=== PATIENT | male | born 1975 | race Caucasian/White ===

== ENCOUNTER 2016-04-11 08:19 | Inpatient (IN) | payer MEDICARE, MEDICAID ==
[~2016-04-11] VITALS: Ht 182.9 cm; Wt 96.6 kg
[2016-04-11] VITALS (9 sets, daily range): BP systolic 110–162; BP diastolic 58–90; PULSE 90–109; RESP 16–22; TEMP 97.4–98.3; O2SAT 95–99
[~2016-04-11 08:19] MED LIST: ALPR.5 PO; AMBI10TA PO; AMIT50TA3 PO; AUGM500T7 PO; COMMODE PAIL WI1 MIS; CRAN125T PO; ENOX40IN SQ; FURO40TA PO; GABA800T PO; HYDR-3583 PO; LACTCAP8 PO; MULT1TAB84 PO; NITR50CA27 PO; OMEP40CA2 PO; PAXI20TA PO; TIZA4CAP3 PO; TRAZ150T75 PO
[2016-04-11] MEDS ORDERED: SODIUM CHLOR 0.9% 1000 ML INJ 1,000 ML IV SCH (08:31)
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
[2016-04-11] MEDS ORDERED: HYDROmorphone HCL PF 1 MG/ML VIAL IVS ONE (08:45)
[2016-04-11] MEDS ORDERED: PANTOPRAZOLE SODIUM 40 MG VIAL IV PUSH ONE (08:45)
[2016-04-11] MEDS ORDERED: ONDANSETRON HCL 4 MG/2 ML VIAL IVP ONE (08:45)
[2016-04-11] MEDS: SODIUM CHLORIDE 0.9% FLUSH 5 ML FLUSH IVF PRN ×2 (09:04→12:04)
[2016-04-11 09:38] LABS: AUTOMATED NEUTROPHIL # 9.9 TH/MM3 (1.8-7.7); BASOPHIL % 0.2 % (0.0-2.0); EOSINOPHIL % 0.4 % (0.0-4.0); HEMATOCRIT 39.3 % (39.0-51.0); LYMPH % 5.3 % (9.0-44.0); LYMPHOCYTE # 0.6 TH/MM3 (1.0-4.8); MEAN CELL VOLUME 77.5 FL (80.0-100.0); MEAN CORPUSCULAR HEMOGLOBIN 24.3 PG (27.0-34.0); MEAN CORPUSCULAR HGB CONC 31.4 % (32.0-36.0); MONO % 2.3 % (0.0-8.0); NEUT % 91.8 % (16.0-70.0); PLATELET COUNT 252 TH/MM3 (150-450); RED BLOOD COUNT 5.07 MIL/MM3 (4.50-5.90); RED CELL DISTRIBUTION WIDTH 14.6 % (11.6-17.2); WHITE BLOOD COUNT 10.7 TH/MM3 (4.0-11.0)
[2016-04-11 09:39] LABS: HEMO FLAGS AUTO DIFF
[2016-04-11 09:44] LABS: BLOOD, URINE NEG (NEG); GLUCOSE,URINE 500 mg/dL (NEG); KETONE, URINE NEG (NEG); NITRITE,URINE NEG (NEG)
[2016-04-11 09:46] LABS: METHOD OF COLLECTION CATH
[2016-04-11 09:46] LABS: BICARBONATE 32.5 MEQ/L (21.0-32.0)
[2016-04-11 09:47] LABS: URINE COLOR YELLOW (YELLW/STRAW)
[2016-04-11 09:49] LABS: COMMENT (UR) CATH; COMMENT2 (UR) MUCOUS PRESENT; SQUAMOUS EPITHELIAL CELL URINE 0-5 /hpf (0-5); TRANSITIONAL EPI CELLS, URINE 0-5 /hpf
[2016-04-11 09:49] LABS: ALT (GPT) 81 U/L (12-78); GLOMERULAR FILTRATION RATE 127 ML/MIN (>89)
[2016-04-11 09:51] LABS: TOTAL BILIRUBIN ADULT 0.7 MG/DL (0.2-1.0)
[2016-04-11 09:52] LABS: ALKALINE PHOSPHATASE 121 U/L (45-117)
[2016-04-11 09:54] LABS: ANION GAP 8 MEQ/L (5-15); CHLORIDE 102 MEQ/L (98-107); POTASSIUM 3.6 MEQ/L (3.5-5.1); SODIUM (NA) 142 MEQ/L (136-145)
[2016-04-11 10:06] LABS: BLOOD UREA NITROGEN 16 MG/DL (7-18)
[2016-04-11 10:07] LABS: AST (GOT) 150 U/L (15-37)
[2016-04-11 10:24] LABS: SCAN/DIFF AUTO DIFF CONFIRMED
[2016-04-11] MEDS ORDERED: IOHEXOL 300 MG/ML 100 ML BTL (for Rad CT) IV ONE (10:37)
--- NOTE | 2016-04-11 11:09 | RADHPO ---
EXAM DATE/TIME: 04/11/2016 10:20 [facility] COMPARISON: CT ABDOMEN & PELVIS W/O CONTRAST, September 26, 2015, 18:29. CT ABDOMEN & PELVIS W CONTRAST, May 08, 2012, 23:47. INDICATIONS: Epigastric pain. Elevated lipase. IV CONTRAST: 95 cc Omnipaque 300 (iohexol) IV ORAL CONTRAST: No oral contrast ingested. RADIATION DOSE: 24.19 CTDIvol (mGy) MEDICAL HISTORY: Gastroesophageal reflux disease. SURGICAL HISTORY: IVC filter. Bilateral thoracotomy. ENCOUNTER: Initial ACUITY: 1 day PAIN SCALE: 1/10 LOCATION: Upper quadrant TECHNIQUE: Volumetric scanning of the abdomen and pelvis was performed. Using automated exposure control and ad justment of the mA and/or kV according to patient size, radiation dose was kept as low as reasonably achievable to obtain optimal diagnostic quality images. FINDINGS: Bibasilar atelectasis and/or scarring is noted. The liver, spleen, pancreas, gallbladder, adrenal glands and kidneys are stable. There is minimal co rtical scarring involving the right posterior kidney. The abdominal aorta is stable. Inferior vena cava filter is noted. no bowel obstruction is noted. The patient is status post bowel surgery in th e region of the sigmoid colon which is stable. The urinary bladder is non-distended and its wall is diffusely thickened. No ascites is noted. There is subcutaneous fluid collection within the right g roin and upper thigh. Previously noted hypertrophic bone formation or possible myositis ossificans w ithin the right hip appears to have been resected. Some hypertrophic bone formation still remains. The collection of fluid in the region of the previously noted bone density measures 8.6 x 4.2 cm. A small calcific density is noted within the region of the left anterior hip also consistent with hyper trophic bone formation or myositis ossificans. Extensive fusion hardware extending from the lower th oracic spine to the lumbar spine is again noted with old severe compression deformities again noted a t T12 and L1. CONCLUSION: 1. Subcutaneous fluid collection within the right groin/upper thigh measuring 8.4 x 4.2 cm in the ex pected location of the previously noted hypertrophic bone or myositis ossificans which may have been resected. This collection likely represents postoperative seroma. 2. No acute intraabdominal process. Christopher Contreras MD on April 11, 2016 at 10:47 Board Certified Radiologist. This report was verified electronically.
[2016-04-11] MEDS ORDERED: PIPERACIL-TAZO 4.5 GM PREMIX 100 ML IV ONE (11:45)
[2016-04-11] MEDS: SODIUM CHLOR 0.9% 1000 ML INJ 1,000 ML IV SCH ×2 (11:52→20:28)
[2016-04-11] MEDS ORDERED: NALOXONE HCL 0.4 MG/ML AMP IV PRN (12:00)
[2016-04-11] MEDS ORDERED: BISACODYL 10 MG SUPP PR PRN (12:00)
[2016-04-11] MEDS ORDERED: SODIUM CHLORIDE 0.9% FLUSH 5 ML FLUSH FLUSH PRN (12:00)
[2016-04-11] MEDS ORDERED: ZOLPIDEM TARTRATE 10 MG TAB PO PRN (12:00)
[2016-04-11] MEDS ORDERED: ALPRAZolam 0.5 MG TAB PO PRN (13:00)
[2016-04-11] MEDS ORDERED: GABAPENTIN 400 MG CAP PO SCH (13:00)
[2016-04-11] MEDS ORDERED: ONDANSETRON HCL 4 MG/2 ML VIAL IVP PRN (13:00)
[2016-04-11] MEDS ORDERED: cefTRIAXone INJ 2,000 MG in SODIUM CHLORIDE 0.9% INJ 100 ML IV SCH (13:00)
[2016-04-11] MEDS ORDERED: ACETAMINOPHEN 325 MG TAB PO PRN (13:00)
[2016-04-11] MEDS ORDERED: PANTOPRAZOLE SOD 40 MG DELAYED RELEASE TAB PO SCH (13:00)
[2016-04-11] MEDS ORDERED: ENOXAPARIN SODIUM 40 MG/0.4 ML SYRINGE SQ SCH (14:00)
[2016-04-11] MEDS: GABAPENTIN 300 MG CAP PO SCH ×3 (14:48→20:43)
[2016-04-11] MEDS: DOCUSATE SODIUM 100 MG CAP PO SCH ×2 (14:56→20:34)
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
[2016-04-11] MEDS: SODIUM CHLORIDE 0.9% FLUSH 5 ML FLUSH FLUSH SCH (20:35)
[2016-04-11] MEDS ORDERED: traZODone HCL 50 MG TAB PO SCH (21:00)
[2016-04-11] MEDS ORDERED: MAGNESIUM HYDROXIDE SUSP 30 ML CUP PO PRN (21:00)
[2016-04-11] MEDS ORDERED: AMITRIPTYLINE HCL 50 MG TAB PO SCH (21:00)
[2016-04-12] VITALS: BP 127/78; PULSE 87; RESP 20; TEMP 98.7; O2SAT 98
[2016-04-12] MEDS: HYDROmorphone HCL PF 1 MG/ML VIAL IV PRN ×2 (01:03→04:40)
[2016-04-12 04:00] VITALS: BP 126/75; PULSE 78; RESP 20; TEMP 99; O2SAT 100
[2016-04-12] MEDS: SODIUM CHLOR 0.9% 1000 ML INJ 1,000 ML IV SCH (04:41)
[2016-04-12 05:42] LABS: AUTOMATED NEUTROPHIL # 3.2 TH/MM3 (1.8-7.7); BASOPHIL % 0.7 % (0.0-2.0); CHLORIDE 102 MEQ/L (98-107); EOSINOPHIL # 0.1 TH/MM3 (0-0.4); EOSINOPHIL % 2.3 % (0.0-4.0); HEMATOCRIT 37.6 % (39.0-51.0); LYMPHOCYTE # 1.8 TH/MM3 (1.0-4.8); MEAN CELL VOLUME 77.4 FL (80.0-100.0); MEAN CORPUSCULAR HEMOGLOBIN 24.2 PG (27.0-34.0); MEAN CORPUSCULAR HGB CONC 31.3 % (32.0-36.0); MONO % 5.6 % (0.0-8.0); NEUT % 58.4 % (16.0-70.0); PLATELET COUNT 237 TH/MM3 (150-450); POTASSIUM 3.7 MEQ/L (3.5-5.1); RED BLOOD COUNT 4.86 MIL/MM3 (4.50-5.90); RED CELL DISTRIBUTION WIDTH 15.1 % (11.6-17.2); SODIUM (NA) 141 MEQ/L (136-145); WHITE BLOOD COUNT 5.4 TH/MM3 (4.0-11.0)
[2016-04-12 05:46] LABS: ANION GAP 6 MEQ/L (5-15); BICARBONATE 32.9 MEQ/L (21.0-32.0)
[2016-04-12 05:57] LABS: ALKALINE PHOSPHATASE 172 U/L (45-117); ALT (GPT) 270 U/L (12-78); AST (GOT) 276 U/L (15-37); BLOOD UREA NITROGEN 5 MG/DL (7-18); GLOMERULAR FILTRATION RATE 149 ML/MIN (>89); TOTAL BILIRUBIN ADULT 1.2 MG/DL (0.2-1.0)
[2016-04-12 06:18] LABS: HEMO FLAGS AUTO DIFF
[2016-04-12 07:21] LABS: SCAN/DIFF AUTO DIFF CONFIRMED
[2016-04-12 08:00] VITALS: BP 111/76; PULSE 102; RESP 18; TEMP 98.1; O2SAT 95
[2016-04-12] MEDS: SODIUM CHLORIDE 0.9% FLUSH 5 ML FLUSH FLUSH SCH (08:14)
[2016-04-12] MEDS: GABAPENTIN 300 MG CAP PO SCH (08:15)
[2016-04-12] MEDS: DOCUSATE SODIUM 100 MG CAP PO SCH (08:16)
[2016-04-12] MEDS ORDERED: FUROSEMIDE 40 MG TAB PO SCH (09:00)
[2016-04-12] MEDS ORDERED: MULTIVITAMINS/MINERALS THERAPEUTIC TAB PO SCH (09:00)
[2016-04-12] MEDS ORDERED: PARoxetine HCL 20 MG TAB PO SCH (09:00)
[2016-04-12] MEDS ORDERED: PANTOPRAZOLE SOD 40 MG DELAYED RELEASE TAB PO SCH (09:00)
[2016-04-12] MEDS ORDERED: POLYETHYLENE GLYCOL 17 GM PKG PO SCH (11:03)
[2016-04-12] MEDS ORDERED: CIPR-9 PO (11:05)
[2016-04-12] MEDS ORDERED: MIRA33504 PO (11:05)
--- NOTE | 2016-04-12 11:06 | HHI.DCPOC ---
Discharge Care Plan Diagnosis: (1) Urinary tract infection (2) Pancreatitis Goals to Promote Your Health * To prevent worsening of your condition and complications * To maintain your health at the optimal level Directions to Meet Your Goals Take your medications as prescribed Follow your dietary instruction Follow activity as directed Keep your appointments as scheduled Take your immunizations and boosters as scheduled If your symptoms worsen call your PCP, if no PCP go to Urgent Care Center or Emergency Room Smoking is Dangerous to Your Health. Avoid second hand smoke Call the 24-hour hour crisis hotline for domestic abuse at Katherine Epperson MD Apr 12, 2016 11:06
--- NOTE | 2016-04-12 11:09 | HHI.DS ---
Discharge Summary Admission Date Apr 11, 2016 at 11:47 Discharge Date: Apr 12, 2016 Admitting Diagnosis ACUTE PANCREATITIS (1) Pancreatitis ICD Code: K85.90 (2) Alcohol abuse ICD Code: F10.10 Procedures None Brief History - From Admission This is a 40-year-old male with past medical history of T12 paraplegia who presented to the ER today complaining of epigastric pain. The patient states he is actually had intermittent epigastric pain ongoing since December of this year. He has been to our hospital several times and has had a CTA pulmonary angiogram which was negative, nuclear cardiac stress test which was negative. However today his lipase is elevated at 8000, however abdominal CT scan is without evidence of pancreatitis and there are no gallstones present. The patient states that the pain currently has resolved. Plans are made for him to undergo an ultrasound. The patient states that he has been drinking about 4-6 beers daily over the holidays. He admits to a past history of heavy drinking before he was paralyzed. The patient did have one episode of vomiting but none since. He has found no talkative factors. Most of the time the pain comes at night. He does take a PPI. He has never had an endoscopy. Alleviating factors are pain medicine. Pain described as severe and usually lasts about 25 minutes and then self resolves. He does get transiently short of breath during these episodes. The patient has UA indicative of infection but he denies fever or chills. CBC/BMP: 04/12/16 0507 04/12/16 0507 Significant Findings Laboratory Tests Test 04/11/16 04/11/16 04/12/16 09:20 09:35 05:07 Hemoglobin 12.3 GM/DL 11.8 GM/DL (13.0-17.0) (13.0-17.0) Mean Corpuscular Volume 77.5 FL 77.4 FL (80.0-100.0) (80.0-100.0) Mean Corpuscular Hemoglobin 24.3 PG 24.2 PG (27.0-34.0) (27.0-34.0) Mean Corpuscular Hemoglobin 31.4 % 31.3 % Concent (32.0-36.0) (32.0-36.0) Mean Platelet Volume 6.9 FL (7.0-11.0) Neutrophils (%) (Auto) 91.8 % (16.0-70.0) Lymphocytes (%) (Auto) 5.3 % (9.0-44.0) Neutrophils # (Auto) 9.9 TH/MM3 (1.8-7.7) Lymphocytes # (Auto) 0.6 TH/MM3 (1.0-4.8) Carbon Dioxide Level 32.5 MEQ/L 32.9 MEQ/L (21.0-32.0) (21.0-32.0) Random Glucose 195 MG/DL 115 MG/DL (74-106) (74-106) Aspartate Amino Transf 150 U/L (15-37) 276 U/L (15-37) (AST/SGOT) Alanine Aminotransferase 81 U/L (12-78) 270 U/L (12-78) (ALT/SGPT) Alkaline Phosphatase 121 U/L 172 U/L (45-117) (45-117) Lipase 8542 U/L (73-393) Urine Glucose (UA) 500 mg/dL (NEG) Urine Leukocyte Esterase TRACE (NEG) Urine WBC 20-24 /hpf (0-5) Urine WBC Clumps FEW (NONE) Hematocrit 37.6 % (39.0-51.0) Blood Urea Nitrogen 5 MG/DL (7-18) Calcium Level 8.1 MG/DL (8.5-10.1) Total Bilirubin 1.2 MG/DL (0.2-1.0) Albumin 3.3 GM/DL (3.4-5.0) Imaging Last Impressions Abdomen/Pelvis CT 04/11/16 1003 Signed Impressions: Service Date/Time: Monday, April 11, 2016 10:20 - CONCLUSION: 1. Subcutaneous fluid collection within the right groin/upper thigh measuring 8.4 x 4.2 cm in the expected location of the previously noted hypertrophic bone or myositis ossificans which may have been resected. This collection likely represents postoperative seroma. 2. No acute intraabdominal process. Christopher Contreras MD PE at Discharge GENERAL: This is a well-nourished, well-developed patient, in no apparent distress. CARDIOVASCULAR: Regular rate and rhythm without murmurs, gallops, or rubs. RESPIRATORY: Clear to auscultation. Breath sounds equal bilaterally. No wheezes , rales, or rhonchi. GASTROINTESTINAL: Abdomen soft, non-tender, nondistended. Normal active bowel sounds MUSCULOSKELETAL: Extremities without clubbing, cyanosis, or edema. NEURO: Alert & Oriented x4 to person, place, time, situation. Moves all ext x4 Pt update on day of discharge Patient seen today in follow-up for abdominal pain which is resolved. Patient pancreatic enzymes are resolved. Patient reports intermittent constipation which is aggravated by his narcotics. Hospital Course This patient is a 40-year-old gentleman with known history of paraplegia. He had elevated lipase with associated abdominal discomfort on arrival and seemed to resolve. Patient has had this intermittently over the last several months. This time patient is doing well. Pain is resolved and patient has no nausea and vomiting. Tolerating his diet. Does have evidence of urinary tract self catheter due to neurogenic bladder. He'll follow-up with his urologist and will follow with visualizer. Patient may need follow-up as an outpatient for gallstones Pt Condition on Discharge: Good Discharge Disposition: Discharge Home Discharge Time: > 30 minutes Discharge Instructions DIET: Follow Instructions for: As Tolerated, No Restrictions Activities you can perform: Regular-No Restrictions Follow up Referrals: PCP Follow-up New Medications: Ciprofloxacin (Cipro) 500 Mg Tab 500 MG PO BID Infection #14 Ref 0 TAB Polyethylene Glycol 3350 Powder (Miralax Powder) 17 Gm Powd 17 GM PO DAILY Mix and dissolve one measuring cap-ful (17 grams) in water or juice. Constipation #1 Ref 0 BOTTLE Continued Medications: Alprazolam (Xanax) 0.5 Mg Tab 0.5 MG PO QID PRN ANXIETY Ref 0 TAB Amitriptyline (Amitriptyline) 50 Mg Tab 50 MG PO HS Control Depression #30 Ref 0 TAB Cranberry (Vaccinium Macrocarpon) (Cranberry) 125 Mg Tab 8400 MG PO DAILY Furosemide (Furosemide) 40 Mg Tab 40 MG PO DAILY #30 Ref 0 TAB Gabapentin (Gabapentin) 800 Mg Tab 900 MG PO QID #90 Ref 0 TAB Hydrocodone-Acetaminophen (Hydrocodone-Acetaminophen) 10-325 mg Tab 1 TAB PO Q6H PRN PAIN Ref 0 TAB Multiple Vitamins W/ Minerals (Multivitamin Adults) 1 Tab 0.5 TAB PO DAILY Nutritional Supplement Ref 0 TAB Omeprazole (Omeprazole) 40 Mg Cap 40 MG PO DAILY #30 Ref 0 CAP Paroxetine (Paxil) 20 Mg Tab 20 MG PO DAILY #30 Ref 0 TAB Tizanidine (Tizanidine) 4 Mg Cap 4 MG PO BID Muscle Spasm Ref 0 CAP Trazodone (Trazodone) 150 Mg Tab 150 MG PO HS Control Depression #30 Ref 0 TAB Zolpidem (Ambien) 10 Mg Tab 10 MG PO HS PRN INSOMNIA Ref 0 TAB Katherine Epperson MD Apr 12, 2016 11:09
[2016-04-12 12:00] VITALS: BP 118/77; PULSE 98; RESP 18; TEMP 98; O2SAT 94
--- NOTE | 2016-04-12 14:11 | EKG ---
Date Performed: 04/11/2016 Time Performed: 08:34:34 PTAGE: 40 years EKG: Sinus rhythm with PAC(s) Anteroseptal T wave changes are nonspecific Since previous tracing, no significant vargas e noted Borderline ECG PREVIOUS TRACING : 12/10/2015 04.25 DOCTOR: Orville Low Interpretating Date/Time 04/12/2016 14:01:54
[2016-05-20] MEDS ORDERED: MIRA33504 PO (11:26)
[2016-05-20] MEDS ORDERED: shower chair (11:27)
[2016-05-20] MEDS ORDERED: BEDSIDE COMMODE1 MI1 (11:27)
[2016-05-23] MEDS ORDERED: BACT800T5 PO (17:00)
[2016-06-28] MEDS ORDERED: BACT800T5 PO (13:24)
== END 2016-04-12 12:54 | disposition home or self-care (01) | DRG 439 ==
LOC: PHED 08:19 → PHEDA 11:47 → PH3B 12:55
PROVIDERS: ADMIT Hospitalist; ATTEND Hospitalist
DX: K85.90 Acute pancreatitis without necrosis or infection, unspecified (principal); N30.00 Acute cystitis without hematuria; G82.20 Paraplegia, unspecified; L89.319 Pressure ulcer of right buttock, unspecified stage; L89.329 Pressure ulcer of left buttock, unspecified stage; Z87.440 Personal history of urinary (tract) infections; G89.29 Other chronic pain; K21.9 Gastro-esophageal reflux disease without esophagitis; F10.10 Alcohol abuse, uncomplicated; N31.9 Neuromuscular dysfunction of bladder, unspecified; F41.9 Anxiety disorder, unspecified; F32.9 Major depressive disorder, single episode, unspecified; G47.00 Insomnia, unspecified; Z87.891 Personal history of nicotine dependence; Z87.820 Personal history of traumatic brain injury
CPT/HCPCS: 74177; 80053; 81001; 83690; 85025; 93005; 96361; 96374; 96375; C9113; J0696; J1170; J1650; J2405; J2543; J7030; Q9967

== ENCOUNTER → 2016-05-20 | Outpatient (CLI) | payer MEDICARE, MEDICAID ==
[~2016-05-20] MED LIST changes: +ADDE20 PO; -AUGM500T7 PO; +BACT800T5 PO; +BEDSIDE COMMODE1 MI1; -COMMODE PAIL WI1 MIS; +CRAN600T PO; -ENOX40IN SQ; +GABA300C5 PO; -LACTCAP8 PO; +MIRA33504 PO; -NITR50CA27 PO; +shower chair
[2016-05-20 12:59] LABS: AUTOMATED NEUTROPHIL # 3.4 TH/MM3 (1.8-7.7); BASOPHIL % 0.9 % (0.0-2.0); EOSINOPHIL # 0.1 TH/MM3 (0-0.4); EOSINOPHIL % 1.9 % (0.0-4.0); LYMPH % 21.8 % (9.0-44.0); LYMPHOCYTE # 1.1 TH/MM3 (1.0-4.8); MEAN CELL VOLUME 76.7 FL (80.0-100.0); MEAN CORPUSCULAR HEMOGLOBIN 24.3 PG (27.0-34.0); MEAN CORPUSCULAR HGB CONC 31.7 % (32.0-36.0); MONO % 8.2 % (0.0-8.0); NEUT % 67.2 % (16.0-70.0); PLATELET COUNT 265 TH/MM3 (150-450); RED BLOOD COUNT 5.35 MIL/MM3 (4.50-5.90); RED CELL DISTRIBUTION WIDTH 16.6 % (11.6-17.2); WHITE BLOOD COUNT 5.1 TH/MM3 (4.0-11.0)
[2016-05-20 13:09] LABS: HEMO FLAGS AUTO DIFF
[2016-05-20 13:50] LABS: SCAN/DIFF AUTO DIFF CONFIRMED
== END ==
LOC: CPRE 10:55
PROVIDERS: ATTEND Urology
DX: Z01.812 Encounter for preprocedural laboratory examination (principal); N52.9 Male erectile dysfunction, unspecified
CPT/HCPCS: 36415; 85025

== ENCOUNTER 2016-05-31 07:33 | Observation (INO) | payer MEDICARE, MEDICAID ==
[~2016-05-31] VITALS: Ht 177.8 cm; Wt 120.0 kg
[~2016-05-31 07:33] MED LIST changes: -ADDE20 PO; -CRAN600T PO; -GABA300C5 PO; -GENTAMICIN INJ 240 MG in SODIUM CHLORIDE 0.9% INJ 100 ML IV SCH; -INSULIN HUMAN REGULAR 1,000 UNITS/10 ML VIAL SQ PRN; -LACTATED RINGER'S 1000 ML IV SCH; -METOPROLOL TARTRATE 25 MG TAB PO PRN; -SODIUM CHLORID 0.9% 500 ML IV SCH; -VANCOMYCIN HCL 1000 MG ON-CALL/NS 250 ML IV SCH
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
[2016-05-31] MEDS ORDERED: AMPICILLIN-SULBACTAM INJ 3 GM in SODIUM CHLORIDE 0.9% INJ 100 ML IV ONE (07:45)
[2016-05-31 07:53] VITALS: BP 139/78; PULSE 78; RESP 18; O2SAT 98
--- NOTE | 2016-05-31 08:22 | PD ---
Data Data Last Documented VS Vital Signs Date Time Temp Pulse Resp B/P Pulse Ox O2 Delivery O2 Flow Rate FiO2 05/31/16 07:53 78 18 139/78 98 Orders Complete Blood Count With Diff (05/31/16 07:36) Blood Culture (05/31/16 07:36) Comprehensive Metabolic Panel (05/31/16 07:36) Lactic Acid Sepsis Protocol (05/31/16 07:36) Urinalysis - C+S If Indicated (05/31/16 07:36) Ampicillin-Sulbactam Inj (Unasyn Inj) (05/31/16 07:45) Pressure Ulcer Assessment/Mia PARAS.QSHIFT (05/31/16 07:59) MDM Supervised Visit with KEVIN: Yes Narrative Course The history, exam, and medical decision-making in the associated mid-level provider note were completed with my assistance. I reviewed and agree with the findings presented. I attest that I had a [id number] encounter with the patient on the same day, and personally performed and documented my assessment and findings in the medical record. *My assessment and Findings: This is a 40-year-old man with a history of paraplegia who presents to the emergency department sent from the OR where he was scheduled to have an urologic procedure when they noted that he had 3 days of worsening pain redness swelling and edema and warmth to his legs after he got bit and scratched by a new cat. He has no sensation in his legs. He also apparently had some fevers. He has multiple puncture wounds and scrapes on the legs without obvious evidence of cellulitis. No tachycardia fever evidence of sepsis here. We'll check labs, IV antibiotics, admission for observation. Diagnosis Primary Impression: Bilateral lower leg cellulitis Lucho Cat MD May 31, 2016 08:22
[2016-05-31 08:34] LABS: AUTOMATED NEUTROPHIL # 2.8 TH/MM3 (1.8-7.7); BASOPHIL % 0.6 % (0.0-2.0); EOSINOPHIL # 0.2 TH/MM3 (0-0.4); EOSINOPHIL % 4.4 % (0.0-4.0); HEMATOCRIT 36.2 % (39.0-51.0); LYMPH % 24.5 % (9.0-44.0); LYMPHOCYTE # 1.1 TH/MM3 (1.0-4.8); MEAN CELL VOLUME 75.3 FL (80.0-100.0); MEAN CORPUSCULAR HEMOGLOBIN 24.8 PG (27.0-34.0); MEAN CORPUSCULAR HGB CONC 32.9 % (32.0-36.0); MONO % 7.9 % (0.0-8.0); NEUT % 62.6 % (16.0-70.0); PLATELET COUNT 276 TH/MM3 (150-450); WHITE BLOOD COUNT 4.5 TH/MM3 (4.0-11.0)
[2016-05-31 08:37] LABS: HEMO FLAGS AUTO DIFF
[2016-05-31 08:38] LABS: BLOOD, URINE NEG (NEG); COMMENT (UR) CATH-CULT NOT IND; CULTURE IF INDICATED CATH CULTURE NOT IND; GLUCOSE,URINE NEG (NEG); KETONE, URINE NEG (NEG); MUCUS URINE FEW /lpf (OCC); NITRITE,URINE NEG (NEG); SQUAMOUS EPITHELIAL CELL URINE <1 /hpf (0-5); URINE COLOR YELLOW (YELLW/STRAW)
[2016-05-31 09:07] LABS: SCAN/DIFF AUTO DIFF CONFIRMED
[2016-05-31 09:11] LABS: ALKALINE PHOSPHATASE 85 U/L (45-117); ALT (GPT) 23 U/L (12-78); ANION GAP 5 MEQ/L (5-15); BICARBONATE 34.6 MEQ/L (21.0-32.0); BLOOD UREA NITROGEN 8 MG/DL (7-18); CHLORIDE 97 MEQ/L (98-107); GLOMERULAR FILTRATION RATE 119 ML/MIN (>89); SODIUM (NA) 137 MEQ/L (136-145); TOTAL BILIRUBIN ADULT 0.3 MG/DL (0.2-1.0)
[2016-05-31 09:17] LABS: AST (GOT) 40 U/L (15-37); POTASSIUM 4.3 MEQ/L (3.5-5.1)
[2016-05-31] MEDS ORDERED: ADDE20 PO (09:24)
[2016-05-31] MEDS ORDERED: GABA300C5 PO (09:24)
[2016-05-31] MEDS ORDERED: CRAN600T PO (09:24)
[2016-05-31] MEDS ORDERED: SODIUM CHLORIDE 0.9% FLUSH 5 ML FLUSH FLUSH PRN (09:45)
[2016-05-31] MEDS ORDERED: ACETAMINOPHEN 325 MG TAB PO PRN ×2 (09:45)
[2016-05-31] MEDS ORDERED: ONDANSETRON HCL 4 MG/2 ML VIAL IVP PRN (09:45)
[2016-05-31] MEDS ORDERED: NALOXONE HCL 0.4 MG/ML AMP IV PRN (09:45)
[2016-05-31] MEDS ORDERED: HEPARIN SODIUM - SQ 10,000 UNITS/ML VIAL SQ SCH (10:00)
[2016-05-31 10:30] VITALS: BP 130/66; PULSE 76; RESP 17; TEMP 97; O2SAT 99
[2016-05-31 12:03] VITALS: BP 128/73; PULSE 91; RESP 20; TEMP 97.7; O2SAT 94
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
[2016-05-31] MEDS ORDERED: ALPRAZolam 0.5 MG TAB PO PRN (14:30)
[2016-05-31] MEDS ORDERED: POVIDONE IODINE 10% SOLN 480 ML BTL TOPICAL ONE (14:30)
[2016-05-31] MEDS ORDERED: ACETAMINOPHEN/HYDROcodone 325 MG/10 MG TAB PO PRN (14:30)
[2016-05-31] MEDS ORDERED: DOCUSATE SODIUM 50 MG/SENNA 8.6 MG TAB PO PRN (14:30)
[2016-05-31] MEDS ORDERED: ZOLPIDEM TARTRATE 10 MG TAB PO PRN (14:30)
[2016-05-31 15:47] VITALS: BP 111/68; PULSE 82; RESP 20; TEMP 98.2; O2SAT 94
[2016-05-31] MEDS ORDERED: AMPICILLIN-SULBACTAM INJ 3 GM in SODIUM CHLORIDE 0.9% INJ 100 ML IV SCH (16:00)
[2016-05-31] MEDS ORDERED: GABAPENTIN 300 MG CAP PO SCH (18:00)
[2016-05-31 19:23] VITALS: BP 137/62; PULSE 104; RESP 18; TEMP 97.1; O2SAT 93
[2016-05-31] MEDS ORDERED: AMITRIPTYLINE HCL 50 MG TAB PO SCH (21:00)
[2016-05-31] MEDS ORDERED: LACTOBACILLUS ACIDOPHILUS TAB PO SCH (21:00)
[2016-05-31] MEDS ORDERED: SODIUM CHLORIDE 0.9% FLUSH 5 ML FLUSH FLUSH SCH (21:00)
[2016-05-31] MEDS ORDERED: traZODone HCL 50 MG TAB PO SCH (21:00)
[2016-06-01] MEDS ORDERED: PARoxetine HCL 20 MG TAB PO SCH (09:00)
[2016-06-01] MEDS ORDERED: FUROSEMIDE 40 MG TAB PO SCH (09:00)
[2016-06-01] MEDS ORDERED: PANTOPRAZOLE SOD 40 MG DELAYED RELEASE TAB PO SCH (09:00)
[2016-06-01] MEDS ORDERED: DEXTROAMPHETAMINE/AMPHETAMINE 20 MG TAB PO SCH (09:00)
[2016-06-01] MEDS ORDERED: COLLAGENASE OINT 30 GM TUBE TOP SCH (09:00)
[2016-06-28] MEDS ORDERED: BACT800T5 PO (13:24)
== END 2016-06-01 00:50 | disposition left against medical advice (07) ==
LOC: NEPC 07:33 → NEDA 09:45 → NEPFCDU 11:44
PROVIDERS: ADMIT Hospitalist; ATTEND Hospitalist
DX: L03.115 Cellulitis of right lower limb (principal); L03.116 Cellulitis of left lower limb; G82.20 Paraplegia, unspecified; G89.29 Other chronic pain; R00.0 Tachycardia, unspecified; R07.9 Chest pain, unspecified; K21.9 Gastro-esophageal reflux disease without esophagitis; Z87.891 Personal history of nicotine dependence; Z79.899 Other long term (current) drug therapy; W55.01XA Bitten by cat, initial encounter; L89.629 Pressure ulcer of left heel, unspecified stage; L89.619 Pressure ulcer of right heel, unspecified stage; N52.9 Male erectile dysfunction, unspecified
CPT/HCPCS: 80053; 81001; 83605; 85025; 87040; 96365; 99285; G0378; G0463; J0295; J1644; 99211

== ENCOUNTER → 2016-05-31 | Day surgery (SDC) | payer MEDICARE, MEDICAID ==
[~2016-05-31] VITALS: Ht 182.9 cm; Wt 90.5 kg
[~2016-05-31] MED LIST changes: +GENTAMICIN INJ 240 MG in SODIUM CHLORIDE 0.9% INJ 100 ML IV SCH; +INSULIN HUMAN REGULAR 1,000 UNITS/10 ML VIAL SQ PRN; +LACTATED RINGER'S 1000 ML IV SCH; +METOPROLOL TARTRATE 25 MG TAB PO PRN; +SODIUM CHLORID 0.9% 500 ML IV SCH; +VANCOMYCIN HCL 1000 MG ON-CALL/NS 250 ML IV SCH; -shower chair
[2016-05-31 07:34] VITALS: BP 127/71; PULSE 89; RESP 20; TEMP 98; O2SAT 99
== END | disposition home or self-care (01) ==
LOC: HSDC 05:36
PROVIDERS: ATTEND Urology
DX: N52.9 Male erectile dysfunction, unspecified (principal); Z53.09 Procedure and treatment not carried out because of other contraindication
CPT/HCPCS: 99211; G0463

== ENCOUNTER 2016-11-10 00:29 | Inpatient (IN) | payer MEDICARE, MEDICAID ==
[2016-11-10] VITALS (9 sets, daily range): BP systolic 110–148; BP diastolic 58–88; PULSE 94–130; RESP 16–20; TEMP 98.1–102.4; O2SAT 95–99
[~2016-11-10] VITALS: Ht 182.9 cm; Wt 98.0 kg
[~2016-11-10 00:29] MED LIST changes: +ADDE20 PO; -BEDSIDE COMMODE1 MI1; -CRAN125T PO; +CRAN600T PO; +GABA300C5 PO; -GABA800T PO; -MIRA33504 PO
[2016-11-10] MEDS ORDERED: SODIUM CHLOR 0.9% 1000 ML INJ 800 ML IV ONE (00:49)
[2016-11-10] MEDS ORDERED: SODIUM CHLOR 0.9% 1000 ML INJ 1,000 ML IV ONE (00:49)
[2016-11-10] MEDS ORDERED: VANCOMYCIN INJ 1,000 MG in SODIUM CHLOR 0.9% 250 ML INJ 250 ML IV ONE (01:00)
[2016-11-10] MEDS ORDERED: MORPHINE SULFATE 4 MG/ML INJ IV PUSH ONE (01:00)
[2016-11-10] MEDS ORDERED: PIPERACIL-TAZO 4.5 GM PREMIX 100 ML IV ONE (01:00)
[2016-11-10] MEDS ORDERED: ACETAMINOPHEN 325 MG TAB PO ONE (01:00)
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
[2016-11-10] MEDS ORDERED: TRAZ1TAB45 PO (01:08)
[2016-11-10] MEDS ORDERED: PARO20TA2 PO (01:08)
[2016-11-10 01:31] LABS: AUTOMATED NEUTROPHIL # 9.4 TH/MM3 (1.8-7.7); BASOPHIL # 0.1 TH/MM3 (0-0.2); BASOPHIL % 0.5 % (0.0-2.0); EOSINOPHIL # 0.1 TH/MM3 (0-0.4); HEMATOCRIT 33.6 % (39.0-51.0); HEMO FLAGS DIFF FINAL; LYMPH % 11.2 % (9.0-44.0); LYMPHOCYTE # 1.3 TH/MM3 (1.0-4.8); MEAN CELL VOLUME 71.6 FL (80.0-100.0); MEAN CORPUSCULAR HEMOGLOBIN 23.4 PG (27.0-34.0); MEAN CORPUSCULAR HGB CONC 32.8 % (32.0-36.0); MONO % 5.4 % (0.0-8.0); NEUT % 81.9 % (16.0-70.0); PLATELET COUNT 401 TH/MM3 (150-450); RED CELL DISTRIBUTION WIDTH 17.8 % (11.6-17.2); WHITE BLOOD COUNT 11.4 TH/MM3 (4.0-11.0)
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
[2016-11-10 01:59] LABS: ALT (GPT) 58 U/L (12-78); ANION GAP 12 MEQ/L (5-15); AST (GOT) 40 U/L (15-37); BLOOD UREA NITROGEN 5 MG/DL (7-18); CHLORIDE 96 MEQ/L (98-107); GLOMERULAR FILTRATION RATE 169 ML/MIN (>89); POTASSIUM 3.6 MEQ/L (3.5-5.1); SODIUM (NA) 134 MEQ/L (136-145)
[2016-11-10 01:59] LABS: BLOOD, URINE NEG (NEG); GLUCOSE,URINE NEG (NEG); KETONE, URINE NEG (NEG); NITRITE,URINE NEG (NEG); SQUAMOUS EPITHELIAL CELL URINE 2 /hpf (0-5); URINE COLOR COLORLESS (YELLW/STRAW)
[2016-11-10 02:00] LABS: ALKALINE PHOSPHATASE 243 U/L (45-117); TOTAL BILIRUBIN ADULT 0.3 MG/DL (0.2-1.0)
[2016-11-10 02:00] LABS: COMMENT (UR) CATH-CULT NOT IND; CULTURE IF INDICATED CATH CULTURE NOT IND
[2016-11-10] MEDS ORDERED: HYDROmorphone HCL PF 1 MG/ML VIAL IV PUSH ONE (02:15)
[2016-11-10] MEDS ORDERED: KETOROLAC TROMETHAMINE 30 MG/ML (IVP) VIAL IV PUSH ONE (02:15)
[2016-11-10] MEDS ORDERED: SODIUM CHLORIDE 0.9% FLUSH 10 ML FLUSH IV FLUSH PRN (02:30)
[2016-11-10] MEDS ORDERED: NALOXONE HCL 0.4 MG/ML AMP IV PRN (02:30)
[2016-11-10] MEDS ORDERED: Vancomycin Consult Pharmacy 1 EA OTHER SCH (02:30)
[2016-11-10] MEDS ORDERED: VANCOMYCIN 1,000 MG/NS 250 ML IV ONE ×2 (03:00)
[2016-11-10 03:22] LABS: LACTIC ACID GHOST NOT REPORTABLE
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
[2016-11-10] MEDS: ACETAMINOPHEN/HYDROcodone 325 MG/10 MG TAB PO PRN ×4 (04:46→22:59)
[2016-11-10] MEDS: DEXTROAMPHETAMINE/AMPHETAMINE 20 MG TAB PO SCH (09:00)
[2016-11-10] MEDS: PARoxetine HCL 20 MG TAB PO SCH (09:04)
[2016-11-10] MEDS: GABAPENTIN 300 MG CAP PO SCH ×4 (09:04→22:59)
[2016-11-10] MEDS: FUROSEMIDE 40 MG TAB PO SCH (09:04)
[2016-11-10] MEDS: ENOXAPARIN SODIUM 40 MG/0.4 ML SYRINGE SQ SCH (09:04)
[2016-11-10] MEDS: PANTOPRAZOLE SOD 40 MG DELAYED RELEASE TAB PO SCH (09:04)
[2016-11-10] MEDS: PIPERACIL-TAZO 4.5 GM PREMIX 100 ML IV SCH ×3 (09:05→23:01)
[2016-11-10] MEDS: SODIUM CHLORIDE 0.9% FLUSH 10 ML FLUSH IV FLUSH SCH ×2 (09:06→23:00)
--- NOTE | 2016-11-10 09:52 | HHI.PR ---
Subjective Remarks in no acute distress. Tmax 102.4. has some pain to the sacral decubiti. Objective Vitals Vital Signs Date Time Temp Pulse Resp B/P Pulse Ox O2 Delivery O2 Flow Rate FiO2 11/10/16 09:08 98.1 94 16 136/71 97 11/10/16 03:32 18 11/10/16 03:32 18 11/10/16 03:30 105 18 110/69 97 Room Air 11/10/16 02:25 99.5 11/10/16 02:19 18 11/10/16 02:19 18 11/10/16 02:00 106 18 126/66 96 Room Air 11/10/16 01:00 96 Room Air 11/10/16 00:49 102.1 128 18 134/77 95 Room Air 11/10/16 00:31 101.6 130 20 124/58 98 Room Air 11/10/16 00:30 102.4 124 18 134/77 97 Room Air I/O 11/09/16 11/09/16 11/09/16 11/10/16 11/10/16 11/10/16 07:00 15:00 23:00 07:00 15:00 23:00 Intake Total 240 ml Balance 240 ml Intake Oral 240 ml Result Diagram: 11/10/160 11/10/1699 Imaging Last Impressions Chest X-Ray 11/10/16 0049 Signed Impressions: Service Date/Time: November 01:09 - CONCLUSION: No acute disease. Dorian Bernardo MD Objective Remarks GENERAL: This is a well-nourished, well-developed patient, in no apparent distress. CARDIOVASCULAR: Regular rate and regular rhythm without murmurs, gallops, or rubs. RESPIRATORY: Clear to auscultation. Breath sounds equal bilaterally. No wheezes , rales, or rhonchi. GASTROINTESTINAL: Abdomen soft, non-tender, nondistended. colostomy in place. Normal, active bowel sounds MUSCULOSKELETAL: Extremities without clubbing, cyanosis, or edema. NEURO: Alert & Oriented x4 to person, place, time, situation. Moves all ext x4 skin; sacral decubiti noted with wound vac in place. Medications and IVs Current Medications Acetaminophen 650 mg 650 mg ONCE ONCE PO Last administered on 11/10/16t 01:20 ; Start 11/10/16 at 01:00; Stop 11/10/16 at 01:01; Status DC Sodium Chloride 1,000 ml @ 1,000 mls/hr Q1H ONCE IV Last administered on 01:21; Start 11/10/16 at 00:49; Stop 11/10/16 at 01:48; Status DC Sodium Chloride 800 ml @ 1,000 mls/hr Q48M ONCE IV Last administered on 01:22; Start 11/10/16 at 00:49; Stop 11/10/16 at 01:36; Status DC Vancomycin HCl 1000 mg/Sodium Chloride 250 ml @ 250 mls/hr ONCE ONCE IV Last administered on 11/10/16 01:26; Start 11/10/16 at 01:00; Stop 11/10/16 at 01:59 ; Status DC Piperacillin Sod/ Tazobactam Sod (Zosyn 4.5 Gm Premix) 100 ml @ 200 mls/hr ONCE ONCE IV Last administered on 11/10/16 01:26; Start 11/10/16 at 01:00; Stop 11/10/16 at 01:29; Status DC Morphine Sulfate (Morphine Inj) 4 mg ONCE ONCE IV PUSH Last administered on 01:20; Start 11/10/16 at 01:00; Stop 11/10/16 at 01:01; Status DC Hydromorphone HCl (Dilaudid Pf Inj) 0.5 mg ONCE ONCE IV PUSH Last administered on 11/10/16 02:21; Start 11/10/16 at 02:15; Stop 11/10/16 at 02:16 ; Status DC Ketorolac Tromethamine (Toradol Inj) 30 mg ONCE ONCE IV PUSH Last administered on 11/10/16 02:35; Start 11/10/16 at 02:15; Stop 11/10/16 at 02:16 ; Status DC Sodium Chloride (NS Flush) 2 ml UNSCH PRN IV FLUSH FLUSH AFTER USING IV ACCESS ; Start 11/10/16 at 02:30 Sodium Chloride (NS Flush) 2 ml BID IV FLUSH Last administered on 11/10/16 09: 06; Start 11/10/16 at 09:00 Naloxone HCl 0.4 mg 0.4 mg UNSCH PRN IV SEE LABEL COMMENTS; Start 11/10/16 at 02:30 Pharmacy Profile Note 0 ml @ 0 mls/hr UNSCH OTHER ; Start 11/10/16 at 02:30 Piperacillin Sod/ Tazobactam Sod 100 ml @ 200 mls/hr Q6H IV Last administered on 11/10/16 09:05; Start 11/10/16 at 08:00 Vancomycin HCl/ Sodium Chloride (Vancomycin Inj/ NS 250 ml Inj) 250 ml @ 250 mls/hr ONCE ONCE IV Last administered on 11/10/16 03:19; Start 11/10/16 at 03 :00; Stop 11/10/16 at 03:59; Status DC Alprazolam (Xanax) 1 mg QID PRN PO ANXIETY; Start 11/10/16 at 04:30 Amitriptyline HCl (Elavil) 50 mg HS PO ; Start 11/10/16 at 21:00 Amphetamine/ Dextroamphetamine (Adderall) 20 mg DAILY PO ; Start 11/10/16 at 09: 00 Furosemide (Lasix) 40 mg DAILY PO Last administered on 11/10/16 09:04; Start 11/10/16 at 09:00 Gabapentin (Neurontin) 900 mg QID PO Last administered on 11/10/16 09:04; Start 11/10/16 at 09:00 Acetaminophen/ Hydrocodone Bitart ([place] 10-325 Mg) 1 tab Q6H PRN PO PAIN Last administered on 11/10/16 04:46; Start 11/10/16 at 04:30 Paroxetine HCl (Paxil) 20 mg DAILY PO Last administered on 11/10/16 09:04; Start 11/10/16 at 09:00 Tizanidine HCl (Zanaflex) 4 mg BID PO ; Start 11/10/16 at 09:00 Pantoprazole Sodium (Protonix) 40 mg DAILY PO Last administered on 11/10/16 09 :04; Start 11/10/16 at 09:00 Trazodone HCl (Desyrel) 150 mg HS PO ; Start 11/10/16 at 21:00 Enoxaparin Sodium 40 mg 40 mg Q24H SQ Last administered on 11/10/16 09:04; Start 11/10/16 at 09:00 Vancomycin HCl/ Sodium Chloride (Vancomycin Inj/ NS 500 ml Inj) 515 ml @ 250 mls/hr Q8H IV ; Start 11/10/16 at 12:00 Miscellaneous Information SPECIFIC LAB TO BE DRAWN:VANCOMYCIN TROUGH DATE TO... ONCE ONCE .XX ; Start 11/11/16 at 03:45; Stop 11/11/16 at 03:46 A/P Assessment and Plan A/P Sepsis - tachycardia, leukocytosis with neutrophilia (WBC 11.4), lactic acidosis ( lactic acid 3) - Antibiotics: IV Zosyn and Vancomycin - wound cultures pending and blood cultures pending - -consult ID ( he's being followed up by as outpatient and he says that he was supposed to start taking po antibiotics today). Sacral decubitus ulcer - consult wound care nurse - consult ID -obtain the record from the [facility] - Pain medication: resume home [place] 10 DVT prophylaxis - Lovenox 40 mg subq q24h Souleymane Lew MD Nov 10, 2016 09:52
[2016-11-10] MEDS: VANCOMYCIN INJ 1,500 MG in SODIUM CHLORID 0.9% 500 ML INJ 500 ML IV SCH ×2 (13:12→23:00)
--- NOTE | 2016-11-10 14:40 | PD.WCN.NOT ---
Wound Consult Description: Sacral decub per Dr Prasad Communicated with: AUBREY Warner Dr Recommendation: 1. Left buttock UNSTAGEABLE: Cleanse daily with Normal Saline. Apply Santyl with light packing of 4x4 gauze and secure with dry cover. 2. Wound VAC to left ischial STAGE 4: Change M-W-F settings @ 125mmHg low continuous suction beginning Monday11/14/16. Additional Information: Patient seen on for wound VAC change to left ischium, current home VAC in use without power. Patient left buttock was also assessed at this time. Left buttock measures 3.8cm x 2.8cm x 2cm of ~80% yellow adherent slough and ~20% red non granulation tissue without odor, without active drainage indicating an unstageable wound of pressure etiology. Wound was cleansed with wound cleanser and gauze and yellow exudate noted to gauze after cleansing. Dressing of NS moistened gauze (wet to dry dressing) applied into wound bed and secured with 4x4 and paper tape until orders for Santyl could be obtained. Left ischium wound vac removed to reveal 100% dark pink, moist, bumpy tissue, no active drainage and no odor present. Wound is likely 100% muscle given the depth and location, with palpable bone not visualized, indicating a stage 4 pressure injury. Supplies obtained from [facility] to replace non working wound VAC patient brought in from home. Left ischium was cleansed with wound cleanser and gauze before placing new wound VAC. Neg Pressure Wound Therapy Wound Location Wound Location: Left ischium Wound Description Length: 5.3cm Width: 5.3cm Depth: 5.6cm Underminin.5cm from 11-12 o'clock Wound bed appearance: 100% pink bumpy moist tissue with open wound margins Periwound appearance: Other (discolored blanching erythema) Settings Suction: 125 mmHg, Continuous Intensity: Low Other Information: Bridged Foam type: Black Number of pieces: 1 Additonal Information Hospital wound VAC obtained from [facility], plugged in, and turned on. Patient home wound VAC was removed from left ischium with AUBREY Warner at bedside during wound VAC change. Wound was cleansed with wound cleanser and gauze. Wound was measured above and noted with no active drainage and no odor. Periwound was skin prepped with Cavilon skin barrier spray from wound to left lateral upper thigh before covering with drape. 1 piece black foam was cut and coiled into wound bed and brought up over drape protecting intact skin to left lateral thigh for trac pad placement (bridging). Black foam was secured with VAC drape.Wound VAC started with settings @125mmHg low continuous suction, working properly without leaks after applying stoma paste to periwound to obtain seal. Next wound VAC change would be Monday11/14/16. If seal is lost and can not be obtained with reinforcement of drape, a wet to dry dressing would be appropriate until new dressing is obtained and placed. Kasey Barba [facility] Nov 10, 2016 14:40
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
--- NOTE | 2016-11-10 20:01 | HHI.PR ---
Addendum to Inpatient Note Additional Information Pt seen and examined chart reviewd Full note to follow Anisa Low MD Nov 10, 2016 20:01
[2016-11-10] MEDS: AMITRIPTYLINE HCL 50 MG TAB PO SCH (22:58)
[2016-11-10] MEDS: traZODone HCL 50 MG TAB PO SCH (22:58)
[2016-11-10] MEDS: ALPRAZolam 0.5 MG TAB PO PRN (23:00)
[2016-11-11] MEDS ORDERED: ZOLPIDEM TARTRATE 10 MG TAB PO ONE (01:15)
[2016-11-11] MEDS: PIPERACIL-TAZO 4.5 GM PREMIX 100 ML IV SCH ×4 (01:44→22:48)
[2016-11-11 02:32] VITALS: BP 110/42; PULSE 97; RESP 17; TEMP 98.2; O2SAT 96
[2016-11-11] MEDS ORDERED: PHARMACY ORDERED LAB ONE (03:45)
[2016-11-11] MEDS: VANCOMYCIN INJ 1,500 MG in SODIUM CHLORID 0.9% 500 ML INJ 500 ML IV SCH (04:05)
[2016-11-11 04:30] VITALS: BP 113/55; PULSE 103; RESP 17; TEMP 98; O2SAT 96
[2016-11-11] MEDS: ACETAMINOPHEN/HYDROcodone 325 MG/10 MG TAB PO PRN ×3 (07:14→17:34)
[2016-11-11 08:00] VITALS: BP 116/67; PULSE 108; RESP 18; TEMP 99; O2SAT 95
[2016-11-11] MEDS: DEXTROAMPHETAMINE/AMPHETAMINE 20 MG TAB PO SCH (09:00)
--- NOTE | 2016-11-11 09:42 | HHI.PR ---
Subjective Remarks overall feels better. no further fever spike. pain is controlled. Objective Vitals Vital Signs Date Time Temp Pulse Resp B/P Pulse Ox O2 Delivery O2 Flow Rate FiO2 11/11/16 08:00 99.0 108 18 116/67 95 11/11/16 04:30 98.0 103 17 113/55 96 11/11/16 02:32 98.2 97 17 110/42 96 11/11/16 00:04 18 11/10/16 16:00 99.2 103 18 148/88 99 I/O 11/10/16 11/10/16 11/10/16 11/11/16 11/11/16 11/11/16 07:00 15:00 23:00 07:00 15:00 23:00 Intake Total 240 ml 852 ml Output Total 1100 ml Balance 240 ml -248 ml Intake Oral 240 ml 152 ml IV Total 700 ml Output Urine Total 1100 ml Result Diagram: 11/10/16 0100 11/10/16 0100 Imaging Last Impressions Chest X-Ray 11/10/16 0049 Signed Impressions: Service Date/Time: November 01:09 - CONCLUSION: No acute disease. Dorian Bernardo MD Objective Remarks GENERAL: This is a well-nourished, well-developed patient, in no apparent distress. CARDIOVASCULAR: Regular rate and regular rhythm without murmurs, gallops, or rubs. RESPIRATORY: Clear to auscultation. Breath sounds equal bilaterally. No wheezes , rales, or rhonchi. GASTROINTESTINAL: Abdomen soft, non-tender, nondistended. colostomy in place. Normal, active bowel sounds MUSCULOSKELETAL: Extremities without clubbing, cyanosis, or edema. NEURO: Alert & Oriented x4 to person, place, time, situation. Moves all ext x4 skin; sacral decubiti noted with wound vac in place. Medications and IVs Current Medications Acetaminophen 650 mg 650 mg ONCE ONCE PO Last administered on 11/10/16 01:20 ; Start 11/10/16 at 01:00; Stop 11/10/16 at 01:01; Status DC Sodium Chloride 1,000 ml @ 1,000 mls/hr Q1H ONCE IV Last administered on 01:21; Start 11/10/16 at 00:49; Stop 11/10/16 at 01:48; Status DC Sodium Chloride 800 ml @ 1,000 mls/hr Q48M ONCE IV Last administered on 01:22; Start 11/10/16 at 00:49; Stop 11/10/16 at 01:36; Status DC Vancomycin HCl 1000 mg/Sodium Chloride 250 ml @ 250 mls/hr ONCE ONCE IV Last administered on 11/10/16 01:26; Start 11/10/16 at 01:00; Stop 11/10/16 at 01:59 ; Status DC Piperacillin Sod/ Tazobactam Sod (Zosyn 4.5 Gm Premix) 100 ml @ 200 mls/hr ONCE ONCE IV Last administered on 11/10/16 01:26; Start 11/10/16 at 01:00; Stop 11/10/16 at 01:29; Status DC Morphine Sulfate (Morphine Inj) 4 mg ONCE ONCE IV PUSH Last administered on 01:20; Start 11/10/16 at 01:00; Stop 11/10/16 at 01:01; Status DC Hydromorphone HCl (Dilaudid Pf Inj) 0.5 mg ONCE ONCE IV PUSH Last administered on 11/10/16 02:21; Start 11/10/16 at 02:15; Stop 11/10/16 at 02:16 ; Status DC Ketorolac Tromethamine (Toradol Inj) 30 mg ONCE ONCE IV PUSH Last administered on 11/10/16 02:35; Start 11/10/16 at 02:15; Stop 11/10/16 at 02:16 ; Status DC Sodium Chloride (NS Flush) 2 ml UNSCH PRN IV FLUSH FLUSH AFTER USING IV ACCESS ; Start 11/10/16 at 02:30 Sodium Chloride (NS Flush) 2 ml BID IV FLUSH Last administered on 11/10/16 23: 00; Start 11/10/16 at 09:00 Naloxone HCl 0.4 mg 0.4 mg UNSCH PRN IV SEE LABEL COMMENTS; Start 11/10/16 at 02:30 Pharmacy Profile Note 0 ml @ 0 mls/hr UNSCH OTHER ; Start 11/10/16 at 02:30 Piperacillin Sod/ Tazobactam Sod 100 ml @ 200 mls/hr Q6H IV Last administered on 11/11/16 01:44; Start 11/10/16 at 08:00 Vancomycin HCl/ Sodium Chloride (Vancomycin Inj/ NS 250 ml Inj) 250 ml @ 250 mls/hr ONCE ONCE IV Last administered on 11/10/16 03:19; Start 11/10/16 at 03 :00; Stop 11/10/16 at 03:59; Status DC Alprazolam (Xanax) 1 mg QID PRN PO ANXIETY Last administered on 11/10/16 23:00 ; Start 11/10/16 at 04:30 Amitriptyline HCl (Elavil) 50 mg HS PO Last administered on 11/10/16 22:58; Start 11/10/16 at 21:00 Amphetamine/ Dextroamphetamine (Adderall) 20 mg DAILY PO ; Start 11/10/16 at 09: 00 Furosemide (Lasix) 40 mg DAILY PO Last administered on 11/10/16 09:04; Start 11/10/16 at 09:00 Gabapentin (Neurontin) 900 mg QID PO Last administered on 11/10/16 22:59; Start 11/10/16 at 09:00 Acetaminophen/ Hydrocodone Bitart ([place] 10-325 Mg) 1 tab Q6H PRN PO PAIN Last administered on 11/11/16 07:14; Start 11/10/16 at 04:30 Paroxetine HCl (Paxil) 20 mg DAILY PO Last administered on 11/10/16 09:04; Start 11/10/16 at 09:00 Tizanidine HCl (Zanaflex) 4 mg BID PO Last administered on 11/10/16 22:59; Start 11/10/16 at 09:00 Pantoprazole Sodium (Protonix) 40 mg DAILY PO Last administered on 11/10/16 09 :04; Start 11/10/16 at 09:00 Trazodone HCl (Desyrel) 150 mg HS PO Last administered on 11/10/16 22:58; Start 11/10/16 at 21:00 Enoxaparin Sodium 40 mg 40 mg Q24H SQ Last administered on 11/10/16 09:04; Start 11/10/16 at 09:00 Vancomycin HCl/ Sodium Chloride (Vancomycin Inj/ NS 500 ml Inj) 515 ml @ 250 mls/hr Q8H IV Last administered on 11/11/16 04:05; Start 11/10/16 at 12:00 Miscellaneous Information SPECIFIC LAB TO BE DRAWN:VANCOMYCIN TROUGH DATE TO... ONCE ONCE .XX Last administered on 11/11/16 03:45; Start 11/11/16 at 03:45; Stop 11/11/16 at 03:46; Status DC Zolpidem Tartrate (Ambien) 10 mg HS PRN PO INSOMNIA; Start 11/11/16 at 01:15 Zolpidem Tartrate (Ambien) 10 mg ONCE ONCE PO Last administered on 11/11/16 01:44; Start 11/11/16 at 01:15; Stop 11/11/16 at 01:16; Status DC A/P Assessment and Plan A/P Sepsis with sacral decubiti - tachycardia, leukocytosis with neutrophilia (WBC 11.4), lactic acidosis ( lactic acid 3) - Antibiotics: IV Zosyn and Vancomycin - wound cultures and blood cultures pending - -ID consult appreciated. Sacral decubitus ulcer - wound care evaluation appreciated. - consulted ID - continue pain control DVT prophylaxis - Lovenox 40 mg subq q24h Souleymane Lew MD Nov 11, 2016 09:42
[2016-11-11] MEDS: SODIUM CHLORIDE 0.9% FLUSH 10 ML FLUSH IV FLUSH SCH ×2 (10:05→22:48)
[2016-11-11] MEDS: PANTOPRAZOLE SOD 40 MG DELAYED RELEASE TAB PO SCH (10:06)
[2016-11-11] MEDS: PARoxetine HCL 20 MG TAB PO SCH (10:06)
[2016-11-11] MEDS: GABAPENTIN 300 MG CAP PO SCH ×4 (10:06→22:48)
[2016-11-11] MEDS: FUROSEMIDE 40 MG TAB PO SCH (10:06)
[2016-11-11] MEDS: ENOXAPARIN SODIUM 40 MG/0.4 ML SYRINGE SQ SCH (10:07)
[2016-11-11 10:24] LABS: AUTOMATED NEUTROPHIL # 5.1 TH/MM3 (1.8-7.7); BASOPHIL # 0.1 TH/MM3 (0-0.2); EOSINOPHIL # 0.3 TH/MM3 (0-0.4); EOSINOPHIL % 3.8 % (0.0-4.0); HEMATOCRIT 29.9 % (39.0-51.0); HEMO FLAGS DIFF FINAL; LYMPH % 18.5 % (9.0-44.0); LYMPHOCYTE # 1.4 TH/MM3 (1.0-4.8); MEAN CELL VOLUME 72.4 FL (80.0-100.0); MEAN CORPUSCULAR HGB CONC 31.8 % (32.0-36.0); MONO % 7.1 % (0.0-8.0); NEUT % 69.6 % (16.0-70.0); PLATELET COUNT 371 TH/MM3 (150-450); RED BLOOD COUNT 4.13 MIL/MM3 (4.50-5.90); RED CELL DISTRIBUTION WIDTH 17.9 % (11.6-17.2); WHITE BLOOD COUNT 7.3 TH/MM3 (4.0-11.0)
[2016-11-11 11:03] LABS: BICARBONATE 29.4 MEQ/L (21.0-32.0); POTASSIUM 3.4 MEQ/L (3.5-5.1)
[2016-11-11] MEDS: ALPRAZolam 0.5 MG TAB PO PRN ×2 (11:43→22:49)
[2016-11-11 12:00] VITALS: BP 136/78; PULSE 105; RESP 16; TEMP 99; O2SAT 93
[2016-11-11] MEDS ORDERED: POTASSIUM CHLORIDE 10 MEQ CAP PO ONE (13:00)
[2016-11-11 16:00] VITALS: BP 112/78; PULSE 96; RESP 18; TEMP 98.4; O2SAT 97
[2016-11-11 20:00] VITALS: BP 141/87; PULSE 105; RESP 20; TEMP 98.2; O2SAT 100
[2016-11-11] MEDS: traZODone HCL 50 MG TAB PO SCH (22:49)
[2016-11-11] MEDS: AMITRIPTYLINE HCL 50 MG TAB PO SCH (22:49)
[2016-11-12] VITALS: BP 112/59; PULSE 101; RESP 18; TEMP 99; O2SAT 96
[2016-11-12] MEDS: PIPERACIL-TAZO 4.5 GM PREMIX 100 ML IV SCH ×4 (02:00→23:52)
[2016-11-12 06:47] VITALS: PULSE 108
[2016-11-12 08:00] VITALS: BP_SYST 123; BP_SYST 143; BP_DIAS 58; BP_DIAS 66; PULSE 107; PULSE 79; PULSE 98; RESP 16; RESP 17; TEMP 97.5; TEMP 98.8; O2SAT 94; O2SAT 97
[2016-11-12] MEDS: FUROSEMIDE 40 MG TAB PO SCH (08:14)
[2016-11-12] MEDS: GABAPENTIN 300 MG CAP PO SCH ×4 (08:14→23:50)
[2016-11-12 08:15] LABS: AUTOMATED NEUTROPHIL # 7.4 TH/MM3 (1.8-7.7); BASOPHIL # 0.1 TH/MM3 (0-0.2); BASOPHIL % 0.8 % (0.0-2.0); EOSINOPHIL # 0.2 TH/MM3 (0-0.4); EOSINOPHIL % 2.6 % (0.0-4.0); HEMATOCRIT 33.7 % (39.0-51.0); HEMO FLAGS DIFF FINAL; LYMPH % 12.9 % (9.0-44.0); LYMPHOCYTE # 1.2 TH/MM3 (1.0-4.8); MEAN CELL VOLUME 72.2 FL (80.0-100.0); MEAN CORPUSCULAR HGB CONC 31.8 % (32.0-36.0); MONO % 5.4 % (0.0-8.0); NEUT % 78.3 % (16.0-70.0); PLATELET COUNT 368 TH/MM3 (150-450); RED BLOOD COUNT 4.66 MIL/MM3 (4.50-5.90); RED CELL DISTRIBUTION WIDTH 17.7 % (11.6-17.2); WHITE BLOOD COUNT 9.5 TH/MM3 (4.0-11.0)
[2016-11-12] MEDS: PARoxetine HCL 20 MG TAB PO SCH (08:15)
[2016-11-12] MEDS: PANTOPRAZOLE SOD 40 MG DELAYED RELEASE TAB PO SCH (08:15)
[2016-11-12] MEDS: ALPRAZolam 0.5 MG TAB PO PRN ×2 (08:15→23:51)
[2016-11-12] MEDS: SODIUM CHLORIDE 0.9% FLUSH 10 ML FLUSH IV FLUSH SCH ×2 (08:16→23:50)
[2016-11-12] MEDS: DEXTROAMPHETAMINE/AMPHETAMINE 20 MG TAB PO SCH (08:16)
[2016-11-12] MEDS: ACETAMINOPHEN/HYDROcodone 325 MG/10 MG TAB PO PRN ×3 (08:16→23:51)
[2016-11-12] MEDS: ENOXAPARIN SODIUM 40 MG/0.4 ML SYRINGE SQ SCH (08:17)
--- NOTE | 2016-11-12 10:09 | HHI.PR ---
Subjective Remarks resting comfortably with no distress. pain seems to be fairly controlled. no fever. d/w the RN. Objective Vitals Vital Signs Date Time Temp Pulse Resp B/P Pulse Ox O2 Delivery O2 Flow Rate FiO2 11/12/16 08:00 98.8 98 17 143/66 97 11/12/16 08:00 107 11/12/16 06:47 108 11/12/16 00:00 99.0 101 18 112/59 96 11/11/16 20:00 98.2 105 20 141/87 100 11/11/16 16:00 98.4 96 18 112/78 97 11/11/16 12:00 99.0 105 16 136/78 93 I/O 11/11/16 11/11/16 11/11/16 11/12/16 11/12/16 11/12/16 07:00 15:00 23:00 07:00 15:00 23:00 Intake Total 852 ml 520 ml Output Total 1100 ml 925 ml 1900 ml Balance -248 ml -925 ml -1380 ml Intake Oral 152 ml 120 ml IV Total 700 ml 400 ml Output Urine Total 1100 ml 925 ml 1900 ml # Bowel Movements 0 Result Diagram: 11/12/16 0733 11/11/16 0920 Imaging Last Impressions Chest X-Ray 11/10/16 0049 Signed Impressions: Service Date/Time: November 01:09 - CONCLUSION: No acute disease. Dorian Bernardo MD Objective Remarks GENERAL: This is a well-nourished, well-developed patient, in no apparent distress. CARDIOVASCULAR: Regular rate and regular rhythm without murmurs, gallops, or rubs. RESPIRATORY: Clear to auscultation. Breath sounds equal bilaterally. No wheezes , rales, or rhonchi. GASTROINTESTINAL: Abdomen soft, non-tender, nondistended. colostomy in place. Normal, active bowel sounds MUSCULOSKELETAL: Extremities without clubbing, cyanosis, or edema. NEURO: awake and alert skin; sacral decubiti noted with wound vac in place. Medications and IVs Current Medications Acetaminophen 650 mg 650 mg ONCE ONCE PO Last administered on 11/10/16t 01:20 ; Start 11/10/16 at 01:00; Stop 11/10/16 at 01:01; Status DC Sodium Chloride 1,000 ml @ 1,000 mls/hr Q1H ONCE IV Last administered on 01:21; Start 11/10/16 at 00:49; Stop 11/10/16 at 01:48; Status DC Sodium Chloride 800 ml @ 1,000 mls/hr Q48M ONCE IV Last administered on 01:22; Start 11/10/16 at 00:49; Stop 11/10/16 at 01:36; Status DC Vancomycin HCl 1000 mg/Sodium Chloride 250 ml @ 250 mls/hr ONCE ONCE IV Last administered on 11/10/16 01:26; Start 11/10/16 at 01:00; Stop 11/10/16 at 01:59 ; Status DC Piperacillin Sod/ Tazobactam Sod (Zosyn 4.5 Gm Premix) 100 ml @ 200 mls/hr ONCE ONCE IV Last administered on 11/10/16 01:26; Start 11/10/16 at 01:00; Stop 11/10/16 at 01:29; Status DC Morphine Sulfate (Morphine Inj) 4 mg ONCE ONCE IV PUSH Last administered on 01:20; Start 11/10/16 at 01:00; Stop 11/10/16 at 01:01; Status DC Hydromorphone HCl (Dilaudid Pf Inj) 0.5 mg ONCE ONCE IV PUSH Last administered on 11/10/16 02:21; Start 11/10/16 at 02:15; Stop 11/10/16 at 02:16 ; Status DC Ketorolac Tromethamine (Toradol Inj) 30 mg ONCE ONCE IV PUSH Last administered on 11/10/16 02:35; Start 11/10/16 at 02:15; Stop 11/10/16 at 02:16 ; Status DC Sodium Chloride (NS Flush) 2 ml UNSCH PRN IV FLUSH FLUSH AFTER USING IV ACCESS ; Start 11/10/16 at 02:30 Sodium Chloride (NS Flush) 2 ml BID IV FLUSH Last administered on 11/12/16 08: 16; Start 11/10/16 at 09:00 Naloxone HCl 0.4 mg 0.4 mg UNSCH PRN IV SEE LABEL COMMENTS; Start 11/10/16 at 02:30 Pharmacy Profile Note 0 ml @ 0 mls/hr UNSCH OTHER ; Start 11/10/16 at 02:30 Piperacillin Sod/ Tazobactam Sod 100 ml @ 200 mls/hr Q6H IV Last administered on 11/12/16 08:16; Start 11/10/16 at 08:00 Vancomycin HCl/ Sodium Chloride (Vancomycin Inj/ NS 250 ml Inj) 250 ml @ 250 mls/hr ONCE ONCE IV Last administered on 11/10/16 03:19; Start 11/10/16 at 03 :00; Stop 11/10/16 at 03:59; Status DC Alprazolam (Xanax) 1 mg QID PRN PO ANXIETY Last administered on 11/12/16 08:15 ; Start 11/10/16 at 04:30 Amitriptyline HCl (Elavil) 50 mg HS PO Last administered on 11/11/16 22:49; Start 11/10/16 at 21:00 Amphetamine/ Dextroamphetamine (Adderall) 20 mg DAILY PO ; Start 11/10/16 at 09: 00 Furosemide (Lasix) 40 mg DAILY PO Last administered on 11/12/16 08:14; Start 11/10/16 at 09:00 Gabapentin (Neurontin) 900 mg QID PO Last administered on 11/12/16 08:14; Start 11/10/16 at 09:00 Acetaminophen/ Hydrocodone Bitart ([place] 10-325 Mg) 1 tab Q6H PRN PO PAIN Last administered on 11/12/16 08:16; Start 11/10/16 at 04:30 Paroxetine HCl (Paxil) 20 mg DAILY PO Last administered on 11/12/16 08:15; Start 11/10/16 at 09:00 Tizanidine HCl (Zanaflex) 4 mg BID PO Last administered on 11/12/16 08:15; Start 11/10/16 at 09:00 Pantoprazole Sodium (Protonix) 40 mg DAILY PO Last administered on 11/12/16 08 :15; Start 11/10/16 at 09:00 Trazodone HCl (Desyrel) 150 mg HS PO Last administered on 11/11/16 22:49; Start 11/10/16 at 21:00 Enoxaparin Sodium 40 mg 40 mg Q24H SQ Last administered on 11/12/16 08:17; Start 11/10/16 at 09:00 Vancomycin HCl/ Sodium Chloride (Vancomycin Inj/ NS 500 ml Inj) 515 ml @ 250 mls/hr Q8H IV Last administered on 11/11/16 04:05; Start 11/10/16 at 12:00; Status Hold Miscellaneous Information SPECIFIC LAB TO BE DRAWN:VANCOMYCIN TROUGH DATE TO... ONCE ONCE .XX Last administered on 11/11/16 03:45; Start 11/11/16 at 03:45; Stop 11/11/16 at 03:46; Status DC Zolpidem Tartrate (Ambien) 10 mg HS PRN PO INSOMNIA; Start 11/11/16 at 01:15 Zolpidem Tartrate (Ambien) 10 mg ONCE ONCE PO Last administered on 11/11/16 01:44; Start 11/11/16 at 01:15; Stop 11/11/16 at 01:16; Status DC Potassium Chloride (KCl) 10 meq ONCE ONCE PO Last administered on 11/11/16 16 :28; Start 11/11/16 at 13:00; Stop 11/11/16 at 13:01; Status DC A/P Assessment and Plan A/P Sepsis with sacral decubiti - tachycardia, leukocytosis with neutrophilia (WBC 11.4), lactic acidosis ( lactic acid 3) - Antibiotics: IV Zosyn and Vancomycin - blood cultures negative and wound culture with MRSA and strep. -ID following. Sacral decubitus ulcer - wound care evaluation appreciated. - consulted ID - continue pain control DVT prophylaxis - Lovenox 40 mg subq q24h Souleymane Lew MD Nov 12, 2016 10:09
[2016-11-12 12:00] VITALS: BP 104/58; PULSE 91; RESP 20; TEMP 98; O2SAT 96
[2016-11-12] MEDS ORDERED: ALUMINUM/MAGNESIUM/SIMETH 30 ML CUP PO ONE (23:15)
[2016-11-12] MEDS: traZODone HCL 50 MG TAB PO SCH (23:50)
[2016-11-12] MEDS: AMITRIPTYLINE HCL 50 MG TAB PO SCH (23:50)
[2016-11-12] MEDS: ZOLPIDEM TARTRATE 10 MG TAB PO PRN (23:51)
[2016-11-13 01:47] VITALS: BP 138/76; PULSE 97; RESP 18; TEMP 99.4; O2SAT 100
[2016-11-13] MEDS: PIPERACIL-TAZO 4.5 GM PREMIX 100 ML IV SCH ×2 (02:11→09:51)
[2016-11-13 04:09] VITALS: PULSE 94
[2016-11-13] MEDS: ACETAMINOPHEN/HYDROcodone 325 MG/10 MG TAB PO PRN ×4 (04:32→23:24)
[2016-11-13 08:54] VITALS: BP 127/78; PULSE 94; RESP 18; TEMP 98.1; O2SAT 95
[2016-11-13] MEDS: SODIUM CHLORIDE 0.9% FLUSH 10 ML FLUSH IV FLUSH SCH ×2 (09:00→21:00)
--- NOTE | 2016-11-13 09:03 | HHI.PR ---
Subjective Remarks resting comfortably with no distress. pain is controlled. no fever. no new complaints. Objective Vitals Vital Signs Date Time Temp Pulse Resp B/P Pulse Ox O2 Delivery O2 Flow Rate FiO2 11/13/16 04:09 94 11/13/16 01:47 99.4 97 18 138/76 100 11/12/16 15:55 18 11/12/16 12:00 98.0 91 20 104/58 96 I/O 11/12/16 11/12/16 11/12/16 11/13/16 11/13/16 11/13/16 07:00 15:00 23:00 07:00 15:00 23:00 Intake Total 520 ml 2800 ml Output Total 1900 ml 1500 ml 1000 ml Balance -1380 ml 1300 ml -1000 ml Intake Oral 120 ml 2800 ml IV Total 400 ml Output Urine Total 1900 ml 1500 ml 1000 ml Result Diagram: 11/12/16 0733 11/11/16 0920 Imaging Last Impressions Chest X-Ray 11/10/16 0049 Signed Impressions: Service Date/Time: November 01:09 - CONCLUSION: No acute disease. Dorian Bernardo MD Objective Remarks GENERAL: This is a well-nourished, well-developed patient, in no apparent distress. CARDIOVASCULAR: Regular rate and regular rhythm without murmurs, gallops, or rubs. RESPIRATORY: Clear to auscultation. Breath sounds equal bilaterally. No wheezes , rales, or rhonchi. GASTROINTESTINAL: Abdomen soft, non-tender, nondistended. colostomy in place. Normal, active bowel sounds MUSCULOSKELETAL: Extremities without clubbing, cyanosis, or edema. NEURO: awake and alert skin; sacral decubiti noted with wound vac in place. Medications and IVs Current Medications Acetaminophen 650 mg 650 mg ONCE ONCE PO Last administered on 11/10/16 01:20 ; Start 11/10/16 at 01:00; Stop 11/10/16 at 01:01; Status DC Sodium Chloride 1,000 ml @ 1,000 mls/hr Q1H ONCE IV Last administered on 01:21; Start 11/10/16 at 00:49; Stop 11/10/16 at 01:48; Status DC Sodium Chloride 800 ml @ 1,000 mls/hr Q48M ONCE IV Last administered on 01:22; Start 11/10/16 at 00:49; Stop 11/10/16 at 01:36; Status DC Vancomycin HCl 1000 mg/Sodium Chloride 250 ml @ 250 mls/hr ONCE ONCE IV Last administered on 11/10/16 01:26; Start 11/10/16 at 01:00; Stop 11/10/16 at 01:59 ; Status DC Piperacillin Sod/ Tazobactam Sod (Zosyn 4.5 Gm Premix) 100 ml @ 200 mls/hr ONCE ONCE IV Last administered on 11/10/16 01:26; Start 11/10/16 at 01:00; Stop 11/10/16 at 01:29; Status DC Morphine Sulfate (Morphine Inj) 4 mg ONCE ONCE IV PUSH Last administered on 01:20; Start 11/10/16 at 01:00; Stop 11/10/16 at 01:01; Status DC Hydromorphone HCl (Dilaudid Pf Inj) 0.5 mg ONCE ONCE IV PUSH Last administered on 11/10/16 02:21; Start 11/10/16 at 02:15; Stop 11/10/16 at 02:16 ; Status DC Ketorolac Tromethamine (Toradol Inj) 30 mg ONCE ONCE IV PUSH Last administered on 11/10/16 02:35; Start 11/10/16 at 02:15; Stop 11/10/16 at 02:16 ; Status DC Sodium Chloride (NS Flush) 2 ml UNSCH PRN IV FLUSH FLUSH AFTER USING IV ACCESS ; Start 11/10/16 at 02:30 Sodium Chloride (NS Flush) 2 ml BID IV FLUSH Last administered on 11/12/16 23: 50; Start 11/10/16 at 09:00 Naloxone HCl 0.4 mg 0.4 mg UNSCH PRN IV SEE LABEL COMMENTS; Start 11/10/16 at 02:30 Pharmacy Profile Note 0 ml @ 0 mls/hr UNSCH OTHER ; Start 11/10/16 at 02:30 Piperacillin Sod/ Tazobactam Sod 100 ml @ 200 mls/hr Q6H IV Last administered on 11/13/16 02:11; Start 11/10/16 at 08:00 Vancomycin HCl/ Sodium Chloride (Vancomycin Inj/ NS 250 ml Inj) 250 ml @ 250 mls/hr ONCE ONCE IV Last administered on 11/10/16 03:19; Start 11/10/16 at 03 :00; Stop 11/10/16 at 03:59; Status DC Alprazolam (Xanax) 1 mg QID PRN PO ANXIETY Last administered on 11/12/16 23:51 ; Start 11/10/16 at 04:30 Amitriptyline HCl (Elavil) 50 mg HS PO Last administered on 11/12/16 23:50; Start 11/10/16 at 21:00 Amphetamine/ Dextroamphetamine (Adderall) 20 mg DAILY PO ; Start 11/10/16 at 09: 00; Stop 11/12/16 at 23:09; Status DC Furosemide (Lasix) 40 mg DAILY PO Last administered on 11/12/16 08:14; Start 11/10/16 at 09:00 Gabapentin (Neurontin) 900 mg QID PO Last administered on 11/12/16 23:50; Start 11/10/16 at 09:00 Acetaminophen/ Hydrocodone Bitart ([place] 10-325 Mg) 1 tab Q6H PRN PO PAIN Last administered on 11/13/16 04:32; Start 11/10/16 at 04:30 Paroxetine HCl (Paxil) 20 mg DAILY PO Last administered on 11/12/16 08:15; Start 11/10/16 at 09:00 Tizanidine HCl (Zanaflex) 4 mg BID PO Last administered on 11/12/16 23:50; Start 11/10/16 at 09:00 Pantoprazole Sodium (Protonix) 40 mg DAILY PO Last administered on 11/12/16 08 :15; Start 11/10/16 at 09:00 Trazodone HCl (Desyrel) 150 mg HS PO Last administered on 11/12/16 23:50; Start 11/10/16 at 21:00 Enoxaparin Sodium 40 mg 40 mg Q24H SQ Last administered on 11/12/16 08:17; Start 11/10/16 at 09:00 Vancomycin HCl/ Sodium Chloride (Vancomycin Inj/ NS 500 ml Inj) 515 ml @ 250 mls/hr Q8H IV Last administered on 11/11/16 04:05; Start 11/10/16 at 12:00; Stop 11/12/16 at 10:31; Status DC Miscellaneous Information SPECIFIC LAB TO BE DRAWN:VANCOMYCIN TROUGH DATE TO... ONCE ONCE .XX Last administered on 11/11/16 03:45; Start 11/11/16 at 03:45; Stop 11/11/16 at 03:46; Status DC Zolpidem Tartrate (Ambien) 10 mg HS PRN PO INSOMNIA Last administered on 23:51; Start 11/11/16 at 01:15 Zolpidem Tartrate (Ambien) 10 mg ONCE ONCE PO Last administered on 11/11/16 01:44; Start 11/11/16 at 01:15; Stop 11/11/16 at 01:16; Status DC Potassium Chloride (KCl) 10 meq ONCE ONCE PO Last administered on 11/11/16 16 :28; Start 11/11/16 at 13:00; Stop 11/11/16 at 13:01; Status DC Al Hydrox/Mg Hydrox/Simethicone (Mag-Al Plus Susp Liq) 30 ml ONCE ONCE PO Last administered on 11/12/16 23:23; Start 11/12/16 at 23:15; Stop 11/12/16 at 23:16; Status DC A/P Assessment and Plan A/P Sepsis with sacral decubiti - Antibiotics: IV Zosyn and Vancomycin - blood cultures negative and wound culture with MRSA and strep. -ID following. Sacral decubitus ulcer - wound care evaluation appreciated. - consulted ID - continue pain control DVT prophylaxis - Lovenox 40 mg subq q24h Discharge Planning when cleared by ID. Souleymane Lew MD Nov 13, 2016 09:02
[2016-11-13] MEDS: PANTOPRAZOLE SOD 40 MG DELAYED RELEASE TAB PO SCH (09:52)
[2016-11-13] MEDS: FUROSEMIDE 40 MG TAB PO SCH (09:52)
[2016-11-13] MEDS: PARoxetine HCL 20 MG TAB PO SCH (09:52)
[2016-11-13] MEDS: ENOXAPARIN SODIUM 40 MG/0.4 ML SYRINGE SQ SCH (09:52)
[2016-11-13] MEDS: GABAPENTIN 300 MG CAP PO SCH ×4 (09:52→23:23)
[2016-11-13] MEDS: ALPRAZolam 0.5 MG TAB PO PRN ×2 (10:06→23:24)
[2016-11-13 12:10] VITALS: BP 111/59; PULSE 88; RESP 18; TEMP 99; O2SAT 93
--- NOTE | 2016-11-13 16:17 | HHI.IDPN ---
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 Vital Signs Date Time Temp Pulse Resp B/P Pulse Ox O2 Delivery O2 Flow Rate FiO2 11/13/16 12:10 99.0 88 18 111/59 93 11/13/16 08:54 98.1 94 18 127/78 95 11/13/16 04:09 94 11/13/16 01:47 99.4 97 18 138/76 100 11/12/16 11/12/16 11/13/16 15:00 23:00 07:00 Intake Total 2800 ml Output Total 1500 ml 1000 ml Balance 1300 ml -1000 ml Intake Oral 2800 ml Output Urine Total 1500 ml 1000 ml . Laboratory Tests Test 11/12/16 07:33 White Blood Count 9.5 TH/MM3 Red Blood Count 4.66 MIL/MM3 Hemoglobin 10.7 GM/DL Hematocrit 33.7 % Mean Corpuscular Volume 72.2 FL Mean Corpuscular Hemoglobin 23.0 PG Mean Corpuscular Hemoglobin 31.8 % Concent Red Cell Distribution Width 17.7 % Platelet Count 368 TH/MM3 Mean Platelet Volume 6.4 FL Neutrophils (%) (Auto) 78.3 % Lymphocytes (%) (Auto) 12.9 % Monocytes (%) (Auto) 5.4 % Eosinophils (%) (Auto) 2.6 % Basophils (%) (Auto) 0.8 % Neutrophils # (Auto) 7.4 TH/MM3 Lymphocytes # (Auto) 1.2 TH/MM3 Monocytes # (Auto) 0.5 TH/MM3 Eosinophils # (Auto) 0.2 TH/MM3 Basophils # (Auto) 0.1 TH/MM3 CBC Comment DIFF FINAL Differential Comment Laboratory Tests Test 11/13/16 12:58 Creatinine 2.03 MG/DL Estimat Glomerular Filtration 36 ML/MIN Rate Imaging Last Impressions Chest X-Ray 11/10/16 0049 Signed Impressions: Service Date/Time: November 01:09 - CONCLUSION: No acute disease. Dorian Bernardo MD Physical Exam CONSTITUTIONAL/GENERAL: This is an adequately nourished patient, in no apparent distress. TUBES/LINES/DRAINS: SKIN: No jaundice, rashes, or lesions. . Skin temperature appropriate. Not diaphoretic. STATUS LOCALIS L ischial wound with VAC in place (just placed) with serosanfg d/c, no odor L buttock ulcer with 50% alatorre necrotic eschar EYES: Pupils equal and round and reactive. Extraocular motions intact. No scleral icterus. No injection or drainage. Fundi not examined. ENT: Hearing grossly normal. CARDIOVASCULAR: Regular rate and rhythm without murmurs, gallops, or rubs. No JVD. Peripheral pulses symmetric. RESPIRATORY/CHEST: Symmetric, unlabored respirations. Clear to auscultation. GASTROINTESTINAL: Abdomen soft, non-tender, nondistended. COlostomy in place LLQ GENITOURINARY: Without palpable bladder distension. Wise catheter in place with clear yellow urine MUSCULOSKELETAL: Extremities without clubbing, cyanosis, or edema. NEUROLOGICAL: Awake and alert. Motor with stable paraplegia; UE within normal limits. Follows commands with BUE. Clear speech PSYCHIATRIC: No obvious anxiety/depression. no apparent hallucinations or other psychotic thought process. Assessment & Plan Remarks Assessment and Plan Assessment and Plan Sepsis on presentation (fever, lactic aicdosis,leukocytosis) thought o be from decubitus Chronic L buttock decubitus ulcer, sp recent reconstuction surgery - growing MRSA along with strep Indwelling wise, no e/o UTI New issue: ARF ? vancomycin ? interstital nephritis dc vanco, switch t daptomycin dc zosyn monito clinically fu WBC monitor creatinine, consult renal if worse MRI pelvis (preferably with contrast, will see if creatininte is better to [place]) Discussed Condition With pharmacist Anisa Low MD Nov 13, 2016 16:17
[2016-11-13 16:21] VITALS: BP 115/80; PULSE 90; RESP 18; TEMP 98.1; O2SAT 97
--- NOTE | 2016-11-13 17:44 | HHI.PR ---
Addendum To [facility] Progress Not Reason for addendum: Additonal documentation (result of BUN/Cr was noted. Vanco was discontinued- will hold lasix and start IV fluid with the impression of acute kidney injury. BMP will be repeated tomorrow and will cosnider nephrology evaluation if the renal function gets worse. ) Souleymane Lew MD Nov 13, 2016 17:44
[2016-11-13] MEDS ORDERED: DAPTOmycin INJ 600 MG in SODIUM CHLORIDE 0.9% INJ 100 ML IV SCH (18:00)
[2016-11-13] MEDS: SODIUM CHLOR 0.9% 1000 ML INJ 1,000 ML IV SCH (18:13)
[2016-11-13 19:30] VITALS: BP 140/74; PULSE 85; RESP 18; TEMP 98.3; O2SAT 99
[2016-11-13] MEDS: traZODone HCL 50 MG TAB PO SCH (23:24)
[2016-11-13] MEDS: AMITRIPTYLINE HCL 50 MG TAB PO SCH (23:24)
[2016-11-13] MEDS: ZOLPIDEM TARTRATE 10 MG TAB PO PRN (23:24)
[2016-11-14] VITALS: BP 136/72; PULSE 80; RESP 18; TEMP 98.1; O2SAT 99
[2016-11-14 04:00] VITALS: BP 123/57; PULSE 88; RESP 18; TEMP 98.1; O2SAT 94
[2016-11-14] MEDS: SODIUM CHLOR 0.9% 1000 ML INJ 1,000 ML IV SCH ×2 (04:54→15:27)
[2016-11-14] MEDS: ACETAMINOPHEN/HYDROcodone 325 MG/10 MG TAB PO PRN ×2 (04:55→11:33)
[2016-11-14 06:31] VITALS: PULSE 97
[2016-11-14 08:00] VITALS: BP 103/53; PULSE 83; PULSE 88; RESP 12; TEMP 98.6; O2SAT 95
[2016-11-14] MEDS: SODIUM CHLORIDE 0.9% FLUSH 10 ML FLUSH IV FLUSH SCH (09:00)
--- NOTE | 2016-11-14 09:03 | HHI.PR ---
Subjective Remarks resting comfortably with no distress. remains afebrile. no new complaints. Objective Vitals Vital Signs Date Time Temp Pulse Resp B/P Pulse Ox O2 Delivery O2 Flow Rate FiO2 11/14/16 08:00 98.6 88 12 103/53 95 11/14/16 06:31 97 11/14/16 04:00 98.1 88 18 123/57 94 11/14/16 00:00 98.1 80 18 136/72 99 11/13/16 19:30 98.3 85 18 140/74 99 11/13/16 18:19 18 11/13/16 16:21 98.1 90 18 115/80 97 11/13/16 12:10 99.0 88 18 111/59 93 I/O 11/13/16 11/13/16 11/13/16 11/14/16 11/14/16 11/14/16 07:00 15:00 23:00 07:00 15:00 23:00 Output Total 1000 ml 2800 ml 1800 ml Balance -1000 ml -2800 ml -1800 ml Output Urine Total 1000 ml 2800 ml 1800 ml Result Diagram: 11/12/16 0733 11/13/16 1258 Imaging Last Impressions Chest X-Ray 11/10/16 0049 Signed Impressions: Service Date/Time: November 01:09 - CONCLUSION: No acute disease. Dorian Bernardo MD Objective Remarks GENERAL: This is a well-nourished, well-developed patient, in no apparent distress. CARDIOVASCULAR: Regular rate and regular rhythm without murmurs, gallops, or rubs. RESPIRATORY: Clear to auscultation. Breath sounds equal bilaterally. No wheezes , rales, or rhonchi. GASTROINTESTINAL: Abdomen soft, non-tender, nondistended. colostomy in place. Normal, active bowel sounds MUSCULOSKELETAL: Extremities without clubbing, cyanosis, or edema. NEURO: awake and alert skin; sacral decubiti noted with wound vac in place. Medications and IVs Current Medications Acetaminophen 650 mg 650 mg ONCE ONCE PO Last administered on 11/10/16t 01:20 ; Start 11/10/16 at 01:00; Stop 11/10/16 at 01:01; Status DC Sodium Chloride 1,000 ml @ 1,000 mls/hr Q1H ONCE IV Last administered on 01:21; Start 11/10/16 at 00:49; Stop 11/10/16 at 01:48; Status DC Sodium Chloride 800 ml @ 1,000 mls/hr Q48M ONCE IV Last administered on 01:22; Start 11/10/16 at 00:49; Stop 11/10/16 at 01:36; Status DC Vancomycin HCl 1000 mg/Sodium Chloride 250 ml @ 250 mls/hr ONCE ONCE IV Last administered on 11/10/16 01:26; Start 11/10/16 at 01:00; Stop 11/10/16 at 01:59 ; Status DC Piperacillin Sod/ Tazobactam Sod (Zosyn 4.5 Gm Premix) 100 ml @ 200 mls/hr ONCE ONCE IV Last administered on 11/10/16 01:26; Start 11/10/16 at 01:00; Stop 11/10/16 at 01:29; Status DC Morphine Sulfate (Morphine Inj) 4 mg ONCE ONCE IV PUSH Last administered on 01:20; Start 11/10/16 at 01:00; Stop 11/10/16 at 01:01; Status DC Hydromorphone HCl (Dilaudid Pf Inj) 0.5 mg ONCE ONCE IV PUSH Last administered on 11/10/16 02:21; Start 11/10/16 at 02:15; Stop 11/10/16 at 02:16 ; Status DC Ketorolac Tromethamine (Toradol Inj) 30 mg ONCE ONCE IV PUSH Last administered on 11/10/16 02:35; Start 11/10/16 at 02:15; Stop 11/10/16 at 02:16 ; Status DC Sodium Chloride (NS Flush) 2 ml UNSCH PRN IV FLUSH FLUSH AFTER USING IV ACCESS ; Start 11/10/16 at 02:30 Sodium Chloride (NS Flush) 2 ml BID IV FLUSH Last administered on 11/13/16 21: 00; Start 11/10/16 at 09:00 Naloxone HCl 0.4 mg 0.4 mg UNSCH PRN IV SEE LABEL COMMENTS; Start 11/10/16 at 02:30 Pharmacy Profile Note 0 ml @ 0 mls/hr UNSCH OTHER ; Start 11/10/16 at 02:30; Stop 11/13/16 at 16:22; Status DC Piperacillin Sod/ Tazobactam Sod 100 ml @ 200 mls/hr Q6H IV Last administered on 11/13/16 09:51; Start 11/10/16 at 08:00; Stop 11/13/16 at 12:12; Status DC Vancomycin HCl/ Sodium Chloride (Vancomycin Inj/ NS 250 ml Inj) 250 ml @ 250 mls/hr ONCE ONCE IV Last administered on 11/10/16 03:19; Start 11/10/16 at 03 :00; Stop 11/10/16 at 03:59; Status DC Alprazolam (Xanax) 1 mg QID PRN PO ANXIETY Last administered on 11/13/16 23:24 ; Start 11/10/16 at 04:30 Amitriptyline HCl (Elavil) 50 mg HS PO Last administered on 11/13/16 23:24; Start 11/10/16 at 21:00 Amphetamine/ Dextroamphetamine (Adderall) 20 mg DAILY PO ; Start 11/10/16 at 09: 00; Stop 11/12/16 at 23:09; Status DC Furosemide (Lasix) 40 mg DAILY PO Last administered on 11/13/16 09:52; Start 11/10/16 at 09:00; Status Hold Gabapentin (Neurontin) 900 mg QID PO Last administered on 11/13/16 23:23; Start 11/10/16 at 09:00 Acetaminophen/ Hydrocodone Bitart (Lenox 10-325 Mg) 1 tab Q6H PRN PO PAIN Last administered on 11/14/16 04:55; Start 11/10/16 at 04:30 Paroxetine HCl (Paxil) 20 mg DAILY PO Last administered on 11/13/16 09:52; Start 11/10/16 at 09:00 Tizanidine HCl (Zanaflex) 4 mg BID PO Last administered on 11/13/16 23:24; Start 11/10/16 at 09:00 Pantoprazole Sodium (Protonix) 40 mg DAILY PO Last administered on 11/13/16 09 :52; Start 11/10/16 at 09:00 Trazodone HCl (Desyrel) 150 mg HS PO Last administered on 11/13/16 23:24; Start 11/10/16 at 21:00 Enoxaparin Sodium 40 mg 40 mg Q24H SQ Last administered on 11/13/16 09:52; Start 11/10/16 at 09:00 Vancomycin HCl/ Sodium Chloride (Vancomycin Inj/ NS 500 ml Inj) 515 ml @ 250 mls/hr Q8H IV Last administered on 11/11/16 04:05; Start 11/10/16 at 12:00; Stop 11/12/16 at 10:31; Status DC Miscellaneous Information SPECIFIC LAB TO BE DRAWN:VANCOMYCIN TROUGH DATE TO... ONCE ONCE .XX Last administered on 11/11/16 03:45; Start 11/11/16 at 03:45; Stop 11/11/16 at 03:46; Status DC Zolpidem Tartrate (Ambien) 10 mg HS PRN PO INSOMNIA Last administered on 23:24; Start 11/11/16 at 01:15 Zolpidem Tartrate (Ambien) 10 mg ONCE ONCE PO Last administered on 11/11/16 01:44; Start 11/11/16 at 01:15; Stop 11/11/16 at 01:16; Status DC Potassium Chloride (KCl) 10 meq ONCE ONCE PO Last administered on 11/11/16 16 :28; Start 11/11/16 at 13:00; Stop 11/11/16 at 13:01; Status DC Al Hydrox/Mg Hydrox/ Simethicone 30 ml 30 ml ONCE ONCE PO Last administered on 11/12/16 23:23; Start 11/12/16 at 23:15; Stop 11/12/16 at 23:16; Status DC Daptomycin 600 mg/ Sodium Chloride 100 ml @ 200 mls/hr Q24H IV Last administered on 11/13/16 18:10; Start 11/13/16 at 18:00 Sodium Chloride (NS 1000 ml Inj) 1,000 ml @ 100 mls/hr Q10H IV Last administered on 11/14/16 04:54; Start 11/13/16 at 18:00 A/P Assessment and Plan A/P Sepsis with sacral decubiti - Antibiotics: started on Daptomycin - blood cultures negative and wound culture with MRSA and strep. -ID following. Sacral decubitus ulcer - wound care evaluation appreciated. - consulted ID - continue pain control acute kidney injury Vancomycin was stopped. started on IV fluid will monitor I/O will monitor renal function closely- will consider nephrology evaluation if no improvement. DVT prophylaxis - Lovenox 40 mg subq q24h Discharge Planning when cleared by Souleymane Molina MD Nov 14, 2016 09:03
[2016-11-14] MEDS: GABAPENTIN 300 MG CAP PO SCH ×2 (09:29→14:32)
[2016-11-14] MEDS: PARoxetine HCL 20 MG TAB PO SCH (09:29)
[2016-11-14] MEDS: PANTOPRAZOLE SOD 40 MG DELAYED RELEASE TAB PO SCH (09:29)
[2016-11-14] MEDS: ENOXAPARIN SODIUM 40 MG/0.4 ML SYRINGE SQ SCH (09:29)
[2016-11-14] MEDS: ALPRAZolam 0.5 MG TAB PO PRN (11:34)
[2016-11-14 12:00] VITALS: BP 118/66; PULSE 86; RESP 18; TEMP 98.4; O2SAT 98
--- NOTE | 2016-11-14 12:01 | HHI.FF ---
Face to Face Verification Diagnosis: (1) Sacral decubitus ulcer Home Health Nursing Order: Wound care and dressing changes I have seen patient Dima Daniels Jr Bertrand on 11/14/16. My clinical findings support the need for the requested home health care services because: Ltd mobility - disease progression I certify that my clinical findings support that this patient is homebound because: [id number] bed/chair Souleymane Lew MD Nov 14, 2016 12:01
--- NOTE | 2016-11-14 12:04 | HHI.FF ---
Face to Face Verification Diagnosis: (1) Pressure ulcer Home Health Nursing Order: Wound care and dressing changes Instructions: 1. Left buttock UNSTAGEABLE: Cleanse daily with Normal Saline. Apply Santyl with light packing of 4x4 gauze and secure with dry cover. 2. Wound VAC to left ischial STAGE 4: Change M-W-F settings @ 125mmHg low continuous suction . I have seen patient Dima Daniels Jr Bertrand on 11/14/16. My clinical findings support the need for the requested home health care services because: Ltd mobility - disease progression I certify that my clinical findings support that this patient is homebound because: [id number] bed/chair Souleymane Lew MD Nov 14, 2016 12:04
[2016-11-14] MEDS ORDERED: COLLAGENASE OINT 30 GM TUBE TOPICAL SCH (12:15)
[2016-11-14 12:33] LABS: BICARBONATE 29.2 MEQ/L (21.0-32.0); POTASSIUM 3.3 MEQ/L (3.5-5.1)
--- NOTE | 2016-11-14 13:18 | PD.WCN.NOT ---
Wound Consult Description: Left ischium Communicated with: AUBREY Starr Dr Recommendation: 1. Left buttock UNSTAGEABLE: Cleanse daily with Normal Saline. Apply Santyl with light packing of 4x4 gauze and secure with dry cover. 2. 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 Dressing change was done on left buttock without Santyl, Dr Lew contacted for orders. Neg Pressure Wound Therapy Wound Location Wound Location: Left ischium Wound Description Length: Width: Wound bed appearance: ~60% pink bumpy moist tissue ~40% red vascular granulation tissue Open wound margins Blanchable erythema noted to periwound Settings Suction: 125 mmHg, Continuous Intensity: Low Other Information: Bridged Foam type: Black Number of pieces: 1 Additonal Information Patient seen on [address] for wound VAC change to left ischium. Patient positioned himself to his right side for assessment and dressing change. 1 piece black foam removed to reveal a stage IV pressure injury to left ischium that appears improved now with granulating vascular tissue and open wound margins. Wound was cleansed with wound cleanser and gauze. Culture obtained and given to AUBREY Starr as requested by patient that states I.D. asked for a culture with the next VAC dressing change. Periwound was skin prepped from wound to left upper leg with cavilon spray and protected with VAC drape. 1 piece of black foam was cut into a coil fashion and placed into wound bed and bridged up to left hip/thigh where trac pad was placed. Wound VAC settings @125mmHg low continuous suction working properly without leaks. Patient remained on his right side after dressing change stating that it was comfortable. Next dressing change scheduled for Monday. Left buttock wound dressing of gauze was removed to reveal an unstageable wound that was recommended to have santyl daily on last assessment. Dr Lew was contacted again today for the medication to be ordered. Wound was cleansed with wound cleanser and a new gauze dressing was placed until santyl could be obtained from pharmacy. AUBREY Starr was notified of this. Kasey Barba [facility] Nov 14, 2016 13:18
== END 2016-11-14 16:37 | disposition left against medical advice (07) | DRG 871 ==
LOC: NEPE 00:29 → NEDA 02:24 → NEDH 06:38 → N05B 11:06
PROVIDERS: ADMIT Internal Medicine; ATTEND Internal Medicine
DX: A41.9 Sepsis, unspecified organism (principal); L89.154 Pressure ulcer of sacral region, stage 4; N17.9 Acute kidney failure, unspecified; E87.2 Acidosis; L89.329 Pressure ulcer of left buttock, unspecified stage; G82.20 Paraplegia, unspecified; R00.0 Tachycardia, unspecified; K21.9 Gastro-esophageal reflux disease without esophagitis; K59.00 Constipation, unspecified; F17.210 Nicotine dependence, cigarettes, uncomplicated; Z86.14 Personal history of Methicillin resistant Staphylococcus aureus infection; Z93.3 Colostomy status; Z98.1 Arthrodesis status; R50.9 Fever, unspecified; F41.9 Anxiety disorder, unspecified; B95.62 Methicillin resistant Staphylococcus aureus infection as the cause of diseases classified elsewhere
CPT/HCPCS: 71010; 76937; 80048; 80053; 80202; 81001; 82565; 83605; 85025; 86403; 87040; 87070; 87147; 87186; 87205; 96365; 96368; 96375; J0878; J1170; J1650; J1885; J2270; J2543; J3370; J7030; J7040; J7050

== ENCOUNTER 2017-01-21 15:47 | Inpatient (IN) | payer MEDICARE, MEDICAID ==
[~2017-01-21] VITALS: Ht 182.9 cm; Wt 91.3 kg
[~2017-01-21 15:47] MED LIST changes: -CRAN600T PO; -MULT1TAB84 PO; +NITR1CAP37 PO; +PARO20TA2 PO; -PAXI20TA PO; -TRAZ150T75 PO; +TRAZ1TAB45 PO
[2017-01-21 15:53] VITALS: BP_SYST 139; PULSE 122; RESP 20; TEMP 100; O2SAT 97
[2017-01-21] MEDS ORDERED: PERC10TA27 PO (16:18)
[2017-01-21] MEDS ORDERED: MINO100 PO (16:18)
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
[2017-01-21] MEDS: SODIUM CHLOR 0.9% 1000 ML INJ 1,000 ML IV SCH (17:14)
[2017-01-21] MEDS ORDERED: HYDROmorphone HCL PF 1 MG/ML VIAL IV PUSH ONE (17:15)
[2017-01-21] MEDS ORDERED: ONDANSETRON HCL 4 MG/2 ML VIAL IV PUSH ONE (17:15)
[2017-01-21] MEDS ORDERED: DAPTOmycin INJ 600 MG in SODIUM CHLORIDE 0.9% INJ 100 ML IV ONE (17:15)
[2017-01-21 17:20] LABS: AUTOMATED NEUTROPHIL # 10.1 TH/MM3 (1.8-7.7); BASOPHIL # 0.3 TH/MM3 (0-0.2); BASOPHIL % 2.6 % (0.0-2.0); EOSINOPHIL # 0.1 TH/MM3 (0-0.4); EOSINOPHIL % 0.7 % (0.0-4.0); HEMOGLOBIN 10.7 GM/DL (13.0-17.0); LYMPH % 12.2 % (9.0-44.0); LYMPHOCYTE # 1.5 TH/MM3 (1.0-4.8); MEAN CORPUSCULAR HEMOGLOBIN 22.3 PG (27.0-34.0); MEAN CORPUSCULAR HGB CONC 31.5 % (32.0-36.0); MEAN PLATELET VOLUME 6.1 FL (7.0-11.0); MONOCYTE # 0.6 TH/MM3 (0-0.9); NEUT % 79.5 % (16.0-70.0); PLATELET COUNT 518 TH/MM3 (150-450); RED BLOOD COUNT 4.79 MIL/MM3 (4.50-5.90); RED CELL DISTRIBUTION WIDTH 16.5 % (11.6-17.2); WHITE BLOOD COUNT 12.6 TH/MM3 (4.0-11.0)
[2017-01-21 17:26] VITALS: BP 93/70; PULSE 115; RESP 16; TEMP 101.5; O2SAT 97
[2017-01-21 17:28] VITALS: RESP 16; O2SAT 97
[2017-01-21 17:31] LABS: CHLORIDE 93 MEQ/L (98-107); SODIUM (NA) 132 MEQ/L (136-145)
[2017-01-21 17:33] VITALS: BP 109/65; PULSE 115; RESP 18; TEMP 101.5; O2SAT 100
[2017-01-21 17:34] LABS: ALBUMIN 2.5 GM/DL (3.4-5.0); BICARBONATE 33.1 MEQ/L (21.0-32.0); BLOOD UREA NITROGEN 6 MG/DL (7-18); CALCIUM 8.5 MG/DL (8.5-10.1); GLUCOSE,RANDOM 84 MG/DL (74-106)
[2017-01-21 17:37] VITALS: BP 109/57; PULSE 115; RESP 18; O2SAT 100
[2017-01-21 17:37] LABS: ALT (GPT) 30 U/L (12-78); AST (GOT) 19 U/L (15-37); CREATININE 0.75 MG/DL (0.60-1.30); GLOMERULAR FILTRATION RATE 115 ML/MIN (>89); PROTHROMBIN TIME - PATIENT 11.5 SEC (9.8-11.6)
[2017-01-21 17:39] LABS: TOTAL BILIRUBIN ADULT 0.2 MG/DL (0.2-1.0); TOTAL PROTEIN 7.8 GM/DL (6.4-8.2)
[2017-01-21 17:40] LABS: ALKALINE PHOSPHATASE 287 U/L (45-117)
[2017-01-21 18:19] LABS: STOMATOCYTES 1+ (NORMAL)
[2017-01-21] MEDS ORDERED: SODIUM CHLORIDE 0.9% FLUSH 10 ML FLUSH IV FLUSH PRN (19:00)
[2017-01-21] MEDS ORDERED: NALOXONE HCL 0.4 MG/ML AMP IV PUSH PRN (19:00)
[2017-01-21] MEDS ORDERED: ONDANSETRON HCL 4 MG/2 ML VIAL IVP PRN (19:00)
[2017-01-21] MEDS ORDERED: ACETAMINOPHEN 325 MG TAB PO PRN (19:00)
[2017-01-21 21:00] VITALS: BP 112/56; PULSE 113; RESP 20; TEMP 100.7; O2SAT 94
[2017-01-21] MEDS: HEPARIN SODIUM - SQ 10,000 UNITS/ML VIAL SQ SCH (22:38)
[2017-01-21] MEDS: SODIUM CHLORIDE 0.9% FLUSH 10 ML FLUSH IV FLUSH SCH (22:38)
[2017-01-21] MEDS: GABAPENTIN 400 MG CAP PO SCH (22:39)
[2017-01-21] MEDS: AMITRIPTYLINE HCL 50 MG TAB PO SCH (22:39)
[2017-01-21] MEDS: ALPRAZolam 0.5 MG TAB PO PRN (22:39)
[2017-01-21] MEDS: oxyCODONE/ACETAMINOPHEN 10 MG/325 MG TAB PO PRN (22:40)
[2017-01-21] MEDS: ZOLPIDEM TARTRATE 10 MG TAB PO PRN (22:51)
[2017-01-22 01:19] VITALS: BP 107/61; PULSE 106; RESP 20; TEMP 98.2; O2SAT 96
[2017-01-22] MEDS: SODIUM CHLOR 0.9% 1000 ML INJ 1,000 ML IV SCH ×3 (03:12→23:14)
[2017-01-22 04:00] VITALS: BP 112/65; PULSE 102; RESP 18; TEMP 98.8; O2SAT 97
[2017-01-22] MEDS: HEPARIN SODIUM - SQ 10,000 UNITS/ML VIAL SQ SCH (06:00)
[2017-01-22] MEDS: ALPRAZolam 0.5 MG TAB PO PRN ×2 (06:22→23:14)
[2017-01-22] MEDS: oxyCODONE/ACETAMINOPHEN 10 MG/325 MG TAB PO PRN ×4 (06:22→23:15)
[2017-01-22 08:00] VITALS: BP 104/65; PULSE 116; RESP 16; TEMP 97.1; O2SAT 97
[2017-01-22] MEDS ORDERED: DAPTOmycin INJ 600 MG in SODIUM CHLORIDE 0.9% INJ 100 ML IV SCH (08:00)
[2017-01-22 08:28] LABS: AUTOMATED NEUTROPHIL # 5.4 TH/MM3 (1.8-7.7); BASOPHIL # 0.1 TH/MM3 (0-0.2); BASOPHIL % 0.8 % (0.0-2.0); EOSINOPHIL # 0.2 TH/MM3 (0-0.4); EOSINOPHIL % 2.5 % (0.0-4.0); HEMATOCRIT 31.5 % (39.0-51.0); HEMOGLOBIN 9.8 GM/DL (13.0-17.0); LYMPH % 22.2 % (9.0-44.0); LYMPHOCYTE # 1.7 TH/MM3 (1.0-4.8); MEAN CELL VOLUME 72.8 FL (80.0-100.0); MEAN CORPUSCULAR HEMOGLOBIN 22.5 PG (27.0-34.0); MEAN PLATELET VOLUME 6.6 FL (7.0-11.0); MONO % 5.7 % (0.0-8.0); MONOCYTE # 0.4 TH/MM3 (0-0.9); NEUT % 68.8 % (16.0-70.0); PLATELET COUNT 454 TH/MM3 (150-450); RED BLOOD COUNT 4.33 MIL/MM3 (4.50-5.90); RED CELL DISTRIBUTION WIDTH 16.7 % (11.6-17.2); WHITE BLOOD COUNT 7.8 TH/MM3 (4.0-11.0)
[2017-01-22] MEDS: GABAPENTIN 400 MG CAP PO SCH ×4 (08:37→23:15)
[2017-01-22] MEDS: DEXTROAMPHETAMINE/AMPHETAMINE 30 MG TAB PO SCH (08:37)
[2017-01-22] MEDS: FUROSEMIDE 40 MG TAB PO SCH (08:37)
[2017-01-22] MEDS: PARoxetine HCL 20 MG TAB PO SCH (08:37)
[2017-01-22] MEDS: SODIUM CHLORIDE 0.9% FLUSH 10 ML FLUSH IV FLUSH SCH ×2 (08:38→23:16)
[2017-01-22 09:00] LABS: BICARBONATE 32.7 MEQ/L (21.0-32.0); CALCIUM 8.4 MG/DL (8.5-10.1); CREATININE 0.5 MG/DL (0.60-1.30)
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
--- NOTE | 2017-01-22 09:56 | RADRPT ---
EXAM DATE/TIME: 01/22/2017 09:23 [place] COMPARISON: CHEST SINGLE AP, November 10, 2016, 1:09. INDICATIONS : Cough, short of breath MEDICAL HISTORY : None. SURGICAL HISTORY : spinal ENCOUNTER: Subsequent ACUITY: 2 days PAIN SCORE: 0/10 LOCATION: Bilateral chest FINDINGS: The heart size is normal. There is linear density at the lower lungs bilaterally. There is elevation of the lateral left hemidiaphragm. Some degree of subpulmonic fluid may be present. Stabilization venkat s are seen in the lower thoracic and upper lumbar spine. There are old healed fractures. CONCLUSION: 1. Bibasilar areas of suspected atelectasis or consolidation. These appear worse. 2. Increased density at the lateral left base with elevation of the apparent lateral left hemidiaphra gm which can be seen with a subpulmonic effusion. Shmuel Jason MD on January 22, 2017 at 9:53 Board Certified Radiologist. This report was verified electronically.
[2017-01-22] MEDS: ENOXAPARIN SODIUM 40 MG/0.4 ML SYRINGE SQ SCH (10:00)
[2017-01-22 10:17] LABS: BILIRUBIN, URINE NEG (NEG); GLUCOSE,URINE NEG (NEG); KETONE, URINE NEG (NEG); NITRITE,URINE NEG (NEG); PH, URINE 8.5 (5.0-8.5); URINE LEUKOCYTE ESTERASE MOD (NEG)
[2017-01-22 10:21] LABS: BLOOD, URINE TRACE (NEG)
[2017-01-22 10:22] LABS: URINE COLOR YELLOW (YELLW/STRAW)
[2017-01-22 10:24] LABS: BACTERIA, URINE MOD /hpf; RBC, URINE 0-3 /hpf (0-3)
[2017-01-22 12:00] VITALS: BP 106/64; PULSE 82; RESP 16; TEMP 97; O2SAT 97
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
[2017-01-22 16:00] VITALS: BP 110/66; PULSE 82; RESP 16; TEMP 97; O2SAT 97
[2017-01-22] MEDS: CIPROFLOXACIN/DEXT 400 MG/200 ML IV SCH (17:00)
[2017-01-22] MEDS: DAPTOmycin INJ 600 MG in SODIUM CHLORIDE 0.9% INJ 100 ML IV SCH (18:19)
[2017-01-22 20:55] VITALS: BP 127/70; PULSE 96; RESP 16; TEMP 98.9; O2SAT 96
[2017-01-22] MEDS: ZOLPIDEM TARTRATE 10 MG TAB PO PRN (23:14)
[2017-01-22] MEDS: AMITRIPTYLINE HCL 50 MG TAB PO SCH (23:14)
[2017-01-23 00:39] VITALS: BP 114/65; PULSE 92; RESP 20; TEMP 98.2; O2SAT 97
[2017-01-23] MEDS: CIPROFLOXACIN/DEXT 400 MG/200 ML IV SCH ×2 (05:23→16:48)
[2017-01-23] MEDS: oxyCODONE/ACETAMINOPHEN 10 MG/325 MG TAB PO PRN ×4 (05:33→23:36)
[2017-01-23 08:16] VITALS: BP 101/59; PULSE 84; RESP 15; TEMP 97.1; O2SAT 95
[2017-01-23] MEDS: GABAPENTIN 400 MG CAP PO SCH ×4 (08:49→20:23)
[2017-01-23] MEDS: SODIUM CHLORIDE 0.9% FLUSH 10 ML FLUSH IV FLUSH SCH ×2 (08:50→20:23)
[2017-01-23] MEDS: FUROSEMIDE 40 MG TAB PO SCH (08:50)
[2017-01-23] MEDS: DEXTROAMPHETAMINE/AMPHETAMINE 30 MG TAB PO SCH (08:50)
[2017-01-23] MEDS: PARoxetine HCL 20 MG TAB PO SCH (08:50)
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
[2017-01-23] MEDS: SODIUM CHLOR 0.9% 1000 ML INJ 1,000 ML IV SCH ×2 (09:36→18:45)
--- NOTE | 2017-01-23 10:50 | HHI.PR ---
Subjective Remarks patient seen and evaluated today in follow-up for decubitus. Cultures positive for MRSA again. Patient continues on daptomycin and Cipro has been added per ID team. Overall patient feels well and has no new complaints Objective Vitals Vital Signs Date Time Temp Pulse Resp B/P (MAP) Pulse Ox O2 Delivery O2 Flow Rate FiO2 01/23/17 08:16 97.1 84 15 101/59 (73) 95 01/23/17 06:33 20 01/23/17 04:13 01/23/17 00:39 98.2 92 20 114/65 (81) 97 01/22/17 20:55 98.9 96 16 127/70 (89) 96 01/22/17 16:00 97.0 82 16 110/66 (81) 97 01/22/17 12:00 97.0 82 16 106/64 (78) 97 I/O 01/22/17 01/22/17 01/22/17 01/23/17 01/23/17 01/23/17 07:00 15:00 23:00 07:00 15:00 23:00 Intake Total 1190 ml 710 ml 1260 ml 1099 ml Output Total 2050 ml 2500 ml Balance 1190 ml -1340 ml 1260 ml -1401 ml Intake Oral 960 ml IV Total 1190 ml 710 ml 300 ml 1099 ml Output Urine Total 2050 ml 2500 ml Result Diagram: 01/22/17 0556 01/22/17 0556 Objective Remarks GENERAL: This is a well-nourished, paraplegic male who is otherwise well- developed patient, in no apparent distress. CARDIOVASCULAR: Regular rate and rhythm without murmurs, gallops, or rubs. RESPIRATORY: Clear to auscultation. Breath sounds equal bilaterally. No wheezes , rales, or rhonchi. GASTROINTESTINAL: Hilton, Abdomen soft, non-tender, nondistended. Normal active bowel sounds MUSCULOSKELETAL: Sacral wound with VAC, Extremities without clubbing, cyanosis, or edema. NEURO: Alert & Oriented x4 to person, place, time, situation. Moves her pressure meds without difficulty A/P Problem List: (1) Sepsis ICD Code: A41.9 - Sepsis, unspecified organism Status: Acute Plan: Resolving tachycardia, leukocytosis and temperature Surgical cultures positive for MRSA/Klebsiella, continue with daptomycin (2) Sacral decubitus ulcer ICD Code: L89.159 - Pressure ulcer of sacral region, unspecified stage Status: Acute Plan: MRSA positive again Continue daptomycin for now, patient follows up with the wound care team as outpatient wound care eval for wound VAC management Patient did have some renal abnormalities related to vancomycin Continue daptomycin (3) Neurogenic bladder ICD Code: N31.9 - Neurogenic bladder Status: Acute Plan: Patient with chronic Hilton (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
[2017-01-23] MEDS: ENOXAPARIN SODIUM 40 MG/0.4 ML SYRINGE SQ SCH (11:02)
[2017-01-23 12:00] VITALS: BP 145/65; PULSE 97; RESP 18; TEMP 98.2; O2SAT 95
[2017-01-23] MEDS: HYDROmorphone HCL PF 1 MG/ML VIAL IV PUSH PRN ×2 (15:32→20:24)
--- NOTE | 2017-01-23 16:22 | RADRPT ---
EXAM DATE/TIME: 01/23/2017 14:07 [place] COMPARISON: No previous studies available for comparison. INDICATIONS : Abscess. CONTRAST: 20 cc Omniscan (gadodiamide) IV MEDICAL HISTORY : Methicillin-resistant Staphylococcus aureus. Paraplegia. SURGICAL HISTORY : Fusion, lumbar. Fusion, thoracic. Phelps rods. ENCOUNTER: Initial ACUITY: 1 week PAIN SCORE: 4/10 LOCATION: pelvis TECHNIQUE: Multiplanar, multisequence magnetic resonance imaging of the pelvis was performed. FINDINGS: There is a soft tissue abnormality in the left parasagittal posterior gluteal region with discontinui ty of the skin to the left of the tip of the sacrum and signal abnormality extending to the subcutane ous tissues and into the medial gluteal muscle and surrounding the tip of the sacrum. There is progr essive moderately intense contrast enhancement throughout this area. Enhancing area measures 5.9 x 3 .6 cm. There is also some signal abnormality within the marrow of the tip of the sacrum suggesting a ssociated osteomyelitis. There is a 2nd soft tissue abnormality located lateral to the right inguinal region which does not de monstrate enhancement, but has a central area of T1 prolongation which extends from the skin surface to the anterior surface of the hip joint and there is some mild surrounding T2 prolongation. No foca l enhancement seen. The anterior lesion measures 7.8 x 4.8 cm. There is T2 prolongation in the soft tissues adjacent to the greater trochanter of the right proximal hip with mild progressive enhancement of the thickened tissue. There is a faint central area which demonstrates an T2 prolongation. The appearance of this area is characteristic of greater trochanter bursitis. CONCLUSION: There are 3 soft tissue abnormalities about the pelvis a. Left para-sacral enhancing subcutaneous area extending into the medial gluteal muscle and surroun ding the tip of the sacrum characteristic of a decubitus ulcer with associated osteomyelitis. b. Nonenhancing signal abnormality in the anterior musculature of the proximal thigh extending from skin to anterior hip joint capsule. c. Greater trochanteric bursitis. Syed Tamayo MD on January 23, 2017 at 16:12 Board Certified Radiologist. This report was verified electronically.
[2017-01-23] MEDS ORDERED: GADODIAMIDE PF 287 MG/ML 20 ML VIAL (for RAD MRI) IV PUSH ONE (16:34)
[2017-01-23 16:51] VITALS: BP 116/67; PULSE 93; RESP 15; TEMP 98.1; O2SAT 98
[2017-01-23] MEDS: DAPTOmycin INJ 600 MG in SODIUM CHLORIDE 0.9% INJ 100 ML IV SCH (17:41)
[2017-01-23 20:00] VITALS: BP 136/82; PULSE 92; RESP 18; TEMP 97.8; O2SAT 97
[2017-01-23] MEDS: AMITRIPTYLINE HCL 50 MG TAB PO SCH (20:23)
[2017-01-23] MEDS: ALPRAZolam 0.5 MG TAB PO PRN (23:34)
[2017-01-23] MEDS: ZOLPIDEM TARTRATE 10 MG TAB PO PRN (23:34)
[2017-01-24] VITALS: BP 144/93; PULSE 91; RESP 20; TEMP 98.4; O2SAT 100
[2017-01-24] MEDS: SODIUM CHLOR 0.9% 1000 ML INJ 1,000 ML IV SCH ×3 (00:51→22:57)
[2017-01-24] MEDS: HYDROmorphone HCL PF 1 MG/ML VIAL IV PUSH PRN ×4 (00:56→18:57)
[2017-01-24] MEDS: CIPROFLOXACIN/DEXT 400 MG/200 ML IV SCH ×2 (05:47→17:04)
[2017-01-24] MEDS: ALPRAZolam 0.5 MG TAB PO PRN (06:08)
[2017-01-24] MEDS: oxyCODONE/ACETAMINOPHEN 10 MG/325 MG TAB PO PRN ×4 (06:09→22:53)
[2017-01-24] MEDS: GABAPENTIN 400 MG CAP PO SCH ×4 (07:55→22:54)
[2017-01-24] MEDS: FUROSEMIDE 40 MG TAB PO SCH (07:55)
[2017-01-24] MEDS: SODIUM CHLORIDE 0.9% FLUSH 10 ML FLUSH IV FLUSH SCH ×2 (07:56→21:00)
[2017-01-24] MEDS: ENOXAPARIN SODIUM 40 MG/0.4 ML SYRINGE SQ SCH (07:56)
[2017-01-24] MEDS: PARoxetine HCL 20 MG TAB PO SCH (07:56)
[2017-01-24] MEDS: DEXTROAMPHETAMINE/AMPHETAMINE 30 MG TAB PO SCH (07:56)
[2017-01-24 08:00] VITALS: BP 132/92; PULSE 95; RESP 19; TEMP 97.5; O2SAT 98
--- NOTE | 2017-01-24 10:15 | PD.WCN.NOT ---
Wound Consult Description: Received consult for wound to L buttock and gluteal fold from Doctor Zhou. Communicated with: AUBREY Orozco charge nurse, AUBREY GIRARD 3rd floor, and Reece Eduardo Recommendation: Please cleanse wounds to L Buttock and L Ischium with wound cleanser or normal saline and apply wound VAC dressing Monday-Monday and Monday with settings at 125 mm/hg continuous low suction, please use white foam in tunneled areas Apply moist to dry dressings until wound VAC application and change as needed. Additional Information: Patient seen on third floor [facility] for wound to L buttock and gluteal fold. Patient was assessed with the assistance of Lilian GIRARD. Patient is laying on K-4 specialty bed from [facility].Turned patient with minimal assistance from AUBREY Quintana and movie writer to R side for wound assessment. Home wound VAC was on. Stopped home wound VAC machine. Removed VAC dressing in place to reveal wounds to L buttock and L ischium. L buttock wound measures 2.2cm x 2cm x 1.4cm tunneling is noted at 1o'clock measuring 3.1cm. Wound bed presents with ~50% red granulation tissue and ~50% muscle tissue. 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 Periwound is noted with scar tissue that is thickened.Wound has well defined wound margins that appear open.Cleansed wound with wound cleanser and packed wound with normal saline moistened rolled gauze. Sprayed periwound with skin prep before applying ABD pad and tape L ischium wound measures 3cm x 8cm x4.3cm tunneling is assessed at 11o'clock 6.8 cm, minimal sero-sanguinous drainage is noted without foul odor. 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 Sprayed periwound with skin prep before securing dressing with paper tape. M[facility] Ramirez [facility] Jan 24, 2017 10:15
--- NOTE | 2017-01-24 10:15 | PD.WCN.NOT ---
Wound Consult Description: Received consult for wound to L buttock and gluteal fold from Doctor Zhou. Communicated with: AUBREY Orozco charge nurse, AUBREY GIRARD 3rd floor, and Reece Eduardo Recommendation: Please cleanse wounds to L Buttock and L Ischium with wound cleanser or normal saline and apply wound VAC dressing Monday-Monday and Monday with settings at 125 mm/hg continuous low suction, please use white foam in tunneled areas Apply moist to dry dressings until wound VAC application and change as needed. Additional Information: Patient seen on third floor [facility] for wound to L buttock and gluteal fold. Patient was assessed with the assistance of Lilian GIRARD. Patient is laying on K-4 specialty bed from [facility].Turned patient with minimal assistance from AUBREY Quintana and engineering writer to R side for wound assessment. Home wound VAC was on. Stopped home wound VAC machine. Removed VAC dressing in place to reveal wounds to L buttock and L ischium. L buttock wound measures 2.2cm x 2cm x 1.4cm tunneling is noted at 1o'clock measuring 3.1cm. Wound bed presents with ~50% red granulation tissue and ~50% muscle tissue. 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 Periwound is noted with scar tissue that is thickened.Wound has well defined wound margins that appear open.Cleansed wound with wound cleanser and packed wound with normal saline moistened rolled gauze. Sprayed periwound with skin prep before applying ABD pad and tape L ischium wound measures 3cm x 8cm x4.3cm tunneling is assessed at 11o'clock 6.8 cm, minimal sero-sanguinous drainage is noted without foul odor. 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 Sprayed periwound with skin prep before securing dressing with paper tape. Muna Ramirez [facility] Jan 24, 2017 10:15
--- NOTE | 2017-01-24 10:15 | PD.WCN.NOT ---
Wound Consult Description: Received consult for wound to L buttock and gluteal fold from Doctor Zhou. Communicated with: AUBREY Orozco charge nurse, AUBREY GIRARD 3rd floor, and Reece Eduardo Recommendation: Please cleanse wounds to L Buttock and L Ischium with wound cleanser or normal saline and apply wound VAC dressing Monday-Monday and Monday with settings at 125 mm/hg continuous low suction, please use white foam in tunneled areas Apply moist to dry dressings until wound VAC application and change as needed. Additional Information: Patient seen on third floor [facility] for wound to L buttock and gluteal fold. Patient was assessed with the assistance of Lilian GIRARD. Patient is laying on K-4 specialty bed from [facility].Turned patient with minimal assistance from AUBREY Quintana and job specification writer to R side for wound assessment. Home wound VAC was on. Stopped home wound VAC machine. Removed VAC dressing in place to reveal wounds to L buttock and L ischium. L buttock wound measures 2.2cm x 2cm x 1.4cm tunneling is noted at 1o'clock measuring 3.1cm. Wound bed presents with ~50% red granulation tissue and ~50% muscle tissue. 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 Periwound is noted with scar tissue that is thickened.Wound has well defined wound margins that appear open.Cleansed wound with wound cleanser and packed wound with normal saline moistened rolled gauze. Sprayed periwound with skin prep before applying ABD pad and tape L ischium wound measures 3cm x 8cm x4.3cm tunneling is assessed at 11o'clock 6.8 cm, minimal sero-sanguinous drainage is noted without foul odor. 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 Sprayed periwound with skin prep before securing dressing with paper tape. Muna Ramirez [facility] Jan 24, 2017 10:15
[2017-01-24 12:00] VITALS: BP 120/74; PULSE 88; RESP 19; TEMP 97.6; O2SAT 98
--- NOTE | 2017-01-24 14:23 | HHI.PR ---
Subjective Remarks The patient was resting comfortably in bed. No acute complaints. Discussed with wound care nurse. Objective Vitals Vital Signs Date Time Temp Pulse Resp B/P (MAP) Pulse Ox O2 Delivery O2 Flow Rate FiO2 01/24/17 13:51 17 01/24/17 12:39 17 01/24/17 12:00 97.6 88 19 120/74 (89) 98 01/24/17 08:00 97.5 95 19 132/92 (105) 98 01/24/17 00:00 98.4 91 20 144/93 (110) 100 01/23/17 20:00 97.8 92 18 136/82 (100) 97 01/23/17 16:51 98.1 93 15 116/67 (83) 98 I/O 01/23/17 01/23/17 01/23/17 01/24/17 01/24/17 01/24/17 07:00 15:00 23:00 07:00 15:00 23:00 Intake Total 1099 ml 2400 ml 50 ml Output Total 2500 ml 900 ml 2500 ml Balance -1401 ml -900 ml -100 ml 50 ml Intake Oral 1000 ml 50 ml IV Total 1099 ml 1400 ml Output Urine Total 2500 ml 900 ml 2500 ml Result Diagram: 01/22/17 0556 01/22/17 0556 Imaging Last Impressions Pelvis MRI 01/23/17 0000 Signed Impressions: Service Date/Time: Monday, January 23, 2017 14:07 - CONCLUSION: There are 3 soft tissue abnormalities about the pelvis a. Left para-sacral enhancing subcutaneous area extending into the medial gluteal muscle and surrounding the tip of the sacrum characteristic of a decubitus ulcer with associated osteomyelitis. b. Nonenhancing signal abnormality in the anterior musculature of the proximal thigh extending from skin to anterior hip joint capsule. c. Greater trochanteric bursitis. Syed Tamayo MD Chest X-Ray 01/22/17 0000 Signed Impressions: Service Date/Time: Sunday, January 22, 2017 09:23 - CONCLUSION: 1. Bibasilar areas of suspected atelectasis or consolidation. These appear worse. 2. Increased density at the lateral left base with elevation of the apparent lateral left hemidiaphragm which can be seen with a subpulmonic effusion. Shmuel Jason MD Objective Remarks GENERAL: This is a well-nourished, paraplegic male who is otherwise well- developed patient, in no apparent distress. CARDIOVASCULAR: Regular rate and rhythm without murmurs, gallops, or rubs. RESPIRATORY: Clear to auscultation. Breath sounds equal bilaterally. No wheezes , rales, or rhonchi. GASTROINTESTINAL: Hilton, Abdomen soft, non-tender, nondistended. Normal active bowel sounds MUSCULOSKELETAL: Sacral wound with VAC, Extremities without clubbing, cyanosis, or edema. NEURO: Alert & Oriented x4 to person, place, time, situation. Medications and IVs Current Medications Medications (Trade) Dose Ordered Sig/Jennifer Route Start Time Stop Time Status Last Admin Sodium Chloride 1,000 ml @ 100 mls/hr Q10H IV 01/21/17 16:45 01/23/17 09:36 (NS Flush) 2 ml UNSCH PRN IV FLUSH 01/21/17 19:00 (NS Flush) 2 ml BID IV FLUSH 01/21/17 21:00 01/24/17 07:56 (Tylenol) 650 mg Q4H PRN PO 01/21/17 19:00 01/21/17 20:45 (Zofran Inj) 4 mg Q6H PRN IVP 01/21/17 19:00 (Narcan Inj) 0.4 mg UNSCH PRN IV PUSH 01/21/17 19:00 (Xanax) 1 mg QID PRN PO 01/21/17 19:00 01/24/17 06:08 (Elavil) 50 mg HS PO 01/21/17 21:00 01/23/17 20:23 (Adderall) 30 mg DAILY PO 01/22/17 09:00 (Lasix) 40 mg DAILY PO 01/22/17 09:00 01/24/17 07:55 (Neurontin) 800 mg QID PO 01/21/17 21:00 01/24/17 13:13 (Paxil) 20 mg DAILY PO 01/22/17 09:00 01/24/17 07:56 (Ambien) 10 mg HS PRN PO 01/21/17 19:00 01/23/17 23:34 Daptomycin 600 mg/ Sodium Chloride 100 ml @ 200 mls/hr DAILY@1800 IV 01/22/17 18:00 01/23/17 17:41 (Lovenox Inj) 40 mg Q24H SQ 01/22/17 10:00 Ciprofloxacin/ Dextrose 200 ml @ 200 mls/hr Q12H IV 01/22/17 17:00 01/24/17 05:47 (Percocet 10-325 Mg) 1 tab Q4H PRN PO 01/23/17 15:00 01/24/17 11:34 (Dilaudid Pf Inj) 1 mg Q4H PRN IV PUSH 01/23/17 15:00 01/24/17 13:21 A/P Problem List: (1) Sepsis ICD Code: A41.9 - Sepsis, unspecified organism Status: Acute (2) Sacral decubitus ulcer ICD Code: L89.159 - Pressure ulcer of sacral region, unspecified stage Status: Acute (3) Neurogenic bladder ICD Code: N31.9 - Neurogenic bladder Status: Acute (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 Sacral decubitus ulcer Pressure ulcer of sacral region. - Continue daptomycin for now, patient follows up with the wound care team as outpatient wound care eval for wound VAC management. Recs appreciated. Neurogenic bladder Patient with chronic Hilton. - continue Hilton. Paraplegia Following spinal cord injury. - Continue with supportive care and specialty mattress, Multi-Podus boots. Fever Recent UTI, pseudomonal per patient. Chest x-ray with possible infiltrates. - continue current daptomycin and Cipro. PPx: Lovenox Problem Qualifiers (1) Sacral decubitus ulcer: Qualified Codes: L89.159 - Pressure ulcer of sacral region, unspecified stage (2) Fever: Jaiden Meza DO Jan 24, 2017 14:23
[2017-01-24 16:00] VITALS: BP 125/82; PULSE 90; RESP 19; TEMP 97.6; O2SAT 98
[2017-01-24] MEDS: DAPTOmycin INJ 600 MG in SODIUM CHLORIDE 0.9% INJ 100 ML IV SCH (18:22)
[2017-01-24 20:00] VITALS: BP 128/79; PULSE 90; RESP 20; TEMP 98.6; O2SAT 100
[2017-01-24] MEDS: AMITRIPTYLINE HCL 50 MG TAB PO SCH (22:53)
[2017-01-24] MEDS: ZOLPIDEM TARTRATE 10 MG TAB PO PRN (22:54)
[2017-01-25] VITALS: BP 150/96; PULSE 95; RESP 20; TEMP 99; O2SAT 97
[2017-01-25] MEDS: HYDROmorphone HCL PF 1 MG/ML VIAL IV PUSH PRN ×3 (01:31→17:00)
[2017-01-25] MEDS: oxyCODONE/ACETAMINOPHEN 10 MG/325 MG TAB PO PRN ×3 (05:09→22:29)
[2017-01-25] MEDS: CIPROFLOXACIN/DEXT 400 MG/200 ML IV SCH ×2 (05:10→16:47)
[2017-01-25 08:00] VITALS: BP 121/82; PULSE 96; RESP 18; TEMP 98.1; O2SAT 97
[2017-01-25] MEDS: PARoxetine HCL 20 MG TAB PO SCH (08:26)
[2017-01-25] MEDS: FUROSEMIDE 40 MG TAB PO SCH (08:26)
[2017-01-25] MEDS: DEXTROAMPHETAMINE/AMPHETAMINE 30 MG TAB PO SCH (08:26)
[2017-01-25] MEDS: GABAPENTIN 400 MG CAP PO SCH ×4 (08:26→22:28)
[2017-01-25] MEDS: ENOXAPARIN SODIUM 40 MG/0.4 ML SYRINGE SQ SCH (08:28)
[2017-01-25] MEDS: SODIUM CHLORIDE 0.9% FLUSH 10 ML FLUSH IV FLUSH SCH ×2 (09:00→21:00)
[2017-01-25] MEDS: SODIUM CHLOR 0.9% 1000 ML INJ 1,000 ML IV SCH ×2 (10:01→22:28)
--- NOTE | 2017-01-25 11:22 | PD.WCN.NOT ---
Wound Consult Description: Patient seen for wound VAC application to L buttock and L ischium Communicated with: Tasia Day 3rd floor [facility] Recommendation: Please cleanse wounds to L Buttock and L Ischium with wound cleanser or normal saline and apply wound VAC dressing Monday-Monday and Monday with settings at 125 mm/hg continuous low suction, please use white foam in tunneled areas Apply moist to dry dressings until wound VAC application and change as needed. Neg Pressure Wound Therapy Wound Location Wound Location: L buttock Wound Description Length: 2.2cm Width: 2cm Depth: 1.4cm Tunneling: tunneling is noted at 1o'clock measuring 3.1cm. Wound bed appearance: Wound bed presents with ~50% red granulation tissue and ~50% muscle tissue.Wound has minimal sero-sanguinous drainage that is without foul odor. Periwound appearance: Other (thickened scar tissue) Settings Suction: 125 mmHg, Continuous Intensity: Low Other Information: Bridged, Windowpaned Foam type: Black, White Number of pieces: 2 Additonal Information See additional information below Wound Location Wound Location: L ischium Wound Description Length: 3cm Width: 8cm Depth: 4.3cm Tunneling: tunneling is assessed at 11o'clock 6.8 cm Wound bed appearance: Minimal sero-sanguinous drainage is noted without foul odor. Wound bed presents with ~30% pale red granulation tissue and ~70% muscle tissue. Periwound appearance: Other (Thickened scar tissue) Settings Suction: 125 mmHg, Continuous Intensity: Low Other Information: Bridged, Windowpaned Foam type: Black, White Number of pieces: 3 Additonal Information Patient seen around 0930 01/25/2017 for wound VAC application.Cleansed wounds to L buttock and L ischium with wound cleanser and pat dry. Sprayed periwound up to L hip with skin prep before window paning wound with VAC drape. White granufoam was then cut into single strips and first packed into L buttock tunneled area. White foam was then packed in to ischial wound. White foam was pulled out ~1cm to allow for granulation. Applied black granufoam in single strip to L buttock that was then bridged over VAC drape to L hip area. Applied one strip of black granufoam coiled into wound bed of L ischial wound in a cinnamon roll fashion. Applied 1 additional smaller, thinner strip of black granufoam to L ischial.wound and secured with VAC drape. Hole was then cut to expose granufoam and black granufoam was then bridged to L hip over VAC drape. Mushroom cap of black granufoam was cut and applied over bridged granufoam from both wounds to L hip with Sensi trac pad. Wound VAC is suctioning at 125 mm/hg low continuous suction, without leaks. Next wound VAC dressing change is due on Monday01/27/2017. Muna Ramirez [facility] Jan 25, 2017 11:22
[2017-01-25 12:00] VITALS: BP 147/79; PULSE 98; RESP 18; TEMP 98.9; O2SAT 100
--- NOTE | 2017-01-25 12:03 | HHI.PR ---
Subjective Remarks The patient was resting in bed comfortably. He was anxious to go home. He had no acute complaints. He said he was just a little cold. Objective Vitals Vital Signs Date Time Temp Pulse Resp B/P (MAP) Pulse Ox O2 Delivery O2 Flow Rate FiO2 01/25/17 09:24 20 01/25/17 08:00 98.1 96 18 121/82 (95) 97 01/25/17 00:00 99.0 95 20 150/96 (114) 97 01/24/17 20:00 98.6 90 20 128/79 (95) 100 01/24/17 18:04 18 01/24/17 16:00 97.6 90 19 125/82 (96) 98 01/24/17 12:00 97.6 88 19 120/74 (89) 98 I/O 01/24/17 01/24/17 01/24/17 01/25/17 01/25/17 01/25/17 07:00 15:00 23:00 07:00 15:00 23:00 Intake Total 250 ml 1730 ml 60 ml Output Total 3101 ml 1150 ml Balance 250 ml -1371 ml -1090 ml Intake Oral 50 ml 1480 ml 60 ml IV Total 200 ml 250 ml Output Urine Total 3100 ml 1150 ml Stool Total 1 ml 0 ml # Voids 6 # Bowel Movements 0 Result Diagram: 01/22/17 0556 01/22/17 0556 Imaging Last Impressions Pelvis MRI 01/23/17 0000 Signed Impressions: Service Date/Time: Monday, January 23, 2017 14:07 - CONCLUSION: There are 3 soft tissue abnormalities about the pelvis a. Left para-sacral enhancing subcutaneous area extending into the medial gluteal muscle and surrounding the tip of the sacrum characteristic of a decubitus ulcer with associated osteomyelitis. b. Nonenhancing signal abnormality in the anterior musculature of the proximal thigh extending from skin to anterior hip joint capsule. c. Greater trochanteric bursitis. Syed Tamayo MD Chest X-Ray 01/22/17 0000 Signed Impressions: Service Date/Time: Sunday, January 22, 2017 09:23 - CONCLUSION: 1. Bibasilar areas of suspected atelectasis or consolidation. These appear worse. 2. Increased density at the lateral left base with elevation of the apparent lateral left hemidiaphragm which can be seen with a subpulmonic effusion. Shmuel Jason MD Objective Remarks GENERAL: This is a well-nourished, paraplegic male who is otherwise well- developed patient, in no apparent distress. CARDIOVASCULAR: Regular rate and rhythm without murmurs, gallops, or rubs. RESPIRATORY: Clear to auscultation. Breath sounds equal bilaterally. No wheezes , rales, or rhonchi. GASTROINTESTINAL: Hilton, Abdomen soft, non-tender, nondistended. Normal active bowel sounds MUSCULOSKELETAL: Sacral wound with VAC, Extremities without clubbing, cyanosis, or edema. NEURO: Alert & Oriented x4 to person, place, time, situation. PSYCH: Mood and affect appropriate. Medications and IVs Current Medications Medications (Trade) Dose Ordered Sig/Jennifer Route Start Time Stop Time Status Last Admin Sodium Chloride 1,000 ml @ 100 mls/hr Q10H IV 01/21/17 16:45 01/25/17 10:01 (NS Flush) 2 ml UNSCH PRN IV FLUSH 01/21/17 19:00 (NS Flush) 2 ml BID IV FLUSH 01/21/17 21:00 01/25/17 09:00 (Tylenol) 650 mg Q4H PRN PO 01/21/17 19:00 01/21/17 20:45 (Zofran Inj) 4 mg Q6H PRN IVP 01/21/17 19:00 (Narcan Inj) 0.4 mg UNSCH PRN IV PUSH 01/21/17 19:00 (Xanax) 1 mg QID PRN PO 01/21/17 19:00 01/24/17 06:08 (Elavil) 50 mg HS PO 01/21/17 21:00 01/24/17 22:53 (Adderall) 30 mg DAILY PO 01/22/17 09:00 01/25/17 08:26 (Lasix) 40 mg DAILY PO 01/22/17 09:00 01/25/17 08:26 (Neurontin) 800 mg QID PO 01/21/17 21:00 01/25/17 11:19 (Paxil) 20 mg DAILY PO 01/22/17 09:00 01/25/17 08:26 (Ambien) 10 mg HS PRN PO 01/21/17 19:00 01/24/17 22:54 Daptomycin 600 mg/ Sodium Chloride 100 ml @ 200 mls/hr DAILY@1800 IV 01/22/17 18:00 01/24/17 18:22 (Lovenox Inj) 40 mg Q24H SQ 01/22/17 10:00 Ciprofloxacin/ Dextrose 200 ml @ 200 mls/hr Q12H IV 01/22/17 17:00 01/25/17 05:10 (Percocet 10-325 Mg) 1 tab Q4H PRN PO 01/23/17 15:00 01/25/17 11:20 (Dilaudid Pf Inj) 1 mg Q4H PRN IV PUSH 01/23/17 15:00 01/25/17 08:54 A/P Problem List: (1) Sepsis ICD Code: A41.9 - Sepsis, unspecified organism Status: Acute (2) Sacral decubitus ulcer ICD Code: L89.159 - Pressure ulcer of sacral region, unspecified stage Status: Acute (3) Neurogenic bladder ICD Code: N31.9 - Neurogenic bladder Status: Acute (4) 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 CXR with possible consolidation. MRI with OM. - Cultures positive for MRSA/Klebsiella. Continue with daptomycin and Cipro. Sacral decubitus ulcer/ Osteomyelitis Pressure ulcer of sacral region. MRI showed: There are 3 soft tissue abnormalities about the pelvis; Left para-sacral enhancing subcutaneous area extending into the medial gluteal muscle and surrounding the tip of the sacrum characteristic of a decubitus ulcer with associated osteomyelitis; Nonenhancing signal abnormality in the anterior musculature of the proximal thigh extending from skin to anterior hip joint capsule; Greater trochanteric bursitis. - Continue daptomycin and Cipro per ID. - wound care eval for wound VAC management. Recs appreciated. Neurogenic bladder Patient with chronic Hilton. Has UTI. - continue Hilton. - antibiotics per ID. Paraplegia Following spinal cord injury. - Continue with supportive care and specialty mattress, Multi-Podus boots. - PT/ OT. PPx: Lovenox Discharge Planning Awaiting ID clearance and final antibiotic recommendations Problem Qualifiers (1) Sacral decubitus ulcer: Qualified Codes: L89.159 - Pressure ulcer of sacral region, unspecified stage (2) Fever: Jaiden Meza DO Jan 25, 2017 12:03
--- NOTE | 2017-01-25 16:16 | HHI.FF ---
Face to Face Verification Diagnosis: (1) Osteomyelitis of sacrum (2) Pressure ulcer Physical Therapy Order: Evaluate and Treat, Improve ambulation, Strength and gait training Home Health Nursing Order: Medical education Signs/symptoms of disease process Wound care and dressing changes Nursing assessment with vital signs IV medication administration Instructions: Wound VAC management, wound care please cleanse wound to left buttocks and left ilium with wound cleanser or normal saline and apply wound VAC dressing Monday, Monday, Monday with settings at 125 mm/hg continuous low suction, please use white foam in tunneling areas, apply moist to dry dressings until wound VAC application and change as needed I have seen patient Dima Daniels Jr Bertrand on 01/25/17. My clinical findings support the need for the requested home health care services because: Ltd mobility - disease progression Deconditioned w/ increased weakness Limited ability to care for self I certify that my clinical findings support that this patient is homebound because: Unsteady gait/balance Unsafe to leave home unassisted Reece Pérez Jan 25, 2017 16:16 Jaiden Meza DO Jan 26, 2017 18:11
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
--- NOTE | 2017-01-25 16:43 | HHI.FF ---
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 [] May leave port accessed during therapy. [] May leave peripheral site accessed for duration of therapy. [x] If patient has SOB or respiratory distress, check oxygen saturation. If less than 90% or clinical signs of respiratory distress, administer oxygen at 2 L/min. via nasal cannula and notify physician. [x] Anaphylaxis/Reaction orders: * Stop infusion. * Keep IV line open with saline flush. * Notify physician. * Monitor vital signs every 15 minutes until symptoms resolve. * Check Oxygen saturation; Oxygen at 2 L/min. via nasal cannula if less than 90% or clinical signs of respiratory distress. * Administer diphenhydramine (Benadryl) 25 mg IV STAT, (unless patient has received as pre-med). May repeat once, if necessary. * Solu-Cortef 250 mg IVP over 30-60 seconds, use 100 mg vials for each dissolution. * Epinephrine (1mg/1 ml) 0.3 mg subcutaneously or IVP now with any signs of respiratory distress. * Check with physician for new additional pre-med orders if patient is re- challenged or re-treated. [x] May remove PICC line when treatment complete, after confirming with Physician. [x] If the patient is admitted to the hospital, the ED, or transferred via [facility] , complete transfer form including medication reconciliation order sheet. Laboratory Tests Weekly Labs: BMP, SED Rate, Serum CK Levels Additional Information Follow up with Dr Kimmy Kwong ID in 1 week. Please send lab results to Dr. Kwong. Pérez Veras MD Jan 25, 2017 16:43
[2017-01-25] MEDS: DAPTOmycin INJ 600 MG in SODIUM CHLORIDE 0.9% INJ 100 ML IV SCH (16:47)
[2017-01-25 19:56] LABS: BASOPHIL # 0.2 TH/MM3 (0-0.2); BASOPHIL % 2.7 % (0.0-2.0); EOSINOPHIL # 0.1 TH/MM3 (0-0.4); HEMATOCRIT 36.5 % (39.0-51.0); HEMOGLOBIN 11.6 GM/DL (13.0-17.0); LYMPH % 20.4 % (9.0-44.0); LYMPHOCYTE # 1.2 TH/MM3 (1.0-4.8); MEAN CELL VOLUME 69.9 FL (80.0-100.0); MEAN CORPUSCULAR HEMOGLOBIN 22.2 PG (27.0-34.0); MEAN CORPUSCULAR HGB CONC 31.7 % (32.0-36.0); MEAN PLATELET VOLUME 5.9 FL (7.0-11.0); MONO % 6.2 % (0.0-8.0); MONOCYTE # 0.4 TH/MM3 (0-0.9); NEUT % 69.7 % (16.0-70.0); PLATELET COUNT 563 TH/MM3 (150-450); RED BLOOD COUNT 5.22 MIL/MM3 (4.50-5.90); RED CELL DISTRIBUTION WIDTH 16.3 % (11.6-17.2); WHITE BLOOD COUNT 5.9 TH/MM3 (4.0-11.0)
[2017-01-25 20:00] VITALS: BP 136/86; PULSE 93; RESP 20; TEMP 99.8; O2SAT 97
[2017-01-25 20:15] LABS: BICARBONATE 31.1 MEQ/L (21.0-32.0); CREATININE 0.53 MG/DL (0.60-1.30)
[2017-01-25] MEDS: ZOLPIDEM TARTRATE 10 MG TAB PO PRN (22:28)
[2017-01-25] MEDS: AMITRIPTYLINE HCL 50 MG TAB PO SCH (22:29)
[2017-01-26] MEDS: HYDROmorphone HCL PF 1 MG/ML VIAL IV PUSH PRN ×2 (00:05→08:32)
[2017-01-26 00:06] VITALS: BP 150/90; PULSE 115; RESP 18; TEMP 99.9; O2SAT 95
[2017-01-26] MEDS: CIPROFLOXACIN/DEXT 400 MG/200 ML IV SCH (05:58)
[2017-01-26] MEDS: oxyCODONE/ACETAMINOPHEN 10 MG/325 MG TAB PO PRN ×2 (05:58→11:02)
[2017-01-26] MEDS: SODIUM CHLOR 0.9% 1000 ML INJ 1,000 ML IV SCH (06:45)
[2017-01-26 08:00] VITALS: BP 136/82; PULSE 102; RESP 18; TEMP 97.7; O2SAT 99
[2017-01-26] MEDS: ENOXAPARIN SODIUM 40 MG/0.4 ML SYRINGE SQ SCH (08:31)
[2017-01-26] MEDS: PARoxetine HCL 20 MG TAB PO SCH (08:31)
[2017-01-26] MEDS: GABAPENTIN 400 MG CAP PO SCH ×2 (08:31→13:45)
[2017-01-26] MEDS: FUROSEMIDE 40 MG TAB PO SCH (08:31)
[2017-01-26] MEDS: DEXTROAMPHETAMINE/AMPHETAMINE 30 MG TAB PO SCH (08:39)
[2017-01-26] MEDS: SODIUM CHLORIDE 0.9% FLUSH 10 ML FLUSH IV FLUSH SCH (09:33)
[2017-01-26] MEDS ORDERED: DAPT250I IV (10:54)
[2017-01-26] MEDS ORDERED: CIPR500T2 PO (10:54)
--- NOTE | 2017-01-26 11:08 | RADRPT ---
EXAM DATE/TIME: 01/26/2017 10:24 [place] COMPARISON: CHEST SINGLE AP, January 22, 2017, 9:23. INDICATIONS : Post PICC line insertion. MEDICAL HISTORY : Methicillin-resistant Staphylococcus aureus. Paraplegia. SURGICAL HISTORY : Fusion, lumbar. Fusion, thoracic. Phelps rods. ENCOUNTER: Subsequent ACUITY: 4 - 6 days PAIN SCORE: 0/10 LOCATION: Right chest FINDINGS: Right arm PICC now present, tip at the atriocaval junction. No infiltrate, effusion or pneumothorax s een. Left base scarring again noted. CONCLUSION: Right arm PICC placed since the prior study with tip at atriocaval junction. Shmuel Napoles MD on January 26, 2017 at 11:06 Board Certified Radiologist. This report was verified electronically.
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
[2017-01-26] MEDS ORDERED: SODIUM CHLORIDE 0.9% FLUSH 10 ML FLUSH IV FLUSH PRN (11:15)
[2017-01-26 12:00] VITALS: BP 133/79; PULSE 78; RESP 18; TEMP 96.9; O2SAT 97
[2017-01-26] MEDS ORDERED: DAPTOmycin INJ 600 MG in SODIUM CHLORIDE 0.9% INJ 100 ML IV SCH (14:00)
[2017-01-27] MEDS ORDERED: SODIUM CHLORIDE 0.9% FLUSH 10 ML FLUSH IV FLUSH SCH (09:00)
== END 2017-01-26 16:00 | disposition home health service (06) | DRG 871 ==
LOC: PHED 15:47 → PHEDA 18:41 → PH3A 20:24
PROVIDERS: ADMIT Hospitalist; ATTEND Hospitalist
PROC: 02HV33Z Insertion of Infusion Device into Superior Vena Cava, Percutaneous Approach (ICD-10-PCS; principal; 2017-01-26)
PROC: B548ZZA Ultrasonography of Superior Vena Cava, Guidance (ICD-10-PCS; 2017-01-26)
DX: A41.9 Sepsis, unspecified organism (principal); L89.154 Pressure ulcer of sacral region, stage 4; G82.20 Paraplegia, unspecified; N31.9 Neuromuscular dysfunction of bladder, unspecified; M46.28 Osteomyelitis of vertebra, sacral and sacrococcygeal region; N39.0 Urinary tract infection, site not specified; B96.4 Proteus (mirabilis) (morganii) as the cause of diseases classified elsewhere; F17.210 Nicotine dependence, cigarettes, uncomplicated; Z93.3 Colostomy status; Z87.440 Personal history of urinary (tract) infections
CPT/HCPCS: 36569; 51702; 71010; 72197; 76937; 80048; 80053; 81001; 82550; 83605; 85025; 85610; 85652; 85730; 86140; 86403; 87040; 87070; 87077; 87086; 87147; 87186; 87205; 96361; 96365; 96375; A9579; J0744; J0878; J1170; J1642; J1644; J1650; J2405; J7030

== ENCOUNTER 2017-03-02 17:43 | Inpatient (IN) | payer MEDICARE, MEDICAID ==
[~2017-03-02] VITALS: Ht 182.9 cm; Wt 92.5 kg
[~2017-03-02 17:43] MED LIST changes: -BACT800T5 PO; +CIPR500T2 PO; +DAPT250I IV; -HYDR-3583 PO; -NITR1CAP37 PO; +PERC10TA27 PO; -TIZA4CAP3 PO; +TRAZ1TAB14 PO; -TRAZ1TAB45 PO
[2017-03-02 17:46] VITALS: BP 178/83; PULSE 144; RESP 14; TEMP 103.1; O2SAT 98
[2017-03-02] MEDS ORDERED: HYDR-3583 PO (18:07)
[2017-03-02] MEDS ORDERED: SODIUM CHLOR 0.9% 1000 ML INJ 1,000 ML IV ONE (18:15)
[2017-03-02] MEDS ORDERED: PIPERACIL-TAZO 3.375 GM PREMIX 50 ML IV ONE (18:15)
[2017-03-02] MEDS ORDERED: VANCOMYCIN INJ 1,000 MG in SODIUM CHLOR 0.9% 250 ML INJ 250 ML IV ONE (18:15)
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
--- NOTE | 2017-03-02 19:00 | RADRPT ---
EXAM DATE/TIME: 03/02/2017 18:19 [place] COMPARISON: CHEST SINGLE AP, January 22, 2017, 9:23. CHEST SINGLE AP, January 26, 2017, 10:24. INDICATIONS : Fever MEDICAL HISTORY : Methicillin-resistant Staphylococcus aureus. Paraplegia. SURGICAL HISTORY : Fusion, lumbar. Fusion, thoracic. Phelps rods. ENCOUNTER: Initial ACUITY: 1 day PAIN SCORE: 0/10 LOCATION: Chest FINDINGS: There is increased density at the left lateral base with silhouetting of the left lateral hemidiaphra gm. This appearance is unchanged. There is some minimal linear density seen at the right base. The lungs are otherwise clear. The heart size is normal. There is a PICC line in place from the right arm with the tip overlying the SVC. There is surgical hardware in the lower thoracic and upper lumba r spine. CONCLUSION: Stable areas of suspected pleural scarring at the left lateral base and minimally at the right base. A new or acute abnormality is not clearly seen. Shmuel Jason MD on March 02, 2017 at 18:49 Board Certified Radiologist. This report was verified electronically.
[2017-03-02 19:07] LABS: AUTOMATED NEUTROPHIL # 5.5 TH/MM3 (1.8-7.7); BASOPHIL % 0.5 % (0.0-2.0); HEMATOCRIT 31.2 % (39.0-51.0); HEMO FLAGS DIFF FINAL; LYMPH % 6.2 % (9.0-44.0); LYMPHOCYTE # 0.4 TH/MM3 (1.0-4.8); MEAN CELL VOLUME 68.4 FL (80.0-100.0); MEAN CORPUSCULAR HEMOGLOBIN 21.4 PG (27.0-34.0); MEAN CORPUSCULAR HGB CONC 31.3 % (32.0-36.0); MONO % 4.5 % (0.0-8.0); NEUT % 88.8 % (16.0-70.0); PLATELET COUNT 272 TH/MM3 (150-450); RED BLOOD COUNT 4.56 MIL/MM3 (4.50-5.90); RED CELL DISTRIBUTION WIDTH 17.3 % (11.6-17.2); WHITE BLOOD COUNT 6.2 TH/MM3 (4.0-11.0)
[2017-03-02 19:17] VITALS: BP 93/52; PULSE 113; RESP 20; TEMP 100.3; O2SAT 96
[2017-03-02 19:38] LABS: ANION GAP 9 MEQ/L (5-15); AST (GOT) 14 U/L (15-37); BICARBONATE 27.4 MEQ/L (21.0-32.0); BLOOD UREA NITROGEN 9 MG/DL (7-18); CHLORIDE 94 MEQ/L (98-107); GLOMERULAR FILTRATION RATE 118 ML/MIN (>89); MAGNESIUM 1.4 MG/DL (1.5-2.5); POTASSIUM 3.1 MEQ/L (3.5-5.1); SODIUM (NA) 130 MEQ/L (136-145)
[2017-03-02 19:45] LABS: ALKALINE PHOSPHATASE 103 U/L (45-117); ALT (GPT) 12 U/L (12-78); TOTAL BILIRUBIN ADULT 0.2 MG/DL (0.2-1.0)
[2017-03-02 19:49] LABS: CREATINE KINASE 85 U/L (39-308)
[2017-03-02 19:58] LABS: APTT (PATIENT) 43.2 SEC (24.3-30.1); INTERNATIONAL NORMALIZED RATIO 1.1 RATIO; PROTHROMBIN TIME - PATIENT 11.3 SEC (9.8-11.6)
[2017-03-02 20:15] VITALS: BP 96/54; PULSE 104; RESP 20; TEMP 100.3; O2SAT 96
[2017-03-02] MEDS ORDERED: ACETAMINOPHEN/HYDROcodone 325 MG/10 MG TAB PO ONE (20:45)
[2017-03-02 20:58] LABS: LACTIC ACID GHOST NOT REPORTABLE
[2017-03-02 21:03] LABS: BACTERIA, URINE OCC /hpf; BLOOD, URINE TRACE (NEG); COMMENT (UR) CULTURE INDICATED; CULTURE IF INDICATED CULTURE INDICATED; GLUCOSE,URINE NEG (NEG); KETONE, URINE NEG (NEG); NITRITE,URINE NEG (NEG); PH, URINE 6.5 (5.0-8.5); URINE COLOR LIGHT-YELLOW (YELLW/STRAW)
[2017-03-02 21:26] VITALS: BP 111/51; PULSE 100; RESP 20; TEMP 98.8; O2SAT 95
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
[2017-03-02] MEDS ORDERED: POTASSIUM CHLORIDE 20 MEQ CONTROLLED RELEASE TAB PO ONE (21:45)
[2017-03-02] MEDS ORDERED: HYDROmorphone HCL 2 MG TAB PO PRN (22:45)
[2017-03-02] MEDS ORDERED: MAGNESIUM HYDROXIDE SUSP 30 ML CUP PO PRN (22:45)
[2017-03-02] MEDS ORDERED: SODIUM CHLORIDE 0.9% FLUSH 10 ML FLUSH IV FLUSH PRN (22:45)
[2017-03-02] MEDS ORDERED: LACTULOSE SYRUP 20 GM/30 ML CUP PO PRN (22:45)
[2017-03-02] MEDS ORDERED: ACETAMINOPHEN 325 MG TAB PO PRN (22:45)
[2017-03-02] MEDS ORDERED: NALOXONE HCL 0.4 MG/ML AMP IV PUSH PRN ×2 (22:45)
[2017-03-02] MEDS ORDERED: ACETAMINOPHEN/HYDROcodone 325 MG/5 MG TAB PO PRN (22:45)
[2017-03-02] MEDS ORDERED: POTASSIUM CHLORIDE 10 MEQ CONTROLLED RELEASE TAB PO ONE (22:45)
[2017-03-02] MEDS ORDERED: SENNOSIDES 8.6 MG TAB PO PRN (22:45)
[2017-03-02] MEDS: SODIUM CHLOR 0.9% 1000 ML INJ 1,000 ML IV SCH (23:00)
[2017-03-02 23:10] VITALS: BP 103/58; PULSE 94; RESP 20
[2017-03-03] VITALS (7 sets, daily range): BP systolic 92–120; BP diastolic 51–67; PULSE 80–90; RESP 17–20; TEMP 95.7–97.7; O2SAT 93–98
[2017-03-03] MEDS: ENOXAPARIN SODIUM 40 MG/0.4 ML SYRINGE SQ SCH ×2 (00:21→21:34)
[2017-03-03] MEDS ORDERED: FURO40TA PO (00:31)
[2017-03-03] MEDS ORDERED: oxyCODONE/ACETAMINOPHEN 10 MG/325 MG TAB PO PRN (00:45)
[2017-03-03] MEDS ORDERED: ACETAMINOPHEN/HYDROcodone 325 MG/10 MG TAB PO PRN (01:30)
[2017-03-03] MEDS ORDERED: ACETAMINOPHEN/HYDROcodone 325 MG/5 MG TAB PO PRN ×3 (01:45→08:45)
[2017-03-03] MEDS: PIPERACIL-TAZO 3.375 GM PREMIX 50 ML IV SCH ×4 (03:26→21:32)
[2017-03-03] MEDS: SODIUM CHLOR 0.9% 1000 ML INJ 1,000 ML IV SCH ×4 (05:29→22:45)
[2017-03-03] MEDS: HYDROmorphone HCL PF 1 MG/ML VIAL IV PUSH PRN ×5 (05:31→21:42)
[2017-03-03 08:58] LABS: AUTOMATED NEUTROPHIL # 1.5 TH/MM3 (1.8-7.7); BASOPHIL % 1.1 % (0.0-2.0); EOSINOPHIL % 0.5 % (0.0-4.0); HEMATOCRIT 32.5 % (39.0-51.0); HEMO FLAGS DIFF FINAL; LYMPH % 29.7 % (9.0-44.0); LYMPHOCYTE # 0.8 TH/MM3 (1.0-4.8); MEAN CELL VOLUME 69.9 FL (80.0-100.0); MEAN CORPUSCULAR HEMOGLOBIN 21.1 PG (27.0-34.0); MEAN CORPUSCULAR HGB CONC 30.1 % (32.0-36.0); MONO % 7.8 % (0.0-8.0); NEUT % 60.9 % (16.0-70.0); PLATELET COUNT 220 TH/MM3 (150-450); RED BLOOD COUNT 4.64 MIL/MM3 (4.50-5.90); RED CELL DISTRIBUTION WIDTH 17.3 % (11.6-17.2); WHITE BLOOD COUNT 2.5 TH/MM3 (4.0-11.0)
[2017-03-03] MEDS: SODIUM CHLORIDE 0.9% FLUSH 10 ML FLUSH IV FLUSH SCH ×2 (08:59→21:30)
[2017-03-03] MEDS ORDERED: MAGNESIUM OXIDE 400 MG TAB PO SCH (09:00)
[2017-03-03] MEDS: VANCOMYCIN INJ 1,250 MG in SODIUM CHLOR 0.9% 250 ML INJ 250 ML IV SCH ×2 (09:00→21:31)
[2017-03-03] MEDS: PANTOPRAZOLE SOD 40 MG DELAYED RELEASE TAB PO SCH (09:01)
[2017-03-03] MEDS: GABAPENTIN 400 MG CAP PO SCH ×4 (09:01→21:30)
[2017-03-03] MEDS: PARoxetine HCL 20 MG TAB PO SCH (09:02)
[2017-03-03] MEDS: FUROSEMIDE 40 MG TAB PO SCH (09:02)
[2017-03-03 09:21] LABS: ALKALINE PHOSPHATASE 90 U/L (45-117); ALT (GPT) 12 U/L (12-78); ANION GAP 7 MEQ/L (5-15); AST (GOT) 21 U/L (15-37); BICARBONATE 27.5 MEQ/L (21.0-32.0); BLOOD UREA NITROGEN 8 MG/DL (7-18); CHLORIDE 104 MEQ/L (98-107); GLOMERULAR FILTRATION RATE 218 ML/MIN (>89); POTASSIUM 4.4 MEQ/L (3.5-5.1); SODIUM (NA) 138 MEQ/L (136-145); TOTAL BILIRUBIN ADULT 0.2 MG/DL (0.2-1.0)
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
[2017-03-03] MEDS ORDERED: SODIUM CHLOR 0.9% 1000 ML INJ 1,000 ML IV ONE (09:30)
[2017-03-03 09:36] LABS: FERRITIN 30 NG/ML (26-388); TRANSFERRIN IRON PROFILE 178 MG/DL (200-360)
[2017-03-03] MEDS: ACETAMINOPHEN/HYDROcodone 325 MG/10 MG TAB PO PRN ×3 (11:47→23:38)
[2017-03-03] MEDS: ALPRAZolam 1 MG TAB PO PRN ×2 (11:47→23:38)
--- NOTE | 2017-03-03 13:48 | PD.WCN.NOT ---
Wound Consult Description: Received consult for pressure ulcer to sacrum and L buttock from Doctor Marco Harris Communicated with: RN Shmuel Jj and Call placed to resident ship/rec/doc control for Doctor Diane Recommendation: Please Cleanse wounds to L ischium and sacrum with normal saline. Apply 1/4 strength or 0.125% Dakin's moistened gauze packed in to wound beds and cover with dry cover dressing until seen by infectious disease. If OK with infectious disease resume wound VAC to L ischium and sacral wounds as previously ordered for Home health care. Please order VAC from [facility] for use in hospital. Switch patient to home VAC when discharged. Additional Information: Patient seen on for pressure ulcer evaluation of sacrum and L buttock around 1100, full note to follow. Muna Ramirez [facility] Mar 03, 2017 13:48
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
[2017-03-03] MEDS: SODIUM HYPOCHLORITE 0.125% 500 ML BTL TOPICAL SCH ×2 (14:00→21:33)
--- NOTE | 2017-03-03 16:01 | HHI.FPPN ---
Addendum to progress note ADDENDUM Reason for addendum: Additonal documentation Additional information Resident team called Dr. Kimmy Kwong's office to acquire about urine cultures, mentioned by patient. Spoke to Dr. Kwong's nurse practitioner. Patient was seen as a hospital follow-up at Dr. Kwong's office x1 on February 17, 2017. Patient reported fevers. Urine and wound cultures were sent. Urine grew Proteus with resistance to Ancef, Levaquin, and Bactrim. Wound culture grew MRSA. Patient was already on Cipro and Daptomycin. Dr. Kwong did not roving changer at that time. Freda Spence MD R1 Mar 03, 2017 16:01
--- NOTE | 2017-03-03 17:08 | EKG ---
Date Performed: 03/02/2017 Time Performed: 20:30:47 PTAGE: 41 years EKG: SINUS TACHYCARDIA NONSPECIFIC T-WAVE ABNORMALITY Since previous tracing, no significant hudson nge noted ABNORMAL RHYTHM ECG PREVIOUS TRACING : 04/11/2016 08.34 DOCTOR: Renata Pool Interpretating Date/Time 03/03/2017 17:07:02
--- NOTE | 2017-03-03 19:09 | PD.WCN.NOT ---
Wound Consult Description: Received consult for pressure ulcer to sacrum and L buttock from Doctor Marco Harris Communicated with: RN Shmuel Jj and Doctor Puja Sargent Resident for orders Recommendation: Please Cleanse wounds to L ischium and sacrum with normal saline. Apply 1/4 strength or 0.125% Dakin's moistened gauze packed in to wound beds and cover with dry cover dressing until seen by infectious disease. If OK with infectious disease resume wound VAC to L ischium and sacral wounds as previously ordered for Home health care. Please order VAC from [facility] for use in hospital. Switch patient to home VAC when discharged. Additional Information: Patient seen on for pressure ulcer evaluation of sacrum and L buttock. Patient is laying on K 4 bed from [facility] is paraplegic. Wounds on sacrum and L ischium have been treated out patient by wound VAC. Wound culture of buttock wound is positive for gram positive and gram negative rods. Also rare gram positive cocci. Patient able to turn himself with minimal assist to R side for wound assessment.Removed dressings in place to reveal stage 4 pressure injury to L ischium and healing stage 4 pressure injury to sacrum. Wounds appear clean with 100% clean red granulation tissue to sacral wound. L ischial wound presents with ~80% clean red granulation tissue and ~20% muscle tissue noted at the base.Both wounds have minimal sero-sanguinous drainage that are without odor.Wound to sacrum measures 2cm x 2cm x 1cm. L ischial wound measures 4cm x 9.1cm x 5 cm. Periwound are unremarkable. Cleansed wounds with 30ml of normal saline. Packed L ischial wound with saline moistened gauze and covered with bordered gauze. Applied dry cover dressing over sacral wound. Skin prep was applied periwound before applying dressings. Dressings recommended noted above. Bed was lowered to a safe height and patient repositioned self in bed for comfort. Neg Pressure Wound Therapy Wound Location Wound Location: Received consult for pressure ulcer to sacrum and L buttock from [facility] Mar 03, 2017 19:09
[2017-03-03] MEDS: traZODone HCL 50 MG TAB PO SCH (21:30)
[2017-03-03] MEDS: AMITRIPTYLINE HCL 50 MG TAB PO SCH (21:30)
[2017-03-03] MEDS: ZOLPIDEM TARTRATE 10 MG TAB PO PRN (23:38)
[2017-03-04] MEDS: HYDROmorphone HCL PF 1 MG/ML VIAL IV PUSH PRN ×5 (00:50→21:04)
[2017-03-04] MEDS: PIPERACIL-TAZO 3.375 GM PREMIX 50 ML IV SCH ×4 (03:43→21:04)
[2017-03-04] MEDS: ACETAMINOPHEN/HYDROcodone 325 MG/10 MG TAB PO PRN ×4 (06:35→23:16)
[2017-03-04] MEDS: SODIUM CHLOR 0.9% 1000 ML INJ 1,000 ML IV SCH ×2 (06:35→18:05)
[2017-03-04] MEDS: ALPRAZolam 1 MG TAB PO PRN ×2 (06:35→23:16)
[2017-03-04 08:00] VITALS: BP 121/53; PULSE 84; RESP 18; TEMP 96.8; O2SAT 93
[2017-03-04] MEDS: PARoxetine HCL 20 MG TAB PO SCH (08:21)
[2017-03-04] MEDS: FUROSEMIDE 40 MG TAB PO SCH (08:22)
[2017-03-04] MEDS: GABAPENTIN 400 MG CAP PO SCH ×4 (08:22→21:04)
[2017-03-04] MEDS: PANTOPRAZOLE SOD 40 MG DELAYED RELEASE TAB PO SCH (08:23)
[2017-03-04] MEDS: SODIUM CHLORIDE 0.9% FLUSH 10 ML FLUSH IV FLUSH SCH ×2 (08:24→21:00)
--- NOTE | 2017-03-04 08:40 | HHI.FPPN ---
Subjective Remarks Patient was seen and evaluated this morning. Patient feels better overall. Slept well overnight. Patient denies chest pain, heart palpitations, shortness of breath, nausea/vomiting, diarrhea and constipation. All questions were answered. (Freda Spence MD R1) Objective Vitals Vital Signs Date Time Temp Pulse Resp B/P (MAP) Pulse Ox O2 Delivery O2 Flow Rate FiO2 03/03/17 23:36 97.7 120/57 (78) 03/03/17 20:00 97.2 88 20 110/67 (81) 93 03/03/17 19:04 18 03/03/17 18:08 18 03/03/17 16:00 96.9 90 17 117/63 (81) 98 03/03/17 12:00 96.2 88 17 103/56 (72) 96 I/O 03/03/17 03/03/17 03/03/17 03/04/17 03/04/17 03/04/17 07:00 15:00 23:00 07:00 15:00 23:00 Intake Total 1290 ml 1200 ml 480 ml Output Total 1950 ml 2950 ml 3250 ml Balance -660 ml -1750 ml -2770 ml Intake Oral 240 ml 1200 ml 480 ml IV Total 1050 ml Output Urine Total 1950 ml 2950 ml 3250 ml # Bowel Movements 0 1 1 (Freda Spence MD R1) Result Diagram: 03/03/17 0647 03/03/17 0647 Imaging Last Impressions Chest X-Ray 03/02/17 1813 Signed Impressions: Service Date/Time: February 18:19 - CONCLUSION: Stable areas of suspected pleural scarring at the left lateral base and minimally at the right base. A new or acute abnormality is not clearly seen. Shmuel Jason MD Objective Remarks GENERAL: This is a well-nourished, well-developed patient, in no apparent/ respiratory distress. SKIN: 4-5 cm diameter ulcer of the left sacrum, skin breakdown of the surrounding area observed. Another larger ulcer of the left lower buttock (9 cm x 4 cm x 3cm) that penetrates to muscle layer. No drainage or necrosis observed. HEAD: Atraumatic. Normocephalic. EYES: Pupils equal round. Extraocular motions intact. No scleral icterus. No injection or drainage. NECK: Trachea midline. CARDIOVASCULAR: Regular rate and rhythm without murmurs, gallops, or rubs. RESPIRATORY: Clear to auscultation. Breath sounds equal bilaterally. No wheezes , rales, or rhonchi. GASTROINTESTINAL: Abdomen soft, non-tender, nondistended. Ostomy bag in the RUQ. MUSCULOSKELETAL: No erythema or swelling of the extremities. NEUROLOGICAL: Awake and alert. No motor strength or sensation of the lower extremities. Normal speech. Medications and IVs Current Medications Medications (Trade) Dose Ordered Sig/Jennifer Route Start Time Stop Time Status Last Admin (NS Flush) 2 ml UNSCH PRN IV FLUSH 03/02/17 22:45 (NS Flush) 2 ml BID IV FLUSH 03/03/17 09:00 03/04/17 08:24 (Tylenol) 650 mg Q4H PRN PO 03/02/17 22:45 (Lovenox Inj) 40 mg Q24H SQ 03/02/17 23:00 03/03/17 21:34 (Narcan Inj) 0.4 mg UNSCH PRN IV PUSH 03/02/17 22:45 (Milk Of Magnesia Liq) 30 ml Q12H PRN PO 03/02/17 22:45 (Senokot) 17.2 mg Q12H PRN PO 03/02/17 22:45 (Lactulose Liq) 30 ml DAILY PRN PO 03/02/17 22:45 Piperacillin Sod/ Tazobactam Sod 50 ml @ 100 mls/hr Q6H IV 03/03/17 03:00 03/04/17 09:00 Sodium Chloride 1,000 ml @ 150 mls/hr Q6H40M IV 03/02/17 23:00 03/04/17 06:35 (Dilaudid Pf Inj) 1 mg Q3H PRN IV PUSH 03/02/17 22:45 03/04/17 08:21 (Xanax) 1 mg QID PRN PO 03/02/17 23:30 03/04/17 06:35 (Elavil) 50 mg HS PO 03/03/17 21:00 03/03/17 21:30 (Lasix) 40 mg DAILY PO 03/03/17 09:00 03/04/17 08:22 (Neurontin) 800 mg QID PO 03/03/17 09:00 03/04/17 08:22 (Paxil) 20 mg DAILY PO 03/03/17 09:00 03/04/17 08:21 (Ambien) 10 mg HS PRN PO 03/02/17 23:00 03/03/17 23:38 (Protonix) 40 mg DAILY PO 03/03/17 09:00 03/04/17 08:23 (Desyrel) 150 mg HS PO 03/03/17 21:00 03/03/17 21:30 ([place] 5-325 Mg) 1 tab Q4H PRN PO 03/03/17 08:45 ([place] 10-325 Mg) 1 tab Q4H PRN PO 03/03/17 08:45 03/04/17 06:35 (Dakin'S 0.125% Soln) 500 ml BID TOPICAL 03/03/17 14:00 03/03/17 21:33 (Freda Spence MD R1) A/P Assessment and Plan Patient is a 41 year old male with a history of paraplegia admitted for treatment of sepsis 05/05 to UTI vs other cause. Other possible contributory sources include sacral wound, PICC line site, or ostomy site. (Freda Spence MD R1) Attending Attestation Patient seen and examined. Case reviewed and discussed with the resident team. Agree with plan of care as discussed with me and documented in the resident note. appreciate help of ID. He has had so many infections. he was not happy that his wound took 8 months so far to start to heal his sacral wounds. He did have osteo which makes it difficult to heal. (Sherry Contreras MD) Problem List: (1) Sepsis ICD Codes: A41.9 - Sepsis, unspecified organism Status: Acute Plan: On admission, T 103.1, tachycardic; UA + for LE and bacteria; hx of treatment with dapto and cipro Clinically improving today. Differential diagnosis: * Source of infection: PICC line versus UTI versus sacral ulcer Labs: * WBC: 2.5 (03/04) <- 6.2 (03/03) * Lactic Acid: 2.3 (03/02) <- 3.1 (03/02) Microbiology: * Blood culture: Gram negative venkat; proteus species. * Wound culture: Gram negative venkat. * Urine culture: Mixed neri. * New blood cultures ordered 03/03. Imaging: * Chest X-ray: Stable areas of suspected pleural scarring at the left lateral base and minimally at the right base. A new acute abnormality is not clearly seen. Orders/Medications: * ID consult: Ordered new blood culture, discontinued vancomycin, agreed with Zosyn management. * Wound care consult: Please cleanse wounds to L ischium and sacrum with normal saline. Apply 1/4 strength or 0.125% Dakin's moistened gauze packed in to wound beds and cover with dry cover dressing until seen by infectious disease. If OK with infectious disease resume wound VAC to L ischium and sacral wounds as previously ordered for Home health care. Please order VAC from [facility] for use in hospital. Switch patient to home VAC when discharged. * PICC line removed on 03/03. * Hilton exchanged in ED on 03/02. * Zosyn 50 ml at 100 mls/hr q6hr IV. * NS 1,000 ml at 150 mls/hr. (2) UTI (lower urinary tract infection) ICD Codes: N39.0 - Urinary tract infection, site not specified Status: Chronic Plan: See Plan for Sepsis. (3) Pressure ulcer ICD Codes: L89.90 - Decubitus ulcer Status: Chronic Plan: See Plan for Sepsis. (4) Anemia ICD Codes: D64.9 - Anemia, unspecified Status: Acute Plan: Stable. Suspicion for iron deficiency due to malnutrition as patient states he only eats one meal/day. No current suspicion for blood loss. Labs: * Hgb: 9.8 (03/03) <- 9.8 (03/02) * Hct: 32.5 (03/04) <- 31.2 (03/02) * Iron: 11L * TIBC: 249L * % Saturation: 4.4L * Ferritin: 30 Orders: * Daily CBC. (5) Hypokalemia ICD Codes: E87.6 - Hypokalemia Plan: Resolved. Labs: * K: 4.4 (03/04) <- 3.1 (03/02) Imaging: * EKG shows no QRS or T wave changes. 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 * [place] 5 q4hr PO PRN Pain 1-5. * [place] 10 q4hr PO PRN Pain 6-10. * Dilaudid 1 mg q3hr IV PRN Breakthrough pain. (7) Neurogenic bladder ICD Codes: N31.9 - Neurogenic bladder Status: Chronic Plan: Currently Hilton in place. Monitor I/Os (8) Depression ICD Codes: F32.9 - Major depressive disorder, single episode, unspecified Status: Chronic Plan: Continue home Amitriptyline 50 mg PO HS, Paxil 20 mg PO daily, and trazodone 150 mg PO HS. (9) Anxiety ICD Codes: F41.9 - Anxiety disorder, unspecified Status: Chronic Plan: Continue home Alprazolam 1 mg PO QID PRN. (10) GERD (gastroesophageal reflux disease) ICD Codes: K21.9 - Gastro-esophageal reflux disease without esophagitis Status: Chronic Plan: Protonix 40 mg PO daily (11) FEN Plan: Fluids: * NS 1,000 ml at 150 mls/hr. Electrolytes: * Monitor and replete as necessary. Nutrition: * Regular diet. GI prophy: * Protonix 40 mg PO. DVT prophy: * Lovenox SQ daily. (Freda Spence MD R1) Problem Qualifiers (1) Sepsis: Qualified Codes: A41.9 - Sepsis, unspecified organism (2) Pressure ulcer: Qualified Codes: L89.154 - Pressure ulcer of sacral region, stage 4 (3) Anemia: Qualified Codes: D64.9 - Anemia, unspecified (4) Depression: Qualified Codes: F32.9 - Major depressive disorder, single episode, unspecified (5) GERD (gastroesophageal reflux disease): Qualified Codes: K21.9 - Gastro-esophageal reflux disease without esophagitis Freda Spence MD R1 Mar 04, 2017 08:40 Sherry Contreras MD Mar 04, 2017 16:41
[2017-03-04 10:59] LABS: HEMATOCRIT 31.7 % (39.0-51.0); MEAN CELL VOLUME 69.2 FL (80.0-100.0); MEAN CORPUSCULAR HEMOGLOBIN 20.6 PG (27.0-34.0); PLATELET COUNT 252 TH/MM3 (150-450); RED BLOOD COUNT 4.58 MIL/MM3 (4.50-5.90); RED CELL DISTRIBUTION WIDTH 17.5 % (11.6-17.2); REVIEW FLAG FINAL; WHITE BLOOD COUNT 2.5 TH/MM3 (4.0-11.0)
[2017-03-04 11:01] LABS: MEAN CORPUSCULAR HGB CONC 29.8 % (32.0-36.0)
[2017-03-04 11:17] LABS: BICARBONATE 33.5 MEQ/L (21.0-32.0); POTASSIUM 4.1 MEQ/L (3.5-5.1)
[2017-03-04 11:52] VITALS: BP 101/54; PULSE 67; RESP 19; TEMP 96.1; O2SAT 93
[2017-03-04] MEDS: SODIUM HYPOCHLORITE 0.125% 500 ML BTL TOPICAL SCH (14:48)
[2017-03-04 16:00] VITALS: BP 108/62; PULSE 85; RESP 19; TEMP 96.8; O2SAT 97
[2017-03-04] MEDS ORDERED: Vancomycin Consult Pharmacy 1 EA OTHER SCH (17:00)
[2017-03-04] MEDS ORDERED: VANCOMYCIN INJ 1,250 MG in SODIUM CHLOR 0.9% 250 ML INJ 250 ML IV SCH (18:00)
[2017-03-04 20:00] VITALS: BP 133/63; PULSE 86; RESP 18; TEMP 97.5; O2SAT 97
[2017-03-04] MEDS: AMITRIPTYLINE HCL 50 MG TAB PO SCH (21:04)
[2017-03-04] MEDS: traZODone HCL 50 MG TAB PO SCH (21:04)
[2017-03-04] MEDS: ENOXAPARIN SODIUM 40 MG/0.4 ML SYRINGE SQ SCH (21:07)
[2017-03-04] MEDS: ZOLPIDEM TARTRATE 10 MG TAB PO PRN (23:16)
[2017-03-05] MEDS: HYDROmorphone HCL PF 1 MG/ML VIAL IV PUSH PRN ×7 (00:11→23:17)
[2017-03-05] MEDS: SODIUM HYPOCHLORITE 0.125% 500 ML BTL TOPICAL SCH ×2 (00:51→10:34)
[2017-03-05] MEDS: PIPERACIL-TAZO 3.375 GM PREMIX 50 ML IV SCH ×4 (04:31→19:45)
[2017-03-05] MEDS: VANCOMYCIN INJ 2,000 MG in SODIUM CHLORID 0.9% 500 ML INJ 500 ML IV SCH ×2 (04:31→18:18)
[2017-03-05] MEDS: SODIUM CHLOR 0.9% 1000 ML INJ 1,000 ML IV SCH ×2 (06:51→23:18)
[2017-03-05] MEDS: ACETAMINOPHEN/HYDROcodone 325 MG/10 MG TAB PO PRN ×4 (06:52→20:49)
[2017-03-05] MEDS: SODIUM CHLORIDE 0.9% FLUSH 10 ML FLUSH IV FLUSH SCH ×2 (07:33→19:49)
[2017-03-05 08:00] VITALS: BP 101/53; PULSE 75; RESP 18; TEMP 96.1; O2SAT 93
[2017-03-05] MEDS: PANTOPRAZOLE SOD 40 MG DELAYED RELEASE TAB PO SCH (08:48)
[2017-03-05] MEDS: PARoxetine HCL 20 MG TAB PO SCH (08:48)
[2017-03-05] MEDS: GABAPENTIN 400 MG CAP PO SCH ×4 (08:48→19:45)
[2017-03-05] MEDS: FUROSEMIDE 40 MG TAB PO SCH (08:49)
--- NOTE | 2017-03-05 11:02 | HHI.FPPN ---
Subjective Remarks Mr Thurston is feeling much better than on admission. He is still concerned about his sacral decubiti and all the infections he has had. When asked about sensation below his waist, he denied he can feel his ulcer but did state he will get "hip pain that doubles him over at home" intermittently. He denied any other problems and was rolled over on his right side this am. He denied other complaints. Objective Vitals Vital Signs Date Time Temp Pulse Resp B/P (MAP) Pulse Ox O2 Delivery O2 Flow Rate FiO2 03/05/17 08:00 96.1 75 18 101/53 (69) 93 03/05/17 07:52 18 03/05/17 07:52 18 03/04/17 20:00 97.5 86 18 133/63 (86) 97 03/04/17 16:00 96.8 85 19 108/62 (77) 97 03/04/17 11:52 96.1 67 19 101/54 (70) 93 I/O 03/04/17 03/04/17 03/04/17 03/05/17 03/05/17 03/05/17 07:00 15:00 23:00 07:00 15:00 23:00 Intake Total 480 ml 1477 ml 800 ml Output Total 3250 ml 2250 ml 750 ml Balance -2770 ml -773 ml 50 ml Intake Oral 480 ml 650 ml IV Total 827 ml 800 ml Output Urine Total 3250 ml 2000 ml 750 ml Stool Total 250 ml # Bowel Movements 1 Result Diagram: 03/04/17 1028 03/04/17 1028 Objective Remarks GENERAL: This is a well-nourished, well-developed patient, in no apparent/ respiratory distress rolled over on his side and comfortable this am. SKIN: 4-5 cm diameter ulcer of the left sacrum, skin breakdown of the surrounding area observed. Another larger ulcer of the left lower buttock (9 cm x 4 cm x 3cm) that penetrates to muscle layer. No drainage or necrosis observed. there is good granulation tissue that is beefy red and no exudates for each wound with the smaller one being more shallow HEAD: Atraumatic. Normocephalic. EYES: Pupils equal round. Extraocular motions intact. No scleral icterus. No injection or drainage. NECK: Trachea midline. CARDIOVASCULAR: Regular rate and rhythm without murmurs, gallops, or rubs. RESPIRATORY: Clear to auscultation. Breath sounds equal bilaterally. No wheezes , rales, or rhonchi. GASTROINTESTINAL: Abdomen soft, non-tender, nondistended. Ostomy bag in the RUQ. MUSCULOSKELETAL: No erythema or swelling of the extremities. NEUROLOGICAL: Awake and alert. No motor strength or sensation of the lower extremities. Normal speech. Urinary Catheter: No Vascular Central Line Catheter: No A/P Assessment and Plan Patient is a 41 year old male with a history of paraplegia admitted for treatment of sepsis 2/2 to UTI vs other cause. Other possible contributory sources include sacral wound, PICC line site, or ostomy site. Problem List: (1) Sepsis ICD Codes: A41.9 - Sepsis, unspecified organism Status: Acute Plan: On admission, T 103.1, pt reports he was 105 at home, tachycardic; UA + for LE and bacteria; hx of treatment with dapto and cipro Clinically improving today. Differential diagnosis: * Source of infection: PICC line versus UTI versus sacral ulcer Labs: * WBC: 2.5 (03/04) <- 6.2 (03/03) * Lactic Acid: 2.3 (03/02) <- 3.1 (03/02) Microbiology: * Blood culture: proteus species x 2. * Wound culture: enterococcus, MRSA, and proteus. could be in the wound but not all causing infection as the wound does not have any obvious abscess or pus. The wounds appear clean today * Urine culture: Mixed neri. * New blood cultures ordered 03/03 no growth so far. Imaging: * Chest X-ray: Stable areas of suspected pleural scarring at the left lateral base and minimally at the right base. A new acute abnormality is not clearly seen. Orders/Medications: * ID consult: Ordered new blood culture, discontinued vancomycin but now restarted, agreed with Zosyn management. * Wound care consult: Please cleanse wounds to L ischium and sacrum with normal saline. Apply 1/4 strength or 0.125% Dakin's moistened gauze packed in to wound beds and cover with dry cover dressing. resume wound VAC to L ischium and sacral wounds as previously ordered for Home health care. Please order VAC from [facility] for use in hospital. Switch patient to home VAC when discharged. * PICC line removed on 03/03. no growth so far but it was old and needed to be removed with his bacteremia * Hilton exchanged in ED on 03/02. * Zosyn 50 ml at 100 mls/hr q6hr IV. * NS 1,000 ml at 150 mls/hr. (2) UTI (lower urinary tract infection) ICD Codes: N39.0 - Urinary tract infection, site not specified Status: Chronic Plan: See Plan for Sepsis. (3) Pressure ulcer ICD Codes: L89.90 - Decubitus ulcer Status: Chronic Plan: See Plan for Sepsis. (4) Anemia ICD Codes: D64.9 - Anemia, unspecified Status: Acute Plan: Stable. Suspicion for iron deficiency due to malnutrition as patient states he only eats one meal/day. No current suspicion for blood loss. Labs: * Hgb: 9.8 (03/03) <- 9.8 (03/02) * Hct: 32.5 (03/04) <- 31.2 (03/02) * Iron: 11L * TIBC: 249L * % Saturation: 4.4L * Ferritin: 30 Orders: * will start low dose po FE as tolerated. he did have surgery in the past and likely lost blood with those. can consider GI workup if he is heme positive in his stool (5) Hypokalemia ICD Codes: E87.6 - Hypokalemia Plan: Resolved. Labs: * K: 4.4 (03/04) <- 3.1 (03/02) Imaging: * EKG shows no QRS or T wave changes. 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 * [place] 5 q4hr PO PRN Pain 1-5. * [place] 10 q4hr PO PRN Pain 6-10. * Dilaudid 1 mg q3hr IV PRN Breakthrough pain. (7) Neurogenic bladder ICD Codes: N31.9 - Neurogenic bladder Status: Chronic Plan: Currently Hilton in place. Monitor I/Os (8) Depression ICD Codes: F32.9 - Major depressive disorder, single episode, unspecified Status: Chronic Plan: Continue home Amitriptyline 50 mg PO HS, Paxil 20 mg PO daily, and trazodone 150 mg PO HS. (9) Anxiety ICD Codes: F41.9 - Anxiety disorder, unspecified Status: Chronic Plan: Continue home Alprazolam 1 mg PO QID PRN. (10) GERD (gastroesophageal reflux disease) ICD Codes: K21.9 - Gastro-esophageal reflux disease without esophagitis Status: Chronic Plan: Protonix 40 mg PO daily (11) FEN Plan: Fluids: * NS 1,000 ml at 150 mls/hr. Electrolytes: * Monitor and replete as necessary. Nutrition: * Regular diet. GI prophy: * Protonix 40 mg PO. DVT prophy: * Lovenox SQ daily. (12) WBC decreased ICD Codes: D72.819 - Decreased white blood cell count, unspecified Status: Acute Plan: unsure if this is from his sepsis, if so, it should start to improve as he has improved clinically on review of his old records, he never had a WBC this low. clinically, he is not having fevers and feels well so far his WBC is stable. It could be from meds even abx. He may need to have his meds changed. Problem Qualifiers (1) Sepsis: Qualified Codes: A41.9 - Sepsis, unspecified organism (2) Pressure ulcer: Qualified Codes: L89.154 - Pressure ulcer of sacral region, stage 4 (3) Anemia: Qualified Codes: D50.9 - Iron deficiency anemia, unspecified (4) Depression: Qualified Codes: F32.9 - Major depressive disorder, single episode, unspecified (5) GERD (gastroesophageal reflux disease): Qualified Codes: K21.9 - Gastro-esophageal reflux disease without esophagitis (6) WBC decreased: Qualified Codes: D72.810 - Lymphocytopenia Sherry Contreras MD Mar 05, 2017 11:02
[2017-03-05 12:00] VITALS: BP 104/51; PULSE 81; RESP 19; TEMP 96.8; O2SAT 95
[2017-03-05] MEDS: ALPRAZolam 1 MG TAB PO PRN (12:03)
[2017-03-05 13:32] LABS: HEMATOCRIT 32.7 % (39.0-51.0); MEAN CELL VOLUME 69.5 FL (80.0-100.0); MEAN CORPUSCULAR HEMOGLOBIN 20.9 PG (27.0-34.0); MEAN CORPUSCULAR HGB CONC 30.1 % (32.0-36.0); PLATELET COUNT 258 TH/MM3 (150-450); RED BLOOD COUNT 4.71 MIL/MM3 (4.50-5.90); RED CELL DISTRIBUTION WIDTH 16.9 % (11.6-17.2); REVIEW FLAG FINAL; WHITE BLOOD COUNT 3.2 TH/MM3 (4.0-11.0)
[2017-03-05 13:56] LABS: BICARBONATE 34.3 MEQ/L (21.0-32.0); POTASSIUM 3.6 MEQ/L (3.5-5.1)
[2017-03-05] MEDS: MULTIVITAMINS/IRON/MINERALS CHEWABLE TAB CHEW SCH (14:14)
[2017-03-05 16:00] VITALS: BP 113/62; PULSE 86; RESP 19; TEMP 97.2; O2SAT 97
[2017-03-05] MEDS ORDERED: PHARMACY ORDERED LAB ONE (17:45)
[2017-03-05] MEDS: AMITRIPTYLINE HCL 50 MG TAB PO SCH (19:45)
[2017-03-05] MEDS: traZODone HCL 50 MG TAB PO SCH (19:45)
[2017-03-05] MEDS: ENOXAPARIN SODIUM 40 MG/0.4 ML SYRINGE SQ SCH (19:46)
[2017-03-05 20:00] VITALS: BP 109/67; PULSE 71; RESP 18; TEMP 97.6; O2SAT 97
[2017-03-06 00:40] VITALS: BP 113/63; PULSE 70; RESP 18; TEMP 97.5; O2SAT 97
[2017-03-06] MEDS: ZOLPIDEM TARTRATE 10 MG TAB PO PRN (01:14)
[2017-03-06] MEDS: ALPRAZolam 1 MG TAB PO PRN ×3 (01:14→17:50)
[2017-03-06] MEDS: ACETAMINOPHEN/HYDROcodone 325 MG/10 MG TAB PO PRN ×5 (01:15→20:58)
[2017-03-06] MEDS: SODIUM HYPOCHLORITE 0.125% 500 ML BTL TOPICAL SCH ×2 (01:16→21:00)
[2017-03-06] MEDS: HYDROmorphone HCL PF 1 MG/ML VIAL IV PUSH PRN ×5 (02:26→20:58)
[2017-03-06] MEDS: PIPERACIL-TAZO 3.375 GM PREMIX 50 ML IV SCH ×4 (04:12→20:58)
[2017-03-06] MEDS: VANCOMYCIN INJ 2,000 MG in SODIUM CHLORID 0.9% 500 ML INJ 500 ML IV SCH ×2 (07:43→17:46)
[2017-03-06 08:00] VITALS: BP 94/50; PULSE 81; RESP 18; TEMP 96.7; O2SAT 94
[2017-03-06 08:18] LABS: AUTOMATED NEUTROPHIL # 1.8 TH/MM3 (1.8-7.7); EOSINOPHIL # 0.1 TH/MM3 (0-0.4); EOSINOPHIL % 3.8 % (0.0-4.0); HEMO FLAGS DIFF FINAL; LYMPH % 45.7 % (9.0-44.0); LYMPHOCYTE # 1.8 TH/MM3 (1.0-4.8); MEAN CELL VOLUME 69.2 FL (80.0-100.0); MEAN CORPUSCULAR HEMOGLOBIN 20.8 PG (27.0-34.0); MONO % 3.8 % (0.0-8.0); NEUT % 45.7 % (16.0-70.0); PLATELET COUNT 282 TH/MM3 (150-450); RED BLOOD COUNT 4.49 MIL/MM3 (4.50-5.90); RED CELL DISTRIBUTION WIDTH 17.1 % (11.6-17.2); WHITE BLOOD COUNT 3.9 TH/MM3 (4.0-11.0)
[2017-03-06 08:47] LABS: POTASSIUM 3.9 MEQ/L (3.5-5.1)
[2017-03-06 08:50] LABS: VANCOMYCIN TROUGH 19.2 MCG/ML (5.0-10.0)
[2017-03-06] MEDS: FUROSEMIDE 40 MG TAB PO SCH (09:12)
[2017-03-06] MEDS: MULTIVITAMINS/IRON/MINERALS CHEWABLE TAB CHEW SCH (09:13)
[2017-03-06] MEDS: PANTOPRAZOLE SOD 40 MG DELAYED RELEASE TAB PO SCH (09:13)
[2017-03-06] MEDS: GABAPENTIN 400 MG CAP PO SCH ×4 (09:13→20:59)
[2017-03-06] MEDS: PARoxetine HCL 20 MG TAB PO SCH (09:14)
[2017-03-06] MEDS: SODIUM CHLORIDE 0.9% FLUSH 10 ML FLUSH IV FLUSH SCH ×2 (09:14→21:01)
--- NOTE | 2017-03-06 10:07 | HHI.FPPN ---
Objective Vitals Vital Signs Date Time Temp Pulse Resp B/P (MAP) Pulse Ox O2 Delivery O2 Flow Rate FiO2 03/06/17 08:00 96.7 81 18 94/50 (65) 94 03/06/17 00:40 97.5 70 18 113/63 (80) 97 03/05/17 20:00 97.6 71 18 109/67 (81) 97 03/05/17 17:05 18 03/05/17 17:05 18 03/05/17 16:00 97.2 86 19 113/62 (79) 97 03/05/17 12:00 96.8 81 19 104/51 (68) 95 I/O 03/05/17 03/05/17 03/05/17 03/06/17 03/06/17 03/06/17 07:00 15:00 23:00 07:00 15:00 23:00 Intake Total 800 ml 1300 ml 750 ml Output Total 750 ml 1700 ml 1425 ml Balance 50 ml -400 ml -675 ml Intake Oral 1300 ml IV Total 800 ml 750 ml Output Urine Total 750 ml 1700 ml 1425 ml Result Diagram: 03/06/17 0711 03/06/17 0711 Objective Remarks GENERAL: This is a well-nourished, well-developed patient, in no apparent/ respiratory distress rolled over on his side and comfortable this am. SKIN: 4-5 cm diameter ulcer of the left sacrum, skin breakdown of the surrounding area observed. Another larger ulcer of the left lower buttock (9 cm x 4 cm x 3cm) that penetrates to muscle layer. No drainage or necrosis observed. there is good granulation tissue that is beefy red and no exudates for each wound with the smaller one being more shallow HEAD: Atraumatic. Normocephalic. EYES: Pupils equal round. Extraocular motions intact. No scleral icterus. No injection or drainage. NECK: Trachea midline. CARDIOVASCULAR: Regular rate and rhythm without murmurs, gallops, or rubs. RESPIRATORY: Clear to auscultation. Breath sounds equal bilaterally. No wheezes , rales, or rhonchi. GASTROINTESTINAL: Abdomen soft, non-tender, nondistended. Ostomy bag in the RUQ. MUSCULOSKELETAL: No erythema or swelling of the extremities. NEUROLOGICAL: Awake and alert. No motor strength or sensation of the lower extremities. Normal speech. A/P Assessment and Plan Patient is a 41 year old male with a history of paraplegia admitted for treatment of sepsis 2/2 to UTI vs other cause. Other possible contributory sources include sacral wound, PICC line site, or ostomy site. Problem List: (1) Sepsis ICD Codes: A41.9 - Sepsis, unspecified organism Status: Acute Plan: On admission, T 103.1, pt reports he was 105 at home, tachycardic; UA + for LE and bacteria; hx of treatment with dapto and cipro Clinically improving today. Differential diagnosis: * Source of infection: PICC line versus UTI versus sacral ulcer Labs: * WBC: 2.5 (03/04) <- 6.2 (03/03) * Lactic Acid: 2.3 (03/02) <- 3.1 (03/02) Microbiology: * Blood culture: proteus species x 2. * Wound culture: enterococcus, MRSA, and proteus. could be in the wound but not all causing infection as the wound does not have any obvious abscess or pus. The wounds appear clean today * Urine culture: Mixed neri. * New blood cultures ordered 03/03 no growth so far. Imaging: * Chest X-ray: Stable areas of suspected pleural scarring at the left lateral base and minimally at the right base. A new acute abnormality is not clearly seen. Orders/Medications: * ID consult: Ordered new blood culture, discontinued vancomycin but now restarted, agreed with Zosyn management. * Wound care consult: Please cleanse wounds to L ischium and sacrum with normal saline. Apply 1/4 strength or 0.125% Dakin's moistened gauze packed in to wound beds and cover with dry cover dressing. resume wound VAC to L ischium and sacral wounds as previously ordered for Home health care. Please order VAC from [facility] for use in hospital. Switch patient to home VAC when discharged. * PICC line removed on 03/03. no growth so far but it was old and needed to be removed with his bacteremia * Hilton exchanged in ED on 03/02. * Zosyn 50 ml at 100 mls/hr q6hr IV. * NS 1,000 ml at 150 mls/hr. (2) UTI (lower urinary tract infection) ICD Codes: N39.0 - Urinary tract infection, site not specified Status: Chronic Plan: See Plan for Sepsis. (3) Pressure ulcer ICD Codes: L89.90 - Decubitus ulcer Status: Chronic Plan: See Plan for Sepsis. (4) Anemia ICD Codes: D64.9 - Anemia, unspecified Status: Acute Plan: Stable. Suspicion for iron deficiency due to malnutrition as patient states he only eats one meal/day. No current suspicion for blood loss. Labs: * Hgb: 9.8 (03/03) <- 9.8 (03/02) * Hct: 32.5 (03/04) <- 31.2 (03/02) * Iron: 11L * TIBC: 249L * % Saturation: 4.4L * Ferritin: 30 Orders: * will start low dose po FE as tolerated. he did have surgery in the past and likely lost blood with those. can consider GI workup if he is heme positive in his stool (5) Hypokalemia ICD Codes: E87.6 - Hypokalemia Plan: Resolved. Labs: * K: 4.4 (03/04) <- 3.1 (03/02) Imaging: * EKG shows no QRS or T wave changes. 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 * [place] 5 q4hr PO PRN Pain 1-5. * [place] 10 q4hr PO PRN Pain 6-10. * Dilaudid 1 mg q3hr IV PRN Breakthrough pain. (7) Neurogenic bladder ICD Codes: N31.9 - Neurogenic bladder Status: Chronic Plan: Currently Hilton in place. Monitor I/Os (8) Depression ICD Codes: F32.9 - Major depressive disorder, single episode, unspecified Status: Chronic Plan: Continue home Amitriptyline 50 mg PO HS, Paxil 20 mg PO daily, and trazodone 150 mg PO HS. (9) Anxiety ICD Codes: F41.9 - Anxiety disorder, unspecified Status: Chronic Plan: Continue home Alprazolam 1 mg PO QID PRN. (10) GERD (gastroesophageal reflux disease) ICD Codes: K21.9 - Gastro-esophageal reflux disease without esophagitis Status: Chronic Plan: Protonix 40 mg PO daily (11) FEN Plan: Fluids: * NS 1,000 ml at 150 mls/hr. Electrolytes: * Monitor and replete as necessary. Nutrition: * Regular diet. GI prophy: * Protonix 40 mg PO. DVT prophy: * Lovenox SQ daily. (12) WBC decreased ICD Codes: D72.819 - Decreased white blood cell count, unspecified Status: Acute Plan: unsure if this is from his sepsis, if so, it should start to improve as he has improved clinically on review of his old records, he never had a WBC this low. clinically, he is not having fevers and feels well so far his WBC is stable. It could be from meds even abx. He may need to have his meds changed. Problem Qualifiers (1) Sepsis: Qualified Codes: A41.9 - Sepsis, unspecified organism (2) Pressure ulcer: Qualified Codes: L89.154 - Pressure ulcer of sacral region, stage 4 (3) Anemia: Qualified Codes: D50.9 - Iron deficiency anemia, unspecified (4) Depression: Qualified Codes: F32.9 - Major depressive disorder, single episode, unspecified (5) GERD (gastroesophageal reflux disease): Qualified Codes: K21.9 - Gastro-esophageal reflux disease without esophagitis (6) WBC decreased: Qualified Codes: D72.810 - Lymphocytopenia Gunnar Gruber MD R2 Mar 06, 2017 10:07
--- NOTE | 2017-03-06 10:45 | HHI.FPPN ---
Subjective Remarks Patient seen and examined this morning. No acute events overnight per nursing report. Vital signs remain within normal limits on room air. Patient states that he is relieved that his repeat blood cultures are negative today. We informed him that wound care is planning for reapplication of his wound VAC for later today. Currently has no complaints and denies any fevers, chills, shortness of breath, chest, NVD, abdominal pain, or calf tenderness. (Gunnar Gruber MD R2) Objective Vitals Vital Signs Date Time Temp Pulse Resp B/P (MAP) Pulse Ox O2 Delivery O2 Flow Rate FiO2 03/06/17 08:00 96.7 81 18 94/50 (65) 94 03/06/17 00:40 97.5 70 18 113/63 (80) 97 03/05/17 20:00 97.6 71 18 109/67 (81) 97 03/05/17 17:05 18 03/05/17 17:05 18 03/05/17 16:00 97.2 86 19 113/62 (79) 97 03/05/17 12:00 96.8 81 19 104/51 (68) 95 I/O 03/05/17 03/05/17 03/05/17 03/06/17 03/06/17 03/06/17 07:00 15:00 23:00 07:00 15:00 23:00 Intake Total 800 ml 1300 ml 750 ml Output Total 750 ml 1700 ml 1425 ml Balance 50 ml -400 ml -675 ml Intake Oral 1300 ml IV Total 800 ml 750 ml Output Urine Total 750 ml 1700 ml 1425 ml (Gunnar Gruber MD R2) Result Diagram: 03/06/17 0711 03/06/17 0711 Objective Remarks GENERAL: This is a well-nourished, well-developed patient in no acute distress lying in bed. SKIN: 4-5 cm diameter ulcer of the left sacrum, skin breakdown of the surrounding area observed. Another larger ulcer of the left lower buttock (9 cm x 4 cm x 3cm) that penetrates to muscle layer. No drainage or necrosis observed. Good granulation tissue that is beefy red and no exudates for each wound with the smaller one being more shallow HEAD: Atraumatic. Normocephalic. MMM. No rhinorrhea. No visible LAD or JVD appreciated. EYES: EOMI. No injection or drainage. NECK: Trachea midline. CARDIOVASCULAR: Regular rate and rhythm without murmurs, gallops, or rubs. RESPIRATORY: Clear to auscultation bilaterally with no CRW. No increased work of breathing. GASTROINTESTINAL: Abdomen soft, non-tender, nondistended. Ostomy bag in the RUQ with appropriate output. No signs of breakdown or infection. MUSCULOSKELETAL: No erythema or swelling of the extremities. Patient wheelchair bound at baseline. NEUROLOGICAL: Nonfocal AAO 3. No motor strength or sensation of the lower extremities. Normal speech. (Gunnar Gruber MD R2) A/P Assessment and Plan Patient is a 41 year old male with a history of paraplegia admitted for treatment of sepsis 2/ to UTI vs other cause. Other possible contributory sources include sacral wound, PICC line site, or ostomy site. Discharge Planning Pending ID recommendations planned for 03/07 (Gunnar Gruber MD R2) Attending Attestation Patient seen and examined. Case reviewed and discussed with the resident team. Agree with plan of care as discussed with me and documented in the resident note. he is stable overall will watch for ID recs (Sherry Contreras MD) Problem List: (1) Sepsis ICD Codes: A41.9 - Sepsis, unspecified organism Status: Acute Plan: On admission, T 103.1, pt reports he was 105 at home, tachycardic; UA + for LE and bacteria; hx of treatment with dapto and cipro Clinically improving today. Differential diagnosis: * Source of infection: PICC line versus UTI versus sacral ulcer Labs: * WBC: 2.5 (03/04) <- 6.2 (03/03) * Lactic Acid: 2.3 (03/02) <- 3.1 (03/02) Microbiology: * Blood culture: proteus species x 2. * Wound culture: enterococcus, MRSA, and proteus. could be in the wound but not all causing infection as the wound does not have any obvious abscess or pus. The wounds appear clean today * Urine culture: Mixed neri. * New blood cultures ordered 03/03 no growth so far. Imaging: * Chest X-ray: Stable areas of suspected pleural scarring at the left lateral base and minimally at the right base. A new acute abnormality is not clearly seen. Orders/Medications: * ID consult: Ordered new blood culture, discontinued vancomycin but now restarted, agreed with Zosyn management. * Wound care consult: Please cleanse wounds to L ischium and sacrum with normal saline. Apply 1/4 strength or 0.125% Dakin's moistened gauze packed in to wound beds and cover with dry cover dressing. resume wound VAC to L ischium and sacral wounds as previously ordered for Home health care. Please order VAC from [facility] for use in hospital. Switch patient to home VAC when discharged. * PICC line removed on 03/03. no growth so far but it was old and needed to be removed with his bacteremia * Hilton exchanged in ED on 03/02. * Zosyn 50 ml at 100 mls/hr q6hr IV. (03/02- ) * Vancomycin, pharmacy consulted. (03/04- ) * NS 1,000 ml at 75 mls/hr. (2) UTI (lower urinary tract infection) ICD Codes: N39.0 - Urinary tract infection, site not specified Status: Chronic Plan: See Plan for Sepsis. (3) Pressure ulcer ICD Codes: L89.90 - Decubitus ulcer Status: Chronic Plan: See Plan for Sepsis. (4) Anemia ICD Codes: D64.9 - Anemia, unspecified Status: Acute Plan: Stable. Suspicion for iron deficiency due to malnutrition as patient states he only eats one meal/day. No current suspicion for blood loss. Labs: * Hgb: 9.8 (03/03) <- 9.8 (03/02) * Hct: 32.5 (03/04) <- 31.2 (03/02) * Iron: 11L * TIBC: 249L * % Saturation: 4.4L * Ferritin: 30 * Hemoccult: Positive 03/06 Orders: * Iron 2 tablets daily (5) Hypokalemia ICD Codes: E87.6 - Hypokalemia Plan: Resolved. Labs: * K: 4.4 (03/04) <- 3.1 (03/02) Imaging: * EKG shows no QRS or T wave changes. 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 * [place] 5 q4hr PO PRN Pain 1-5. * [place] 10 q4hr PO PRN Pain 6-10. * Dilaudid 1 mg q3hr IV PRN Breakthrough pain. (7) Neurogenic bladder ICD Codes: N31.9 - Neurogenic bladder Status: Chronic Plan: Currently Hilton in place. Monitor I/Os (8) Depression ICD Codes: F32.9 - Major depressive disorder, single episode, unspecified Status: Chronic Plan: Continue home Amitriptyline 50 mg PO HS, Paxil 20 mg PO daily, and trazodone 150 mg PO HS. (9) Anxiety ICD Codes: F41.9 - Anxiety disorder, unspecified Status: Chronic Plan: Continue home Alprazolam 1 mg PO QID PRN. (10) WBC decreased ICD Codes: D72.819 - Decreased white blood cell count, unspecified Status: Acute Plan: Possibly due to sepsis. Per chart review, patient without leukopenia before. Clinically well. Differential includes medication/antibiotic side effect or septic event. -Continue to monitor (11) GERD (gastroesophageal reflux disease) ICD Codes: K21.9 - Gastro-esophageal reflux disease without esophagitis Status: Chronic Plan: Protonix 40 mg PO daily (12) FEN Plan: Fluids: * NS 1,000 ml at 75 mls/hr. Electrolytes: * Monitor and replete as necessary. Nutrition: * Regular diet. GI prophy: * Protonix 40 mg PO. DVT prophy: * Lovenox SQ daily. (Gunnar Gruber MD R2) Problem Qualifiers (1) Sepsis: Qualified Codes: A41.9 - Sepsis, unspecified organism (2) Pressure ulcer: Qualified Codes: L89.154 - Pressure ulcer of sacral region, stage 4 (3) Anemia: Qualified Codes: D50.9 - Iron deficiency anemia, unspecified (4) Depression: Qualified Codes: F32.9 - Major depressive disorder, single episode, unspecified (5) WBC decreased: Qualified Codes: D72.810 - Lymphocytopenia (6) GERD (gastroesophageal reflux disease): Qualified Codes: K21.9 - Gastro-esophageal reflux disease without esophagitis Gunnar Gruber MD R2 Mar 06, 2017 10:44 Sherry Contreras MD Mar 09, 2017 11:58
[2017-03-06 12:00] VITALS: BP 110/57; PULSE 81; RESP 18; TEMP 97.6; O2SAT 95
[2017-03-06] MEDS: SODIUM CHLOR 0.9% 1000 ML INJ 1,000 ML IV SCH ×2 (15:52→21:05)
[2017-03-06 16:00] VITALS: BP 114/66; PULSE 86; RESP 18; TEMP 98.1; O2SAT 93
--- NOTE | 2017-03-06 16:59 | ECHRPT ---
Indication: sepsis- endocarditis CONCLUSIONS Normal left ventricular size. Wall thickness is normal. The left ventricular systolic function is mildly reduced with an estimated ejection fraction in the range of 45- 50%. There is trace tricuspid valve regurgitation. No masses or vegetations noted BP: 133 / 63 HR: 86 Rhythm: MEASUREMENTS (Male / Female) Normal Values Technical Quality:Good 2D ECHO LV Diastolic Diameter PLAX 5.3 cm 4.2 - 5.9 / 3.9 - 5.3 cm LV Systolic Diameter PLAX 4.2 cm IVS Diastolic Thickness 0.7 cm 0.6 - 1.0 / 0.6 - 0.9 cm LVPW Diastolic Thickness 0.7 cm 0.6 - 1.0 / 0.6 - 0.9 cm LV Relative Wall Thickness 0.3 RV Internal Dim ED PLAX 2.0 cm LA Systolic Diameter LX 3.2 cm 3.0 - 4.0 / 2.7 - 3.8 cm DOPPLER Mitral E Point Velocity 86.9 cm/s Mitral A Point Velocity 60.2 cm/s Mitral E to A Ratio 1.4 TR Peak Velocity 229.0 cm/s TR Peak Gradient 21.0 mmHg FINDINGS LEFT VENTRICLE Normal left ventricular size. Wall thickness is normal. The left ventricular systolic function is mildly reduced with an estimated ejection fraction in the range of 45- 50%. RIGHT VENTRICLE Normal right ventricular size and systolic function. LEFT ATRIUM The left atrial size is normal. RIGHT ATRIUM The right atrial size is normal. ATRIAL SEPTUM Normal atrial septal thickness without atrial level shunting by limited color doppler interrogation. AORTA The aortic root and proximal ascending aorta are normal in size on limited imaging. MITRAL VALVE Structurally normal mitral valve. No mitral valve stenosis or regurgitation. AORTIC VALVE Trileaflet aortic valve. No aortic valve stenosis or regurgitation. TRICUSPID VALVE There is trace tricuspid valve regurgitation. PULMONARY VALVE The pulmonary valve is not well visualized. VESSELS The inferior vena cava is normal in size. PERICARDIUM No pericardial effusion. Xavier Barrett MD (Electronically Signed) Final Date:06 March 2017 16:58
[2017-03-06 20:00] VITALS: BP 108/64; PULSE 70; RESP 20; TEMP 96.4; O2SAT 96
[2017-03-06] MEDS: traZODone HCL 50 MG TAB PO SCH (20:57)
[2017-03-06] MEDS: AMITRIPTYLINE HCL 50 MG TAB PO SCH (20:57)
[2017-03-07] VITALS: BP 114/63; PULSE 72; RESP 18; TEMP 98.9; O2SAT 98
[2017-03-07] MEDS: ENOXAPARIN SODIUM 40 MG/0.4 ML SYRINGE SQ SCH (00:22)
[2017-03-07] MEDS: HYDROmorphone HCL PF 1 MG/ML VIAL IV PUSH PRN ×5 (00:23→20:53)
[2017-03-07] MEDS: ACETAMINOPHEN/HYDROcodone 325 MG/10 MG TAB PO PRN ×4 (01:17→18:57)
[2017-03-07] MEDS: ALPRAZolam 1 MG TAB PO PRN ×2 (01:17→09:01)
[2017-03-07] MEDS: ZOLPIDEM TARTRATE 10 MG TAB PO PRN (01:17)
[2017-03-07] MEDS: PIPERACIL-TAZO 3.375 GM PREMIX 50 ML IV SCH ×4 (01:33→20:53)
[2017-03-07] MEDS: VANCOMYCIN INJ 2,000 MG in SODIUM CHLORID 0.9% 500 ML INJ 500 ML IV SCH ×2 (06:38→16:39)
[2017-03-07 08:00] VITALS: BP 108/60; PULSE 55; RESP 16; TEMP 97.3; O2SAT 95
[2017-03-07] MEDS: PANTOPRAZOLE SOD 40 MG DELAYED RELEASE TAB PO SCH (09:00)
[2017-03-07] MEDS: MULTIVITAMINS/IRON/MINERALS CHEWABLE TAB CHEW SCH (09:00)
[2017-03-07] MEDS: SODIUM CHLORIDE 0.9% FLUSH 10 ML FLUSH IV FLUSH SCH ×2 (09:01→20:53)
[2017-03-07] MEDS: FUROSEMIDE 40 MG TAB PO SCH (09:01)
[2017-03-07] MEDS: GABAPENTIN 400 MG CAP PO SCH ×4 (09:01→20:53)
[2017-03-07] MEDS: PARoxetine HCL 20 MG TAB PO SCH (09:01)
[2017-03-07 09:06] LABS: AUTOMATED NEUTROPHIL # 1.7 TH/MM3 (1.8-7.7); BASOPHIL % 1.2 % (0.0-2.0); EOSINOPHIL # 0.2 TH/MM3 (0-0.4); EOSINOPHIL % 4.3 % (0.0-4.0); HEMATOCRIT 33.3 % (39.0-51.0); HEMO FLAGS DIFF FINAL; LYMPH % 43.4 % (9.0-44.0); LYMPHOCYTE # 1.7 TH/MM3 (1.0-4.8); MEAN CELL VOLUME 68.7 FL (80.0-100.0); MEAN CORPUSCULAR HEMOGLOBIN 20.6 PG (27.0-34.0); MONO % 6.9 % (0.0-8.0); NEUT % 44.2 % (16.0-70.0); PLATELET COUNT 293 TH/MM3 (150-450); RED BLOOD COUNT 4.85 MIL/MM3 (4.50-5.90); RED CELL DISTRIBUTION WIDTH 17.4 % (11.6-17.2); WHITE BLOOD COUNT 3.9 TH/MM3 (4.0-11.0)
[2017-03-07 12:00] VITALS: BP 95/53; PULSE 80; RESP 16; TEMP 97.6; O2SAT 96
--- NOTE | 2017-03-07 13:00 | HHI.FPPN ---
Subjective Remarks Patient doing well this morning. Denies cp, n/v/d, sob, fevers or chills. Still having hip pain. (Jairon Cyr MD, R3) Objective Vitals Vital Signs Date Time Temp Pulse Resp B/P (MAP) Pulse Ox O2 Delivery O2 Flow Rate FiO2 03/07/17 12:00 97.6 80 16 95/53 (67) 96 03/07/17 08:00 97.3 55 16 108/60 (76) 95 03/07/17 00:00 98.9 72 18 114/63 (80) 98 03/06/17 20:00 96.4 70 20 108/64 (79) 96 03/06/17 16:00 98.1 86 18 114/66 (82) 93 I/O 03/06/17 03/06/17 03/06/17 03/07/17 03/07/17 03/07/17 06:59 14:59 22:59 06:59 14:59 22:59 Intake Total 750 ml 2580 ml 930 ml Output Total 1425 ml 3750 ml 2100 ml 700 ml Balance -675 ml -1170 ml -1170 ml -700 ml Intake Oral 2010 ml 880 ml IV Total 750 ml 570 ml 50 ml Output Urine Total 1425 ml 3750 ml 2000 ml 300 ml Stool Total 100 ml 400 ml # Bowel Movements 1 (Jairon Cyr MD, R3) Result Diagram: 03/07/17 0831 03/06/17 0711 Objective Remarks GENERAL: This is a well-nourished, well-developed patient in no acute distress lying in bed. SKIN: 4-5 cm diameter ulcer of the left sacrum, skin breakdown of the surrounding area observed. Another larger ulcer of the left lower buttock (9 cm x 4 cm x 3cm) that penetrates to muscle layer. No drainage or necrosis observed. Good granulation tissue that is beefy red and no exudates for each wound with the smaller one being more shallow HEAD: Atraumatic. Normocephalic. MMM. No rhinorrhea. No visible LAD or JVD appreciated. EYES: EOMI. No injection or drainage. NECK: Trachea midline. CARDIOVASCULAR: Regular rate and rhythm without murmurs, gallops, or rubs. RESPIRATORY: Clear to auscultation bilaterally with no CRW. No increased work of breathing. GASTROINTESTINAL: Abdomen soft, non-tender, nondistended. Ostomy bag in the RUQ with appropriate output. No signs of breakdown or infection. MUSCULOSKELETAL: No erythema or swelling of the extremities. Patient wheelchair bound at baseline. NEUROLOGICAL: Nonfocal AAO 3. No motor strength or sensation of the lower extremities. Normal speech. (Jairon Cyr MD, R3) A/P Assessment and Plan Patient is a 41 year old male with a history of paraplegia admitted for treatment of sepsis 2/2 to UTI vs other cause. Other possible contributory sources include sacral wound, PICC line site, or ostomy site. Discharge Planning Pending ID recommendations planned for 03/07 (Jairon Cyr MD, R3) Attending Attestation Patient seen and examined. Case reviewed and discussed with the resident team. Agree with plan of care as discussed with me and documented in the resident note. he reported his hip pain was chronic and happened for a long time at home prior to this hospitalization. He has done well with no fevers and good WBC (Sherry Contreras MD) Problem List: (1) Sepsis ICD Codes: A41.9 - Sepsis, unspecified organism Status: Acute Plan: On admission, T 103.1, pt reports he was 105 at home, tachycardic; UA + for LE and bacteria; hx of treatment with dapto and cipro Clinically improving. Differential diagnosis: * Source of infection: PICC line versus UTI versus sacral ulcer Labs: * WBC: 2.5 (03/04) <- 6.2 (03/03) * Lactic Acid: 2.3 (03/02) <- 3.1 (03/02) Microbiology: * Blood culture: proteus species x 2. * Wound culture: enterococcus, MRSA, and proteus. could be in the wound but not all causing infection as the wound does not have any obvious abscess or pus. The wounds appear clean today * Urine culture: Mixed neri. * New blood cultures ordered 03/03 no growth so far. Imaging: * Chest X-ray: Stable areas of suspected pleural scarring at the left lateral base and minimally at the right base. A new acute abnormality is not clearly seen. Orders/Medications: * ID consult: Ordered new blood culture, discontinued vancomycin but now restarted, agreed with Zosyn management. * Wound care consult: Please cleanse wounds to L ischium and sacrum with normal saline. Apply 1/4 strength or 0.125% Dakin's moistened gauze packed in to wound beds and cover with dry cover dressing. resume wound VAC to L ischium and sacral wounds as previously ordered for Home health care. Please order VAC from [facility] for use in hospital. Switch patient to home VAC when discharged. * PICC line removed on 03/03. no growth so far but it was old and needed to be removed with his bacteremia * Hilton exchanged in ED on 03/02. * Zosyn 50 ml at 100 mls/hr q6hr IV. (03/02- ) * Vancomycin, pharmacy consulted. (03/04- ) * NS 1,000 ml at 75 mls/hr. (2) UTI (lower urinary tract infection) ICD Codes: N39.0 - Urinary tract infection, site not specified Status: Chronic Plan: See Plan for Sepsis. (3) Pressure ulcer ICD Codes: L89.90 - Decubitus ulcer Status: Chronic Plan: See Plan for Sepsis. (4) Anemia ICD Codes: D64.9 - Anemia, unspecified Status: Acute Plan: Stable. Suspicion for iron deficiency due to malnutrition as patient states he only eats one meal/day. No current suspicion for blood loss. Labs: * Hgb: 9.8 (03/03) <- 9.8 (03/02) * Hct: 32.5 (03/04) <- 31.2 (03/02) * Iron: 11L * TIBC: 249L * % Saturation: 4.4L * Ferritin: 30 * Hemoccult: Positive 03/06 Orders: * Iron 2 tablets daily (5) Hypokalemia ICD Codes: E87.6 - Hypokalemia Plan: Resolved. Labs: * K: 4.4 (03/04) <- 3.1 (03/02) Imaging: * EKG shows no QRS or T wave changes. 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 * [place] 5 q4hr PO PRN Pain 1-5. * [place] 10 q4hr PO PRN Pain 6-10. * Dilaudid 1 mg q3hr IV PRN Breakthrough pain. (7) Neurogenic bladder ICD Codes: N31.9 - Neurogenic bladder Status: Chronic Plan: Currently Hilton in place. Monitor I/Os (8) Depression ICD Codes: F32.9 - Major depressive disorder, single episode, unspecified Status: Chronic Plan: Continue home Amitriptyline 50 mg PO HS, Paxil 20 mg PO daily, and trazodone 150 mg PO HS. (9) Anxiety ICD Codes: F41.9 - Anxiety disorder, unspecified Status: Chronic Plan: Continue home Alprazolam 1 mg PO QID PRN. (10) WBC decreased ICD Codes: D72.819 - Decreased white blood cell count, unspecified Status: Acute Plan: Possibly due to sepsis. Per chart review, patient without leukopenia before. Clinically well. Differential includes medication/antibiotic side effect or septic event. -Continue to monitor (11) GERD (gastroesophageal reflux disease) ICD Codes: K21.9 - Gastro-esophageal reflux disease without esophagitis Status: Chronic Plan: Protonix 40 mg PO daily (12) FEN Plan: Fluids: * NS 1,000 ml at 75 mls/hr. Electrolytes: * Monitor and replete as necessary. Nutrition: * Regular diet. GI prophy: * Protonix 40 mg PO. DVT prophy: * Lovenox SQ daily. (Jairon Cyr MD, R3) Problem Qualifiers (1) Sepsis: Qualified Codes: A41.9 - Sepsis, unspecified organism (2) Pressure ulcer: Qualified Codes: L89.154 - Pressure ulcer of sacral region, stage 4 (3) Anemia: Qualified Codes: D50.9 - Iron deficiency anemia, unspecified (4) Depression: Qualified Codes: F32.9 - Major depressive disorder, single episode, unspecified (5) WBC decreased: Qualified Codes: D72.810 - Lymphocytopenia (6) GERD (gastroesophageal reflux disease): Qualified Codes: K21.9 - Gastro-esophageal reflux disease without esophagitis Jairon Cyr MD, R3 Mar 07, 2017 13:00 Sherry Contreras MD Mar 09, 2017 12:00
[2017-03-07] MEDS: SODIUM CHLOR 0.9% 1000 ML INJ 1,000 ML IV SCH (14:58)
[2017-03-07 16:00] VITALS: BP 106/62; PULSE 77; RESP 16; TEMP 97.3; O2SAT 92
[2017-03-07] MEDS: LACTOBACILLUS ACIDOPHILUS TAB PO SCH ×2 (16:49→20:53)
--- NOTE | 2017-03-07 16:55 | HHI.IDPN ---
Note Infectious Disease Note ID follow up. Patient admitted with fever. Positive Blood cultures. Chronic decubitus at the sacrum. Alert and oriented. No fever. History of paraplegia. Objective: Vital Signs Date Time Temp Pulse Resp B/P (MAP) Pulse Ox O2 Delivery O2 Flow Rate FiO2 03/07/17 12:00 97.6 80 16 95/53 (67) 96 03/07/17 08:00 97.3 55 16 108/60 (76) 95 03/07/17 00:00 98.9 72 18 114/63 (80) 98 03/06/17 20:00 96.4 70 20 108/64 (79) 96 Laboratory Tests Test 03/06/17 07:11 03/07/17 08:31 White Blood Count 3.9 TH/MM3 3.9 TH/MM3 Red Blood Count 4.49 MIL/MM3 4.85 MIL/MM3 Hemoglobin 9.3 GM/DL 10.0 GM/DL Hematocrit 31.0 % 33.3 % Mean Corpuscular Volume 69.2 FL 68.7 FL Mean Corpuscular Hemoglobin 20.8 PG 20.6 PG Mean Corpuscular Hemoglobin Concent 30.0 % 30.0 % Red Cell Distribution Width 17.1 % 17.4 % Platelet Count 282 TH/MM3 293 TH/MM3 Mean Platelet Volume 6.7 FL 6.2 FL Neutrophils (%) (Auto) 45.7 % 44.2 % Lymphocytes (%) (Auto) 45.7 % 43.4 % Monocytes (%) (Auto) 3.8 % 6.9 % Eosinophils (%) (Auto) 3.8 % 4.3 % Basophils (%) (Auto) 1.0 % 1.2 % Neutrophils # (Auto) 1.8 TH/MM3 1.7 TH/MM3 Lymphocytes # (Auto) 1.8 TH/MM3 1.7 TH/MM3 Monocytes # (Auto) 0.1 TH/MM3 0.3 TH/MM3 Eosinophils # (Auto) 0.1 TH/MM3 0.2 TH/MM3 Basophils # (Auto) 0.0 TH/MM3 0.0 TH/MM3 CBC Comment DIFF FINAL DIFF FINAL Differential Comment Laboratory Tests Test 03/06/17 07:11 Blood Urea Nitrogen 11 MG/DL Creatinine 0.62 MG/DL Random Glucose 108 MG/DL Calcium Level 8.2 MG/DL Sodium Level 137 MEQ/L Potassium Level 3.9 MEQ/L Chloride Level 101 MEQ/L Carbon Dioxide Level 31.0 MEQ/L Anion Gap 5 MEQ/L Estimat Glomerular Filtration Rate 143 ML/MIN Microbiology Date/Time Source Procedure Growth Status 03/06/17 14:21 Stool Stool Stool Occult Blood (ADRIAN) - Final HEMOCCULT NEGATIVE Complete 03/06/17 01:30 Stool Stool Stool Occult Blood (ADRIAN) - Final HEMOCCULT POSITIVE Complete 03/05/17 13:45 Stool Stool Stool Occult Blood (ADRIAN) - Final HEMOCCULT NEGATIVE Complete Chest X-Ray 03/02/17 1813 Signed Impressions: Service Date/Time: , March 02, 2017 18:19 - CONCLUSION: Stable areas of suspected pleural scarring at the left lateral base and minimally at the right base. A new or acute abnormality is not clearly seen. Shmuel Jason MD GENERAL: Patient is in no acute distress. Alert and oriented. HEENT: [place]. EOMI, No icterus. NECK: Supple. No adenopathy. LUNGS: Clear breath sounds. CARDIAC: Regular rate and rhythm BUTTOCK: Stage 4 decubitus ulcer at the left ischium. Clean and well granulated. Another 2cm x 1 cm stage 2 ulcer at the sacrum - clean and well granulated. ABDOMEN: Soft, non tender. EXTREMITIES: No CCE. SKIN: No rash. IMPRESSION: Sepsis secondary to PIC line - Stenotrophomonas/Proteus. Chronic decubitus ulcer ischium/sacrum. Proteus and MRSA. RECOMMEND: Continue Wound vac treatment. Change antibiotic to PO Bactrim DS 1 tab BID x 1 week. Arrange for follow up with wound care clinic. Pérez Veras MD Mar 07, 2017 16:55
[2017-03-07] MEDS ORDERED: BACT800T5 PO (16:58)
--- NOTE | 2017-03-07 17:34 | PD.WCN.NOT ---
Wound Consult Description: Received consult for Wound VAC placement from Doctor Roberts Communicated with: AUBREY Francisco and Doctor Veras Infectious disease. Recommendation: Please Cleanse wounds to L ischium and sacrum with normal saline.Apply wound VAC to L ischial wound with setting at 125 mm/hg, continuous low suction. Change wound VAC on Monday and then change Monday -Monday and Monday. Apply adhesive foam dressing to sacral wound and change dressing every 3 days or PRN if saturated or dislodged. Please apply skin prep to periwound before applying dressing. Neg Pressure Wound Therapy Wound Location Wound Location: L Ischium Wound Description Length: 3.8cm Width: 7 cm Depth: ~5cm Wound bed appearance: 90% red granulation tissue, dull red muscle tissue at the base. Periwound appearance: Unremarkable Settings Suction: 125 mmHg, Continuous Intensity: Low Other Information: Bridged, Windowpaned, Mushroomed Foam type: Black Number of pieces: 1 Additonal Information Patient seen on [address] [place] [address] for wound VAC dressing application. Doctor Veras and Syl Francisco RN [address] [place] [address] in room removing dressing for wound assessment. Doctor Veras is OK with wound VAC placement. Wound measurements and description is noted above. Cleansed wound with normal saline and pat dry. Skin prep was then applied to periwound and up top L anterior thigh. Window paned wound with VAC drape and bridged drape to L anterior thigh. Applied 1 long strip of granufoam and coiled into wound bed in a cinnamon roll fashion. Stoma paste was applied to periwound skin folds to seal VAC dressing.Bridged granufoam from wound bed to L anterior thigh. Applied mushroom cap of granufoam over bridged granufoam with Sensi trac pad attached. Covered exposed foam with VAC drape. Wound VAC is suctioning at 125mm/hg continuous low suction , with low leak rate. Muna Ramirez [facility] Mar 07, 2017 17:34
[2017-03-07 20:17] VITALS: BP 130/64; PULSE 80; RESP 20; TEMP 98.1; O2SAT 98
[2017-03-07] MEDS: traZODone HCL 50 MG TAB PO SCH (20:53)
[2017-03-07] MEDS: AMITRIPTYLINE HCL 50 MG TAB PO SCH (20:54)
[2017-03-07] MEDS: SODIUM HYPOCHLORITE 0.125% 500 ML BTL TOPICAL SCH (20:56)
[2017-03-08] MEDS: HYDROmorphone HCL PF 1 MG/ML VIAL IV PUSH PRN ×2 (00:02→06:45)
[2017-03-08] MEDS: ENOXAPARIN SODIUM 40 MG/0.4 ML SYRINGE SQ SCH (00:02)
[2017-03-08 00:03] VITALS: BP 117/60; PULSE 82; RESP 20; TEMP 97.4; O2SAT 98
[2017-03-08] MEDS: SODIUM CHLOR 0.9% 1000 ML INJ 1,000 ML IV SCH ×2 (00:10→07:39)
[2017-03-08] MEDS: ZOLPIDEM TARTRATE 10 MG TAB PO PRN (01:01)
[2017-03-08] MEDS: ALPRAZolam 1 MG TAB PO PRN ×2 (01:01→06:44)
[2017-03-08] MEDS: ACETAMINOPHEN/HYDROcodone 325 MG/10 MG TAB PO PRN ×3 (01:03→10:20)
[2017-03-08] MEDS: PIPERACIL-TAZO 3.375 GM PREMIX 50 ML IV SCH ×2 (01:06→08:40)
[2017-03-08] MEDS ORDERED: PHARMACY ORDERED LAB ONE (05:45)
[2017-03-08 08:00] VITALS: BP 105/61; PULSE 87; RESP 16; TEMP 96.4; O2SAT 92
[2017-03-08] MEDS: SODIUM CHLORIDE 0.9% FLUSH 10 ML FLUSH IV FLUSH SCH (08:31)
[2017-03-08] MEDS: PANTOPRAZOLE SOD 40 MG DELAYED RELEASE TAB PO SCH (08:32)
[2017-03-08] MEDS: MULTIVITAMINS/IRON/MINERALS CHEWABLE TAB CHEW SCH (08:32)
[2017-03-08] MEDS: LACTOBACILLUS ACIDOPHILUS TAB PO SCH (08:32)
[2017-03-08] MEDS: PARoxetine HCL 20 MG TAB PO SCH (08:32)
[2017-03-08] MEDS: GABAPENTIN 400 MG CAP PO SCH ×2 (08:32→12:24)
[2017-03-08] MEDS: SODIUM HYPOCHLORITE 0.125% 500 ML BTL TOPICAL SCH (08:33)
[2017-03-08] MEDS: FUROSEMIDE 40 MG TAB PO SCH (08:33)
--- NOTE | 2017-03-08 09:02 | HHI.FPPN ---
Subjective Remarks Patient seen and examined this morning. No acute events overnight per nursing staff. Patient states that he feels 100% better and is ready to be discharged home. He was counseled today infectious disease would like him to follow-up in one week and continue with Bactrim DS orally 2 times a day. He currently has no complaints and denies any fevers, chills, shortness of breath, chest pain, NVD, abdominal pain, or calf tenderness. (Gunnar Gruber MD R2) Objective Vitals Vital Signs Date Time Temp Pulse Resp B/P (MAP) Pulse Ox O2 Delivery O2 Flow Rate FiO2 03/08/17 08:00 96.4 87 16 105/61 (76) 92 03/08/17 00:03 97.4 82 20 117/60 (79) 98 03/07/17 20:17 98.1 80 20 130/64 (86) 98 03/07/17 16:00 97.3 77 16 106/62 (77) 92 03/07/17 12:00 97.6 80 16 95/53 (67) 96 I/O 03/07/17 03/07/17 03/07/17 03/08/17 03/08/17 03/08/17 07:00 15:00 23:00 07:00 15:00 23:00 Intake Total 930 ml 1570 ml 400 ml 810 ml 1000 ml Output Total 2100 ml 700 ml 1900 ml 2100 ml Balance -1170 ml 870 ml -1500 ml -1290 ml 1000 ml Intake Oral 880 ml 300 ml 760 ml IV Total 50 ml 1570 ml 100 ml 50 ml 1000 ml Output Urine Total 2000 ml 300 ml 1900 ml 1800 ml Stool Total 100 ml 400 ml 300 ml # Bowel Movements 0 (Gunnar Gruber MD R2) Result Diagram: 03/07/17 0831 03/06/17 0711 Objective Remarks GENERAL: This is a well-nourished, well-developed patient in no acute distress lying in bed. SKIN: 4-5 cm diameter ulcer of the left sacrum, skin breakdown of the surrounding area observed. Another larger ulcer of the left lower buttock (9 cm x 4 cm x 3cm) that penetrates to muscle layer. No drainage or necrosis observed. Good granulation tissue that is beefy red and no exudates for each wound with the smaller one being more shallow HEAD: Atraumatic. Normocephalic. MMM. No rhinorrhea. No visible LAD or JVD appreciated. EYES: EOMI. No injection or drainage. NECK: Trachea midline. CARDIOVASCULAR: Regular rate and rhythm without murmurs, gallops, or rubs. RESPIRATORY: Clear to auscultation bilaterally with no CRW. No increased work of breathing. GASTROINTESTINAL: Abdomen soft, non-tender, nondistended. Ostomy bag in the RUQ with appropriate output. No signs of breakdown or infection. MUSCULOSKELETAL: No erythema or swelling of the extremities. Patient wheelchair bound at baseline. NEUROLOGICAL: Nonfocal AAO 3. No motor strength or sensation of the lower extremities. Normal speech. (Gunnar Gruber MD R2) A/P Assessment and Plan Patient is a 41 year old male with a history of paraplegia admitted for treatment of sepsis 2/2 to UTI vs other cause. Other possible contributory sources include sacral wound, PICC line site, or ostomy site. Discharge Planning Today with wound care and PCP follow up (Gunnar Gruber MD R2) Attending Attestation Patient seen and examined. Case reviewed and discussed with the resident team. Agree with plan of care as discussed with me and documented in the resident note. Mr Thurston was concerned about going only on oral abx but I explained that this was the recommendation of ID. He was concerned about "having to come back to the hospital". I discussed that he has had an unfortunate few years and multiple infections but fortunately is doing very well right now. He, per report wanted to go home not rehab. He has Fe deficiency and did have a heme positive stool. He is only 41 and has had so many health problems. He can consult his outpt Dr on when he would be well enough to get a colonoscopy. He was told he was FE deficient and advised to take OTC meds for Fe daily. (Sherry Contreras MD) Problem List: (1) Sepsis ICD Codes: A41.9 - Sepsis, unspecified organism Status: Acute Plan: On admission, T 103.1, pt reports he was 105 at home, tachycardic; UA + for LE and bacteria; hx of treatment with dapto and cipro Clinically improving. Differential diagnosis: * Source of infection: PICC line versus UTI versus sacral ulcer Labs: * WBC: 2.5 (03/04) <- 6.2 (03/03) * Lactic Acid: 2.3 (03/02) <- 3.1 (03/02) Microbiology: * Blood culture: proteus species x 2. * Wound culture: enterococcus, MRSA, and proteus. Could be in the wound but not all causing infection as the wound does not have any obvious abscess or pus. Wounds appear clean on exam. * Urine culture: Mixed neri. * New blood cultures ordered 03/03 no growth so far. Imaging: * Chest X-ray: Stable areas of suspected pleural scarring at the left lateral base and minimally at the right base. A new acute abnormality is not clearly seen. Orders/Medications: * ID consult: Ordered new blood culture, discontinued vancomycin but now restarted, agreed with Zosyn management. * Wound care consult: Please cleanse wounds to L ischium and sacrum with normal saline. Apply 1/4 strength or 0.125% Dakin's moistened gauze packed in to wound beds and cover with dry cover dressing. resume wound VAC to L ischium and sacral wounds as previously ordered for Home health care. Please order VAC from [facility] for use in hospital. Switch patient to home VAC when discharged. * PICC line removed on 03/03. no growth so far but it was old and needed to be removed with his bacteremia * Hilton exchanged in ED on 03/02. * Zosyn 50 ml at 100 mls/hr q6hr IV. (03/02-03/08) * Vancomycin, pharmacy consulted. (03/04-03/08) * NS 1,000 ml at 75 mls/hr. * Patient transitioned to Bactrim DS for discharge x1 week (2) UTI (lower urinary tract infection) ICD Codes: N39.0 - Urinary tract infection, site not specified Status: Chronic Plan: See Plan for Sepsis. -Nursing staff reports possible small sediment versus hematuria on Hilton catheterization by emptying overnight. -Repeat UA shows small leukocyte esterase and yeast -Patient be discharged home on Bactrim DS twice a day -Medical team not to treat urinary yeast due to chronic indwelling Hilton without current symptoms (3) Pressure ulcer ICD Codes: L89.90 - Decubitus ulcer Status: Chronic Plan: See Plan for Sepsis. (4) Anemia ICD Codes: D64.9 - Anemia, unspecified Status: Acute Plan: Stable. Suspicion for iron deficiency due to malnutrition as patient states he only eats one meal/day. No current suspicion for blood loss. Labs: * Hgb: 9.8 (03/03) <- 9.8 (03/02) * Hct: 32.5 (03/04) <- 31.2 (03/02) * Iron: 11L * TIBC: 249L * % Saturation: 4.4L * Ferritin: 30 * Hemoccult: Positive 03/06 Orders: * Iron 2 tablets daily (5) Hypokalemia ICD Codes: E87.6 - Hypokalemia Plan: Resolved. Labs: * K: 4.4 (03/04) <- 3.1 (03/02) Imaging: * EKG shows no QRS or T wave changes. 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 * [place] 5 q4hr PO PRN Pain 1-5. * [place] 10 q4hr PO PRN Pain 6-10. * Dilaudid 1 mg q3hr IV PRN Breakthrough pain. (7) Neurogenic bladder ICD Codes: N31.9 - Neurogenic bladder Status: Chronic Plan: Currently Hilton in place. Monitor I/Os (8) Depression ICD Codes: F32.9 - Major depressive disorder, single episode, unspecified Status: Chronic Plan: Continue home Amitriptyline 50 mg PO HS, Paxil 20 mg PO daily, and trazodone 150 mg PO HS. (9) Anxiety ICD Codes: F41.9 - Anxiety disorder, unspecified Status: Chronic Plan: Continue home Alprazolam 1 mg PO QID PRN. (10) WBC decreased ICD Codes: D72.819 - Decreased white blood cell count, unspecified Status: Acute Plan: Possibly due to sepsis. Per chart review, patient without leukopenia before. Clinically well. Differential includes medication/antibiotic side effect or septic event. -Continue to monitor (11) GERD (gastroesophageal reflux disease) ICD Codes: K21.9 - Gastro-esophageal reflux disease without esophagitis Status: Chronic Plan: Protonix 40 mg PO daily (12) FEN Plan: Fluids: * NS 1,000 ml at 75 mls/hr. Electrolytes: * Monitor and replete as necessary. Nutrition: * Regular diet. GI prophy: * Protonix 40 mg PO. DVT prophy: * Lovenox SQ daily. (Gunnar Gruber MD R2) Problem Qualifiers (1) Sepsis: Qualified Codes: A41.9 - Sepsis, unspecified organism (2) Pressure ulcer: Qualified Codes: L89.154 - Pressure ulcer of sacral region, stage 4 (3) Anemia: Qualified Codes: D50.9 - Iron deficiency anemia, unspecified (4) Depression: Qualified Codes: F32.9 - Major depressive disorder, single episode, unspecified (5) WBC decreased: Qualified Codes: D72.810 - Lymphocytopenia (6) GERD (gastroesophageal reflux disease): Qualified Codes: K21.9 - Gastro-esophageal reflux disease without esophagitis Gunnar Gruber MD R2 Mar 08, 2017 09:02 Sherry Contreras MD Mar 09, 2017 12:05
[2017-03-08] MEDS ORDERED: LACT PO (09:09)
[2017-03-08] MEDS ORDERED: SENN187 PO (09:09)
[2017-03-08] MEDS ORDERED: FLINT2 CHEW (09:09)
--- NOTE | 2017-03-08 09:10 | HHI.DCPOC ---
Discharge Care Plan Diagnosis: (1) Sepsis (2) Pressure ulcer Goals to Promote Your Health * To prevent worsening of your condition and complications * To maintain your health at the optimal level Directions to Meet Your Goals Take your medications as prescribed Follow your dietary instruction Follow activity as directed Keep your appointments as scheduled Take your immunizations and boosters as scheduled If your symptoms worsen call your PCP, if no PCP go to Urgent Care Center or Emergency Room Smoking is Dangerous to Your Health. Avoid second hand smoke Call the 24-hour hour crisis hotline for domestic abuse at Gunnar Gruber MD R2 Mar 08, 2017 09:10
[2017-03-08 09:18] LABS: AUTOMATED NEUTROPHIL # 2.2 TH/MM3 (1.8-7.7); BASOPHIL # 0.1 TH/MM3 (0-0.2); BASOPHIL % 1.3 % (0.0-2.0); EOSINOPHIL # 0.2 TH/MM3 (0-0.4); EOSINOPHIL % 3.1 % (0.0-4.0); HEMATOCRIT 35.5 % (39.0-51.0); HEMO FLAGS DIFF FINAL; LYMPH % 44.7 % (9.0-44.0); LYMPHOCYTE # 2.2 TH/MM3 (1.0-4.8); MEAN CELL VOLUME 69.2 FL (80.0-100.0); MEAN CORPUSCULAR HEMOGLOBIN 20.9 PG (27.0-34.0); MEAN CORPUSCULAR HGB CONC 30.3 % (32.0-36.0); MONO % 5.3 % (0.0-8.0); NEUT % 45.6 % (16.0-70.0); PLATELET COUNT 313 TH/MM3 (150-450); RED BLOOD COUNT 5.12 MIL/MM3 (4.50-5.90); RED CELL DISTRIBUTION WIDTH 17.3 % (11.6-17.2); WHITE BLOOD COUNT 4.9 TH/MM3 (4.0-11.0)
--- NOTE | 2017-03-08 09:44 | HHI.FF ---
Face to Face Verification Diagnosis: (1) Pressure ulcer (2) Sepsis (3) Anemia (4) Paraplegia following spinal cord injury Home Health Nursing Order: Medical education Signs/symptoms of disease process Medication education-adverse effect Wound care and dressing changes Nursing assessment with vital signs Instructions: Wound Care Directions: Please Cleanse wounds to L ischium and sacrum with normal saline.Apply wound VAC to L ischial wound with setting at 125 mm/hg, continuous low suction. Change wound VAC on Monday and then change Monday -Monday and Monday. Apply adhesive foam dressing to sacral wound and change dressing every 3 days or PRN if saturated or dislodged. Please apply skin prep to periwound before applying dressing. Wound Description Wound Location: L Ischium Wound Description Length: 3.8cm Width: 7 cm Depth: ~5cm Wound bed appearance: 90% red granulation tissue, dull red muscle tissue at the base. Periwound appearance: Unremarkable Settings Suction: 125 mmHg, Continuous Intensity: Low Other Information: Bridged, Windowpaned, Mushroomed Foam type: Black Number of pieces: 1 I have seen patient Dima Peñaannabel Thurston Jr on 03/08/17. My clinical findings support the need for the requested home health care services because: Ltd mobility - disease progression Deconditioned w/ increased weakness Med compliance is questionable Limited ability to care for self High risk of falls Infection w/ risk of complications I certify that my clinical findings support that this patient is homebound because: Unsteady gait/balance Unsafe to leave home unassisted [id number] bed/chair Gunnar Gruber MD R2 Mar 08, 2017 09:44
[2017-03-08] MEDS ORDERED: SULFAMETHOXAZOLE-TRIMETHOPRIM DS 800-160 MG TAB PO SCH (10:00)
[2017-03-08 10:16] LABS: ALKALINE PHOSPHATASE 83 U/L (45-117); ALT (GPT) 23 U/L (12-78); ANION GAP 7 MEQ/L (5-15); AST (GOT) 24 U/L (15-37); BICARBONATE 30.1 MEQ/L (21.0-32.0); BLOOD UREA NITROGEN 19 MG/DL (7-18); CHLORIDE 100 MEQ/L (98-107); GLOMERULAR FILTRATION RATE 131 ML/MIN (>89); POTASSIUM 4.1 MEQ/L (3.5-5.1); SODIUM (NA) 137 MEQ/L (136-145); TOTAL BILIRUBIN ADULT 0.2 MG/DL (0.2-1.0)
[2017-03-08 12:00] VITALS: BP 98/62; PULSE 94; RESP 16; TEMP 97.7; O2SAT 94
[2017-03-08 13:28] LABS: BACTERIA, URINE RARE /hpf; BLOOD, URINE NEG (NEG); GLUCOSE,URINE NEG (NEG); KETONE, URINE NEG (NEG); MUCUS URINE FEW /lpf (OCC); NITRITE,URINE NEG (NEG); PH, URINE 7.5 (5.0-8.5); SQUAMOUS EPITHELIAL CELL URINE <1 /hpf (0-5); URINE COLOR LIGHT-YELLOW (YELLW/STRAW)
[2017-03-08 13:32] LABS: COMMENT (UR) CATH-CULTURE IND; CULTURE IF INDICATED CATH CULTURE IND
== END 2017-03-08 15:55 | disposition home or self-care (01) | DRG 314 ==
LOC: NEPE 17:43 → NEDA 21:39 → N07A 23:32
PROVIDERS: ADMIT Family Medicine; ATTEND Family Medicine
DX: T80.219A Unspecified infection due to central venous catheter, initial encounter (principal); A41.9 Sepsis, unspecified organism; L89.154 Pressure ulcer of sacral region, stage 4; G82.20 Paraplegia, unspecified; E87.1 Hypo-osmolality and hyponatremia; M86.9 Osteomyelitis, unspecified; N39.0 Urinary tract infection, site not specified; N31.9 Neuromuscular dysfunction of bladder, unspecified; D75.82 Heparin induced thrombocytopenia (HIT); F17.210 Nicotine dependence, cigarettes, uncomplicated; D50.9 Iron deficiency anemia, unspecified; R00.0 Tachycardia, unspecified; Z93.3 Colostomy status; E87.6 Hypokalemia; F32.9 Major depressive disorder, single episode, unspecified; F41.9 Anxiety disorder, unspecified; K21.9 Gastro-esophageal reflux disease without esophagitis; T45.515A Adverse effect of anticoagulants, initial encounter; Y92.9 Unspecified place or not applicable; G43.909 Migraine, unspecified, not intractable, without status migrainosus; D72.810 Lymphocytopenia; Y84.8 Other medical procedures as the cause of abnormal reaction of the patient, or of later complication, without mention of misadventure at the time of the procedure; Z79.899 Other long term (current) drug therapy; Z87.440 Personal history of urinary (tract) infections; Z74.01 Bed confinement status
CPT/HCPCS: 71010; 80048; 80053; 80202; 81001; 82272; 82550; 82728; 83540; 83550; 83605; 83690; 83735; 84484; 85025; 85027; 85610; 85730; 86403; 87040; 87070; 87071; 87077; 87086; 87102; 87147; 87186; 87205; 87804; 93005; 93306; 94150; 96365; 96375; J1170; J1650; J2543; J3370; J7030; J7040; J7050